=== PATIENT | female | born 1945 | race Caucasian/White ===

== ENCOUNTER 2016-11-10 05:29 | Day surgery (SDC) | payer MEDICARE ==
[2016-11-10] MEDS ORDERED: Dextrose 5%-Lactated Ringers 1,000 ML IV SCH (06:00)
[2016-11-10] MEDS ORDERED: fentaNYL 100 MCG/2 ML SDV ONE (06:48)
[2016-11-10] MEDS ORDERED: Propofol 200 MG/20 ML SDV ONE ×2 (06:48→06:50)
[2016-11-10] MEDS ORDERED: Famotidine 20 MG/2 ML SDV IV PRN (09:45)
[2016-11-10] MEDS ORDERED: Hydrocortisone Sodium Succinate 100 MG/2 ML SDV IV PRN (09:45)
[2016-11-10] MEDS ORDERED: diphenhydrAMINE 50 MG/ML SDV IV PRN (09:45)
[2016-11-10] MEDS ORDERED: Sodium Chloride 0.9% 1,000 ML IV SCH (09:45)
[2016-11-10] MEDS ORDERED: Iron Sucrose Complex 500 MG in Sodium Chloride 0.9% 250 ML IV ONE (10:00)
[2016-11-10 12:53] VITALS: BP 159/81
--- NOTE | 2016-11-16 16:30 | OR ---
DATE OF PROCEDURE: 11/10/2016 PREOPERATIVE DIAGNOSIS: Recent rectal bleeding. POSTOPERATIVE DIAGNOSIS: Recent rectal bleeding associated with excoriated hemorrhoids. OPERATIVE PROCEDURE: Flexible colonoscopy. ANESTHESIA: IV sedation. INDICATION FOR PROCEDURE: This is a 71-year-old female presenting with some recent episodes of rectal bleeding. The patient was placed on chronic Coumadin therapy for atrial fibrillation. The history is suggestive of this being hemorrhoidal in nature as it occurs after bowel movements. The patient denies being consistently constipated. The plan is to proceed with a colonoscopy with biopsies and/or polypectomy as indicated. Potential risks of the procedure including bleeding and perforation were discussed, and the patient wishes to proceed. DESCRIPTION OF PROCEDURE: The patient was taken to the operating room and placed in a left lateral decubitus position. IV sedation was administered, after which the initial digital rectal exam was performed and was unremarkable. Colonoscope was then passed into the rectum with retroflexion revealing more or less diffusely excoriated hemorrhoidal columns. There was no blood or bleeding or single column that would stand out as the likely culprit for the bleeding, but certainly the findings would be consistent with patient with intermittent hemorrhoidal bleeding. The scope was then passed to the level of the cecum. No additional abnormalities were noted. There were no areas of diverticular disease. No polyps or other signs of neoplasia. The scope was then withdrawn. The above findings reconfirmed. At this point, we will have the patient continue to hold off on her Coumadin. We will have the patient see Gabby Oliva and [facility] in about 2 weeks. The patient was noted to be somewhat anemic with hemoglobin 10.6. Her ferritin level was measured, it was quite low at 19, so the patient will be given 510 mg of IV to get that boosted up somewhat and then started on ferrous gluconate 240 mg daily. She will be following with Gabby Oliva in about 2 weeks, and at that time, whether or not to restart the Coumadin can be addressed. Should the patient develop recurrent rectal bleeding, a clinic appointment with surgery department within a day or two of that episode would be preferable as we can likely identify the bleeding source and put hemorrhoid bands as indicated. Gregory Schwartz MD /[id number]
== END 2016-11-10 13:00 | disposition other institution (70) ==
LOC: JP.SDS 05:29
PROVIDERS: ATTEND Surgery
DX: K64.8 Other hemorrhoids (principal); I25.10 Atherosclerotic heart disease of native coronary artery without angina pectoris; I10 Essential (primary) hypertension; E11.9 Type 2 diabetes mellitus without complications; E66.9 Obesity, unspecified; Z88.8 Allergy status to other drugs, medicaments and biological substances
CPT/HCPCS: 36415; 45378; 47000; 82728; 85027; 85610; J1200; J1720; J1756; J2704; J3010; J7042; J7050; S0028

== ENCOUNTER 2016-11-10 13:13 | Inpatient (IN) | payer MEDICARE ==
[2016-11-10] MEDS: Albuterol 0.083% 2.5 MG/3 ML Neb Soln NEB ONE ×2 (13:18→14:18)
[2016-11-10] MEDS ORDERED: Furosemide 40 MG/4 ML VIAL IVPUSH ONE ×2 (13:30→23:35)
[2016-11-10] MEDS ORDERED: Diltiazem 25 MG/5 ML SDV IVPUSH ONE (13:30)
[2016-11-10] MEDS ORDERED: Nitroglycerin 0.4 MG Tab.SL SL ONE (13:38)
[2016-11-10] MEDS ORDERED: Nitroglycerin 0.4 MG Tab.SL ONE (13:38)
[2016-11-10] MEDS ORDERED: Diltiazem 100 MG in Sodium Chloride 0.9% 100 ML IV SCH ×4 (13:45)
--- NOTE | 2016-11-10 13:50 | CR ---
Portable chest Comparison: May 2016. There is cardiac enlargement. There is vascular engorgement. Interstitial infiltrates are demonstrat ed. There are no pleural effusions seen. Impression: 1. CHF with interstitial edema.
[2016-11-10] MEDS: Diltiazem 25 MG/5 ML SDV ONE ×2 (14:15→17:06)
[2016-11-10] MEDS: Furosemide 40 MG/4 ML VIAL ONE ×2 (14:17→17:07)
--- NOTE | 2016-11-10 14:26 | PCM.HP ---
H&P History of Present Illness - General Date of Service: 11/10/16 Admit Problem/Dx: Admission Diagnosis/Problem Admission Diagnosis/Problem Afib, Atrial fibrillation Source of Information: Patient, Provider, Other (Assisted Living insurance healthcare representative Anitra ) History Limitations: Reports: Respiratory distress - History of Present Illness Initial Comments - Free Text/Narative: Olive presented to the hospital today for an outpatient colonoscopy and iron infusion. She had an uneventful colonoscopy but unfortunately during her iron infusion suddenly became very short of breath. Her vital signs quickly went from fairly normal to revealing a heart rate in the 150s as well as a rising blood pressure and quickly dropping oxygen saturation. I was asked to see her in the outpatient setting for further evaluation. her history is somewhat limited because of out of impairment which is chronic. She says that she felt very short of breath and felt like her pants were very tight. She did not complain of any chest pain. She did not notice any palpitations. She has been feeling well recently. She has not had any fevers. She is coughing during our conversation. I did also discuss the situation with her assisted-living coordinator. Per report she has been doing well recently and they have not noticed any concerns. She did not have her morning medications until approximately 11:30 today. When I evaluated her in the outpatient area she was noted to be in atrial fibrillation with a rapid ventricular response and appeared to have a declining respiratory status. She had received Solu-Medrol, Benadryl and Pepcid as part of the usual protocol when there is concern for a transfusion reaction. She was immediately transferred to the ER. - Related Data Allergies/Adverse Reactions: Allergies Allergy/AdvReac Type Severity Reaction Status Date / Time [id number] Reductase Allergy Muscle Verified 11/10/16 06:11 Inhibitor Aches Home Medications: Home Meds Aspirin [Leigha Chewable Aspirin] 81 mg PO DAILY 09/04/13 [History] Diltiazem HCl [Diltiazem ER] 360 mg PO DAILY 09/04/13 [History] Furosemide [Lasix] 40 mg PO DAILY 09/04/13 [History] Lisinopril [Prinivil] 10 mg PO DAILY 09/04/13 [History] Warfarin [Coumadin] 5 mg PO SUTUWETHSA 09/04/13 [History] Carvedilol 6.25 mg PO BID 10/17/14 [History] Warfarin [Coumadin] 6 mg PO MOFR 10/17/14 [History] levETIRAcetam [Levetiracetam] 1,500 mg PO BID 10/17/14 [History] metFORMIN [Glucophage XR] 1,000 mg PO BIDMEALS 10/17/14 [History] Acetaminophen [Tylenol] 650 mg PO ASDIRECTED PRN 05/23/16 [History] Bacitracin/Neomycin/Polymyxin [Neosporin Oint] 1 applic TOP ASDIRECTED PRN 05/24 [History] Calcium Carbonate [Tums] 2 tab PO ASDIRECTED PRN 05/24/16 [History] Ibuprofen 800 mg PO ASDIRECTED PRN 05/24/16 [History] Methyl Salicylate/Menthol [Icy Hot] 1 applic TOP ASDIRECTED PRN 05/24/16 [ History] guaiFENesin [Robitussin] 10 ml PO ASDIRECTED PRN 05/24/16 [History] glipiZIDE [Glucotrol] 5 mg PO BID 11/06/16 [History] Digoxin [Digox] 125 mcg PO DAILY 11/10/16 [History] Past Medical History HEENT History: Reports: Impaired vision Cardiovascular History: Reports: Afib, Bypass, CAD, Hypertension, ND, Stents, Other (see below) Other Cardiovascular History: Edema Gastrointestinal History: Reports: Chronic constipation, GI bleed Genitourinary History: Reports: Urinary incontinence Neurological History: Reports: Neuropathy, peripheral, Seizure, Other (see below ) Other Neuro History: Static Encephalopathy Psychiatric History: Reports: Anxiety, Other (see below) Other Psychiatric History: Mental retardation Endocrine/Metabolic History: Reports: Diabetes, type II, Obesity/BMI 30+ Dermatologic History: Reports: Other (see below) Other Dermatologic History: Actinic Keratosis, Seorrheic Keratosis - Infectious Disease History Infectious Disease History: Reports: Measles - Past Surgical History HEENT Surgical History: Reports: None Cardiovascular Surgical History: Reports: Coronary artery bypass, Coronary artery stent GI Surgical History: Reports: None Female Surgical History: Reports: None Endocrine Surgical History: Reports: None Neurological Surgical History: Reports: None Dermatological Surgical History: Reports: None Social & Family History - Family History Cardiac: Denies: CAD - Tobacco Use Smoking Status *Q: Never Smoker Second Hand Smoke Exposure: No - Caffeine Use Caffeine Use: Reports: Coffee - Alcohol Use Days Per Week of Alcohol Use: 0 - Recreational Drug Use Recreational Drug Use: No H&P Review of Systems - Review of Systems: Review Of Systems: See Below Free Text/Narrative: A complete 12 point review of systems was obtained. Pertinent positives and negatives are noted in the history of present illness. All other systems were reviewed and were negative except as noted. Exam - Exam Exam: See Below - Vital Signs Vital Signs: Last Vital Signs Temp Pulse 124 H 11/10/16 13:58 Resp BP 000/000 H 11/10/16 14:16 Pulse Ox Weight: 72.5 kg - Exam Quality Assessment: supplemental oxygen, urinary catheter General: alert, cooperative, moderate distress HEENT: Conjunctiva clear, Mucosa moist & pink. No: Scleral icterus Neck: supple, trachea midline. No: lymphadenopathy, thyromegaly Lungs: Rales (diffuse rales throughout all lung dominguez). No: Normal respiratory effort (increased work of breathing ), Wheezing Cardiovascular: irregular rhythm, tachycardia. No: systolic murmur Abdomen: Normal Bowel Sounds, Soft. No: Distention, Tenderness Back Exam: normal inspection. No: full range of motion Extremities: normal inspection. No: cyanosis, edema Peripheral Pulses: 2+: dorsalis pedis (L), dorsalis pedis (R) Skin: warm, dry, intact Neuro Extensive - Mental Status: alert, nl response to commands Neuro Extensive - Motor, Sensory, Reflexes: CN II-XII intact, abnormal motor ( some diffuse rigidity of muscles). No: dysarthria, tremor Psychiatric: alert, normal affect - Patient Data Lab Results last 24 hrs: Laboratory Results - last 24 hr 11/10/16 11/10/16 11/10/16 Range/Units 13:33 13:33 13:33 WBC 15.4 H (4.5-11.0) K/uL RBC 4.78 (3.30-5.50) M/uL Hgb 14.4 D (12.0-15.0) g/dL Hct 42.2 (36.0-48.0) % MCV 88 (80-98) fL MCH 30 (27-31) pg MCHC 34 (32-36) % Plt Count 445 H (150-400) K/uL Neut % (Auto) 63 (36-66) % Lymph % (Auto) 26 (24-44) % Caswell % (Auto) 9 H (2-6) % Eos % (Auto) 2 (2-4) % Baso % (Auto) 1 (0-1) % Sodium 138 L (140-148) mmol/L Potassium 3.6 (3.6-5.2) mmol/L Chloride 101 (100-108) mmol/L Carbon Dioxide 25 (21-32) mmol/L Anion Gap 15.6 H (5.0-14.0) mmol/L BUN 6 L (7-18) mg/dL Creatinine 0.9 (0.6-1.0) mg/dL Est Cr Clr Drug Dosing TNP Estimated GFR (MDRD) > 60 (>60) Glucose 218 H (74-106) mg/dL Lactic Acid (0.4-2.0) mmol/L Calcium 8.4 L (8.5-10.1) mg/dL Magnesium 1.8 (1.8-2.4) mg/dL Total Bilirubin 0.2 D (0.2-1.0) mg/dL AST 20 (15-37) U/L ALT 23 (12-78) U/L Alkaline Phosphatase 78 (46-116) U/L Troponin I < 0.017 (0.000-0.056) ng/mL Total Protein 8.6 H (6.4-8.2) g/dL Albumin 3.4 (3.4-5.0) g/dL Globulin 5.2 H (2.3-3.5) g/dL Albumin/Globulin Ratio 0.7 L (1.2-2.2) 11/10/16 Range/Units 13:33 WBC (4.5-11.0) K/uL RBC (3.30-5.50) M/uL Hgb (12.0-15.0) g/dL Hct (36.0-48.0) % MCV (80-98) fL MCH (27-31) pg MCHC (32-36) % Plt Count (150-400) K/uL Neut % (Auto) (36-66) % Lymph % (Auto) (24-44) % Caswell % (Auto) (2-6) % Eos % (Auto) (2-4) % Baso % (Auto) (0-1) % Sodium (140-148) mmol/L Potassium (3.6-5.2) mmol/L Chloride (100-108) mmol/L Carbon Dioxide (21-32) mmol/L Anion Gap (5.0-14.0) mmol/L BUN (7-18) mg/dL Creatinine (0.6-1.0) mg/dL Est Cr Clr Drug Dosing Estimated GFR (MDRD) (>60) Glucose (74-106) mg/dL Lactic Acid 5.3 H (0.4-2.0) mmol/L Calcium (8.5-10.1) mg/dL Magnesium (1.8-2.4) mg/dL Total Bilirubin (0.2-1.0) mg/dL AST (15-37) U/L ALT (12-78) U/L Alkaline Phosphatase (46-116) U/L Troponin I (0.000-0.056) ng/mL Total Protein (6.4-8.2) g/dL Albumin (3.4-5.0) g/dL Globulin (2.3-3.5) g/dL Albumin/Globulin Ratio (1.2-2.2) Result Diagrams: 11/10/16 13:33 11/10/16 13:33 Imaging Impressions last 24 hrs: chest x-ray - images personally reviewed - there is evidence for cardiomegaly, congestive heart failure with diffuse interstitial edema and pulmonary vascular congestion. No evidence for infiltrate or consolidation. EKG INTERPRETATION EKG Date: 11/10/16 Rhythm: a-fib Rate (beats/min): 148 Weatherby: LAD-left axis deviation P-wave: variable QRS: LBBB ST-T: other QT: normal *Q Meaningful Use (ADM) - VTE *Q VTE Criteria *Q: - Stroke *Q Stroke Criteria *Q: - AMI *Q AMI Criteria *Q: - Problem List (1) Atrial fibrillation with rapid ventricular response SNOMED Code(s): 698802819715340 ICD Code: I48.91 - UNSPECIFIED ATRIAL FIBRILLATION Status: Acute Current Visit: Yes (2) Acute congestive heart failure SNOMED Code(s): 70934311 ICD Code: I50.9 - HEART FAILURE, UNSPECIFIED Status: Acute Current Visit : Yes Qualifiers: Congestive heart failure type: unspecified congestive heart failure type Qualified Code(s): I50.9 - Heart failure, unspecified (3) Acute respiratory failure with hypoxia SNOMED Code(s): 59148531, 990229423 ICD Code: J96.01 - ACUTE RESPIRATORY FAILURE WITH HYPOXIA Status: Acute Current Visit: No (4) Diabetes mellitus type II, controlled SNOMED Code(s): 22058048 ICD Code: E11.9 - TYPE 2 DIABETES MELLITUS WITHOUT COMPLICATIONS Status: Chronic Current Visit: No Qualifiers: Diabetes mellitus complication status: with unspecified complications Diabetes mellitus longterm insulin use: without longterm use Qualified Code( s): E11.8 - Type 2 diabetes mellitus with unspecified complications (5) Seizure disorder SNOMED Code(s): 700635749 ICD Code: G40.909 - EPILEPSY, UNSP, NOT INTRACTABLE, WITHOUT STATUS EPILEPTICUS Status: Chronic Current Visit: No Problem List Initiated/Reviewed/Updated: Yes Orders Last 24hrs: Active Orders 24 hr Category Date Time Status Patient Status Manage Transfer [TRANSFER] Routine ADT 11/10/16 14:15 Ordered Cardiac Monitoring [RC] .As Directed Care 11/10/16 13:30 Active EKG Documentation Completion [RC] ASDIRECTED Care 11/10/16 13:29 Active Insert Montoya Catheter [Insert Urinary Catheter] [OM.PC] Care 11/10/16 13:45 Ordered Q24H RT Aerosol Therapy [RC] ASDIRECTED Care 11/10/16 13:31 Active Urinary Catheter Assessment [RC] ASDIRECTED Care 11/10/16 13:32 Active Diltiazem [Cardizem] 100 mg Med 11/10/16 13:45 Active Sodium Chloride 0.9% [Normal Saline] 100 ml IV TITRATE Diltiazem [Cardizem] 100 mg Med 11/10/16 13:45 Active Sodium Chloride 0.9% [Normal Saline] 100 ml IV TITRATE Resuscitation Status Routine Resus Stat 11/10/16 14:19 Ordered EKG 12 Lead [EK] Stat Ther 11/10/16 13:29 Ordered Medication Orders Diltiazem HCl 100 mg/ Sodium (Chloride) 100 mls @ 5 mls/hr IV TITRATE NEW; 5 MG /HR PRN Reason: Protocol Last Admin: 11/10/16 13:58 Dose: 5 mg/hr, 5 mls/hr Diltiazem HCl 100 mg/ Sodium (Chloride) 100 mls @ 5 mls/hr IV TITRATE NEW; 5 MG /HR PRN Reason: Protocol Assessment/Plan Comment:: Assessment and plan - Atrial fibrillation with rapid ventricular response - history of chronic atrial fibrillation. Suboptimal rate control at this time with acute congestive heart failure. Rate has been responding to initial bolus of diltiazem. Blood pressure has tolerated the calcium channel fernie so far. Additional heart failure management as below. -Diltiazem infusion -Cardiac monitoring -Optimize volume status as below -Optimize electrolytes -Continue beta fernie and digoxin -Transition to oral diltiazem, probably in the morning -hold anticoagulation for 2 weeks per recommendations from surgical services Acute congestive heart failure - left ventricular function is unknown at this time. I suspect that the trigger for the heart failure was a combination of chronic atrial fibrillation as well as her colonoscopy preparation last night with significant volume shifts during the preparation. -Recess volume status later in the day -Echocardiogram when available on -Continue beta fernie -Rate control as above History of seizure disorder - no active seizures her recent issues. -Continue antiepileptics Type 2 diabetes mellitus - well controlled by history. -Continue glipizide, hold metformin Maintenance issues - - DVT prophylaxis - enoxaparin - GI prophylaxis - PPI - Nutrition - heart healthy diet - Montoya catheter - placed in the emergency room CODE STATUS - full code Admission justification - This patient will be admitted for inpatient services and is medically appropriate meeting medical necessity for inpatient admission as outlined in my documentation. I reasonably expect the patient will require inpatient services that span a period time over 2 midnights. I reasonably expect this patient to be discharged or transferred within 96 hours [facility]. Disposition - anticipate discharge back to the assisted-living facility after the hospital stay Primary care physician - Dr Miguel Grayson M.D.
[2016-11-10] MEDS ORDERED: Ondansetron 4 MG Tab.DIS PO PRN (16:25)
[2016-11-10] MEDS ORDERED: Morphine 2 MG/ML Syringe IVPUSH PRN (16:25)
[2016-11-10] MEDS ORDERED: Albuterol 0.083% 2.5 MG/3 ML Neb Soln NEB PRN (16:25)
[2016-11-10] MEDS ORDERED: Ondansetron 4 MG/2 ML SDV IV PRN (16:25)
[2016-11-10] MEDS ORDERED: Acetaminophen 325 MG Tab PO PRN (16:25)
[2016-11-10] MEDS ORDERED: Non-Formulary Medication 1 Each (Warfarin [Coumadin] 5 MG) PO ONE (16:25)
[2016-11-10] MEDS ORDERED: Polyethylene Glycol 3350 Powder 17 GM Packet PO PRN (16:25)
[2016-11-10] MEDS ORDERED: Warfarin 5 MG Tab PO ONE (17:00)
[2016-11-10] MEDS: Albuterol 0.083% 2.5 MG/3 ML Neb Soln ONE (17:06)
[2016-11-10] MEDS: glipiZIDE 5 MG Tab PO SCH (17:10)
[2016-11-10] MEDS ORDERED: Aspirin 81 MG Tab.Chew PO ONE (17:46)
[2016-11-10] MEDS ORDERED: Heparin Sodium/D5W 25,000 UNITS/500 ML BAG IV SCH (18:15)
[2016-11-10] MEDS ORDERED: Heparin Sodium 5,000 Units/ML Vial IVPUSH ONE (18:15)
--- NOTE | 2016-11-10 18:45 | PCM.SN ---
- Free Text/Narrative Note: 1700 troponin came back elevated at 3.2. Vital signs have all been stable and patient feels well. She no longer feels short of breath. She is diuresed well with the dose of furosemide. Heart rate is been in the 60s with the diltiazem infusion. Did discuss the case with Dr. Alanis at [facility] in [place]. We're planning to medically manage her here overnight and then we'll transfer her up to the morning for intervention and further evaluation with a coronary angiogram. Heparin drip will be started. She has received a total of 324 mg of aspirin today. Plenty continue the diltiazem infusion overnight as well as a beta fernie as previously scheduled. She will be receiving a statin tonight. Also planning to get serial troponins. Amarjit Grayson MD
[2016-11-10] MEDS: levETIRAcetam 250 MG Tab PO SCH (20:32)
[2016-11-10] MEDS: Carvedilol 6.25 MG Tab PO SCH (20:32)
[2016-11-10] MEDS ORDERED: LEVETIRACETAM 1500 MG PO SCH (21:00)
[2016-11-11] MEDS: Albuterol 0.083% 2.5 MG/3 ML Neb Soln ONE (08:00)
[2016-11-11] MEDS ORDERED: Potassium Chloride 20 MEQ Tab.ER PO ONE (08:30)
[2016-11-11] MEDS: levETIRAcetam 250 MG Tab PO SCH (08:56)
[2016-11-11] MEDS: Carvedilol 6.25 MG Tab PO SCH (08:58)
[2016-11-11] MEDS ORDERED: Enoxaparin 40 MG/0.4 ML Syringe SUBCUT SCH (09:00)
[2016-11-11] MEDS ORDERED: Furosemide 40 MG Tab PO SCH (09:00)
[2016-11-11] MEDS ORDERED: Aspirin 81 MG Tab.Chew PO SCH (09:00)
[2016-11-11] MEDS ORDERED: Lisinopril 10 MG Tab PO SCH (09:00)
[2016-11-11] MEDS ORDERED: DILTIAZEM HCL 360 MG PO SCH (09:00)
[2016-11-11] MEDS ORDERED: Diltiazem 180 MG Cap.CD PO SCH (09:00)
[2016-11-11] MEDS: glipiZIDE 5 MG Tab PO SCH (09:19)
[2016-11-11] MEDS ORDERED: Heparin Sodium 5,000 Units/ML Vial IVPUSH ONE (11:05)
--- NOTE | 2016-11-11 12:18 | PCM.DCSUM1 ---
Discharge Summary - Hospital Course Brief History: 71 year-old female who presented from the [facility] unit to the ED following an outpatient colonoscopy for management of atrial fibrillation with rapid ventricular response and flash pulmonary edema with acute respiratory failure and hypoxia - Discharge Data Discharge Date: 11/11/16 Discharge Disposition: DC/Tfer to Acute Hospital 02 Condition: Fair - Discharge Diagnosis/Problem(s) (1) NSTEMI (non-ST elevated myocardial infarction) SNOMED Code(s): 166713192 ICD Code: I21.4 - NON-ST ELEVATION (NSTEMI) MYOCARDIAL INFARCTION Status: Acute Current Visit: Yes (2) Atrial fibrillation with rapid ventricular response SNOMED Code(s): 034047461457882 ICD Code: I48.91 - UNSPECIFIED ATRIAL FIBRILLATION Status: Acute Current Visit: Yes (3) Acute congestive heart failure SNOMED Code(s): 68219984 ICD Code: I50.9 - HEART FAILURE, UNSPECIFIED Status: Acute Current Visit : Yes Qualifiers: Congestive heart failure type: unspecified congestive heart failure type Qualified Code(s): I50.9 - Heart failure, unspecified (4) Acute respiratory failure with hypoxia SNOMED Code(s): 60931564, 131190825 ICD Code: J96.01 - ACUTE RESPIRATORY FAILURE WITH HYPOXIA Status: Resolved Current Visit: No (5) Diabetes mellitus type II, controlled SNOMED Code(s): 20952038 ICD Code: E11.9 - TYPE 2 DIABETES MELLITUS WITHOUT COMPLICATIONS Status: Chronic Current Visit: No Qualifiers: Diabetes mellitus complication status: with unspecified complications Diabetes mellitus terminal clerk insulin use: without jail use Qualified Code( s): E11.8 - Type 2 diabetes mellitus with unspecified complications (6) Seizure disorder SNOMED Code(s): 043254699 ICD Code: G40.909 - EPILEPSY, UNSP, NOT INTRACTABLE, WITHOUT STATUS EPILEPTICUS Status: Chronic Current Visit: No - Patient Summary/Data Hospital Course: Olive had a colonoscopy performed yesterday morning to look for potential source of GI bleeding. This colonoscopy revealed some minor hemorrhoids but no other source of bleeding. After the procedure she was stable. She started to receive an infusion of iron. Approximately 1 hour into the transfusion she suddenly developed and the sensation that her abdomen was bloated and she became very tachypnic and short of breath. Her vital signs quickly changed from stable to tachycardic with a heart rate in the 150s and she had a slow progression from a normal blood pressure to moderate hypertension. 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 With a respiratory rate in the 40s and her tachycardia I transferred her to the emergency room for further evaluation. EKG revealed atrial fibrillation with rapid ventricular response and she was given a 20 mg bolus of diltiazem. Chest x-ray and examination were consistent with pulmonary edema and she received 60 mg of IV furosemide. Her heart rate did improve after the injection of diltiazem and respiratory status improved over the next hour after the furosemide injection. initial laboratory testing including troponin was essentially unremarkable. She was transferred to the intensive care unit in stable condition. her rate improved with the diltiazem infusion and her blood pressures remained stable. Respiratory rate slowly declined to around 20. Clinically she said she was feeling much better at this point. The evening after admission to the intensive care unit a second troponin level was drawn and this was elevated at 3.2. I called Dr Alanis with the cardiology service at [facility] in [place]. He recommended transfer for angiogram either last evening or first thing this morning. we elected to keep the patient here in the manage medically with aspirin and heparin infusion. We continued the diltiazem infusion overnight with good heart rate control. She remained clinically stable throughout the night. her third troponin level came back at 6:11 PM last night. Troponin level this morning is 4. Clinically she feels well. She does not feel short of breath and has not had any chest pain. Heart rate and blood pressure have been very stable. Discussed the case with the on-call hospitalist in [place] and she was agreeable to receive the transfer. She will be transferred to [facility] via ambulance for a cardiology evaluation and angiogram to further evaluate the non-ST elevation myocardial infarction. She has been n.p.o. She has been on heparin drip since yesterday evening. She did receive her usual home medications this morning. - Patient Instructions Diet: NPO Activity: As Tolerated Driving: Do Not Drive Notify Provider of: Increased Pain, Nausea and/or Vomiting - Discharge Plan Home Medications: Home Meds Aspirin [Leigha Chewable Aspirin] 81 mg PO DAILY 09/04/13 [History] Diltiazem HCl [Diltiazem ER] 360 mg PO DAILY 09/04/13 [History] Furosemide [Lasix] 40 mg PO DAILY 09/04/13 [History] Lisinopril [Prinivil] 10 mg PO DAILY 09/04/13 [History] Warfarin [Coumadin] 5 mg PO SUTUWETHSA 09/04/13 [History] Carvedilol 6.25 mg PO BID 10/17/14 [History] Warfarin [Coumadin] 6 mg PO MOFR 10/17/14 [History] levETIRAcetam [Levetiracetam] 1,500 mg PO BID 10/17/14 [History] metFORMIN [Glucophage XR] 1,000 mg PO BIDMEALS 10/17/14 [History] Acetaminophen [Tylenol] 650 mg PO ASDIRECTED PRN 05/23/16 [History] Bacitracin/Neomycin/Polymyxin [Neosporin Oint] 1 applic TOP ASDIRECTED PRN 05/24 [History] Calcium Carbonate [Tums] 2 tab PO ASDIRECTED PRN 05/24/16 [History] Ibuprofen 800 mg PO ASDIRECTED PRN 05/24/16 [History] Methyl Salicylate/Menthol [Icy Hot] 1 applic TOP ASDIRECTED PRN 05/24/16 [ History] guaiFENesin [Robitussin] 10 ml PO ASDIRECTED PRN 05/24/16 [History] glipiZIDE [Glucotrol] 5 mg PO BID 11/06/16 [History] Digoxin [Digox] 125 mcg PO DAILY 11/10/16 [History] Forms: ED Department Discharge Referrals: Lee Rivera MD [Primary Care Provider] - - Discharge Summary/Plan Comment DC Time >30 min.: Yes (60 - transfer to acute hospital) - Patient Data Vitals - Most Recent: Last Vital Signs Temp 37.3 C 11/11/16 11:00 Pulse 87 11/11/16 11:00 Resp 15 11/11/16 11:00 BP 135/81 11/11/16 11:00 Pulse Ox 96 11/11/16 11:00 Weight - Most Recent: 72.938 kg I&O - Last 24 hours: Intake & Output 11/10/16 11/11/16 11/11/16 22:59 06:59 14:59 Intake Total 375 175 Output Total 1350 1525 850 Balance -975 -1350 -850 Lab Results - Last 24 hrs: Laboratory Results - last 24 hr 11/10/16 11/10/16 11/10/16 Range/Units 17:05 17:11 23:00 WBC (4.5-11.0) K/uL RBC (3.30-5.50) M/uL Hgb (12.0-15.0) g/dL Hct (36.0-48.0) % MCV (80-98) fL MCH (27-31) pg MCHC (32-36) % Plt Count (150-400) K/uL APTT (27.0-36.0) sec Sodium (140-148) mmol/L Potassium (3.6-5.2) mmol/L Chloride (100-108) mmol/L Carbon Dioxide (21-32) mmol/L Anion Gap (5.0-14.0) mmol/L BUN (7-18) mg/dL Creatinine (0.6-1.0) mg/dL Est Cr Clr Drug Dosing mL/min Estimated GFR (MDRD) (>60) Glucose (74-106) mg/dL Calcium (8.5-10.1) mg/dL Troponin I 3.251 H* 6.010 H* (0.000-0.056) ng/mL Urine Color Yellow Urine Appearance Clear Urine pH 5.0 (4.5-8.0) Ur Specific [place] 1.015 (1.008-1.030) Urine Protein Negative (NEGATIVE) mg/dL Urine Glucose (UA) Normal (NEGATIVE) mg/dL Urine Ketones Negative (NEGATIVE) mg/dL Urine Occult Blood Negative (NEGATIVE) Urine Nitrite Negative (NEGATIVE) Urine Bilirubin Negative (NEGATIVE) Urine Urobilinogen Normal (NORMAL) mg/dL Ur Leukocyte Esterase Negative (NEGATIVE) Urine RBC 0-5 (0-5) Urine WBC 0-5 (0-5) Ur Epithelial Cells Rare Amorphous Sediment Few Urine Bacteria Not seen Urine Mucus Not seen 11/11/16 11/11/16 11/11/16 Range/Units 02:20 05:56 05:56 WBC 12.4 H (4.5-11.0) K/uL RBC 3.74 (3.30-5.50) M/uL Hgb 10.9 L D (12.0-15.0) g/dL Hct 33.1 L (36.0-48.0) % MCV 89 (80-98) fL MCH 29 (27-31) pg MCHC 33 (32-36) % Plt Count 360 (150-400) K/uL APTT 105.6 H* (27.0-36.0) sec Sodium 140 (140-148) mmol/L Potassium 3.2 L (3.6-5.2) mmol/L Chloride 103 (100-108) mmol/L Carbon Dioxide 29 (21-32) mmol/L Anion Gap 11.2 (5.0-14.0) mmol/L BUN 6 L (7-18) mg/dL Creatinine 0.8 (0.6-1.0) mg/dL Est Cr Clr Drug Dosing 56.92 mL/min Estimated GFR (MDRD) > 60 (>60) Glucose 112 H (74-106) mg/dL Calcium 7.4 L (8.5-10.1) mg/dL Troponin I (0.000-0.056) ng/mL Urine Color Urine Appearance Urine pH (4.5-8.0) Ur Specific [place] (1.008-1.030) Urine Protein (NEGATIVE) mg/dL Urine Glucose (UA) (NEGATIVE) mg/dL Urine Ketones (NEGATIVE) mg/dL Urine Occult Blood (NEGATIVE) Urine Nitrite (NEGATIVE) Urine Bilirubin (NEGATIVE) Urine Urobilinogen (NORMAL) mg/dL Ur Leukocyte Esterase (NEGATIVE) Urine RBC (0-5) Urine WBC (0-5) Ur Epithelial Cells Amorphous Sediment Urine Bacteria Urine Mucus 11/11/16 11/11/16 Range/Units 05:56 10:00 WBC (4.5-11.0) K/uL RBC (3.30-5.50) M/uL Hgb (12.0-15.0) g/dL Hct (36.0-48.0) % MCV (80-98) fL MCH (27-31) pg MCHC (32-36) % Plt Count (150-400) K/uL APTT 47.8 H (27.0-36.0) sec Sodium (140-148) mmol/L Potassium (3.6-5.2) mmol/L Chloride (100-108) mmol/L Carbon Dioxide (21-32) mmol/L Anion Gap (5.0-14.0) mmol/L BUN (7-18) mg/dL Creatinine (0.6-1.0) mg/dL Est Cr Clr Drug Dosing mL/min Estimated GFR (MDRD) (>60) Glucose (74-106) mg/dL Calcium (8.5-10.1) mg/dL Troponin I 4.304 H* (0.000-0.056) ng/mL Urine Color Urine Appearance Urine pH (4.5-8.0) Ur Specific [place] (1.008-1.030) Urine Protein (NEGATIVE) mg/dL Urine Glucose (UA) (NEGATIVE) mg/dL Urine Ketones (NEGATIVE) mg/dL Urine Occult Blood (NEGATIVE) Urine Nitrite (NEGATIVE) Urine Bilirubin (NEGATIVE) Urine Urobilinogen (NORMAL) mg/dL Ur Leukocyte Esterase (NEGATIVE) Urine RBC (0-5) Urine WBC (0-5) Ur Epithelial Cells Amorphous Sediment Urine Bacteria Urine Mucus Med Orders - Current: Current Medications Acetaminophen (Tylenol) 650 mg PO Q4H PRN PRN Reason: Pain Albuterol (Proventil Neb Soln) 2.5 mg NEB Q4H PRN PRN Reason: Shortness Of Breath/wheezing Last Admin: 11/10/16 20:32 Dose: 2.5 mg Aspirin (Aspirin) 81 mg PO DAILY [facility] [place] Last Admin: 11/11/16 08:58 Dose: 81 mg Carvedilol (Coreg) 6.25 mg PO BID [facility] [place] Last Admin: 11/11/16 08:58 Dose: 6.25 mg Diltiazem HCl (Cardizem Cd) 360 mg PO DAILY [facility] [place] Last Admin: 11/11/16 08:55 Dose: 360 mg Furosemide (Lasix) 40 mg PO DAILY [facility] [place] Last Admin: 11/11/16 08:58 Dose: 40 mg Glipizide (Glucotrol) 5 mg PO BIDAC [facility] [place] Last Admin: 11/11/16 09:19 Dose: Not Given Heparin Sodium/Dextrose (Heparin 25,000 Units In D5w 500 Ml) 25,000 units in 500 mls @ 17.4 mls/hr IV TITRATE NEW; 12 UNITS/KG/HR PRN Reason: Protocol Last Titration: 11/11/16 11:24 Dose: 11 units/kg/hr, 16.046 mls/hr Levetiracetam (Keppra) 1,500 mg PO BID [facility] [place] Last Admin: 11/11/16 08:56 Dose: 1,500 mg Lisinopril (Prinivil) 10 mg PO DAILY [facility] [place] [place] Last Admin: 11/11/16 08:58 Dose: 10 mg Morphine Sulfate (Morphine) 2 mg IVPUSH Q2H PRN PRN Reason: Pain (severe 7-10) Ondansetron HCl (Zofran Odt) 4 mg PO Q6H PRN PRN Reason: Nausea able to take PO Ondansetron HCl (Zofran) 4 mg IV Q6H PRN PRN Reason: Nausea/Vomiting Polyethylene Glycol (Miralax) 17 gm PO DAILY PRN PRN Reason: Constipation Discontinued Medications Albuterol (Proventil Neb Soln) 2.5 mg NEB ONETIME ONE Stop: 11/10/16 13:32 Last Admin: 11/10/16 13:18 Dose: 2.5 mg Albuterol (Proventil Neb Soln) Confirm Administered Dose 2.5 mg .ROUTE .STK-MED ONE Stop: 11/10/16 13:17 Last Admin: 11/11/16 08:00 Dose: Not Given Aspirin (Aspirin) 243 mg PO ONETIME ONE Stop: 11/10/16 17:47 Last Admin: 11/10/16 18:08 Dose: 243 mg Diltiazem HCl (Diltiazem) 20 mg IVPUSH ONETIME ONE Stop: 11/10/16 13:31 Last Admin: 11/10/16 13:26 Dose: 20 mg Diltiazem HCl (Diltiazem) Confirm Administered Dose 25 mg .ROUTE .STK-MED ONE Stop: 11/10/16 13:25 Last Admin: 11/10/16 14:15 Dose: Not Given Enoxaparin Sodium (Lovenox) 40 mg SUBCUT DAILY [facility] [place] [place] Furosemide (Lasix) 60 mg IVPUSH NOW ONE Stop: 11/10/16 13:31 Last Admin: 11/10/16 13:33 Dose: 60 mg Furosemide (Lasix) Confirm Administered Dose 80 mg .ROUTE .STK-MED ONE Stop: 11/10/16 13:26 Last Admin: 11/10/16 14:17 Dose: Not Given Furosemide (Lasix) 40 mg IVPUSH ONETIME ONE Stop: 11/10/16 23:36 Last Admin: 11/11/16 00:00 Dose: 40 mg Heparin Sodium (Porcine) (Heparin Sodium) 4,000 units IVPUSH .BOLUS ONE Stop: 11/10/16 18:16 Last Admin: 11/10/16 18:32 Dose: 4,000 units Heparin Sodium (Porcine) (Heparin Sodium) 1,000 units IVPUSH .BOLUS ONE Stop: 11/11/16 11:06 Last Admin: 11/11/16 11:23 Dose: 1,000 units Diltiazem HCl 100 mg/ Sodium (Chloride) 100 mls @ 5 mls/hr IV TITRATE NEW; 5 MG /HR PRN Reason: Protocol Last Titration: 11/11/16 09:09 Dose: 0 mg/hr, 0 mls/hr Diltiazem HCl 100 mg/ Sodium (Chloride) 100 mls @ 5 mls/hr IV TITRATE NEW; 5 MG /HR PRN Reason: Protocol Nitroglycerin (Nitrostat) 0.4 mg SL ONETIME ONE Stop: 11/10/16 13:39 Last Admin: 11/10/16 14:15 Dose: 0.4 mg Nitroglycerin (Nitrostat) Confirm Administered Dose 0.4 mg .ROUTE .STK-MED ONE Stop: 11/10/16 13:39 Last Admin: 11/10/16 14:16 Dose: Not Given Potassium Chloride (Klor-Con M20) 40 meq PO ONETIME ONE Stop: 11/11/16 08:31 Last Admin: 11/11/16 08:59 Dose: 40 meq Warfarin Sodium (Coumadin) 5 mg PO ONETIME ONE Stop: 11/10/16 17:01 *Q Meaningful Use (DIS) - VTE *Q VTE Criteria *Q: - Stroke *Q Stroke Criteria *Q: - AMI *Q AMI Criteria *Q:
[2016-11-11 12:41] VITALS: BP 113/51
== END 2016-11-11 14:15 | DRG 280 ==
LOC: JP.ED 13:13 → JP.ICU 14:15
PROVIDERS: ADMIT Internal Medicine; ATTEND Internal Medicine
DX: I48.2 Chronic atrial fibrillation (principal); J96.01 Acute respiratory failure with hypoxia; I21.4 Non-ST elevation (NSTEMI) myocardial infarction; I11.0 Hypertensive heart disease with heart failure; I50.9 Heart failure, unspecified; I25.10 Atherosclerotic heart disease of native coronary artery without angina pectoris; E11.42 Type 2 diabetes mellitus with diabetic polyneuropathy; Z79.84 Long term (current) use of oral hypoglycemic drugs; F79 Unspecified intellectual disabilities; R06.02 Shortness of breath; Z79.01 Long term (current) use of anticoagulants; G40.909 Epilepsy, unspecified, not intractable, without status epilepticus; I25.2 Old myocardial infarction; Z95.1 Presence of aortocoronary bypass graft; Z95.5 Presence of coronary angioplasty implant and graft; H54.7 Unspecified visual loss; Z79.82 Long term (current) use of aspirin; Z88.8 Allergy status to other drugs, medicaments and biological substances
CPT/HCPCS: 36415; 71010 ×2; 80053; 83605; 83735; 84484; 85025; 93005; J1940; J7030; 80048; 81001; 85027; 85730; 93010; 96374; 96375; 99239; 99285-25; A9270-GY; J1644; J3490

== ENCOUNTER 2017-02-04 06:49 | Inpatient (IN) | payer MEDICARE ==
[2017-02-04] MEDS ORDERED: Ibuprofen 600 MG Tab PO ONE (07:37)
--- NOTE | 2017-02-04 07:40 | EDM.PDOC ---
[id number] Complaint: ROLLED RIGHT ANKLE Time Seen by Provider: 02/04/17 07:38 Source of Information: Reports: Patient, [facility] Records History Limitations: Reports: No Limitations - History of Present Illness INITIAL COMMENTS - FREE TEXT/NARRATIVE: pt arrived with a painful rt ankle. She went in the bathroom this am and the floor had just been mopped and she slipped. She is now having trouble weight bearing. Onset: Today Duration: Hour(s): Location: Reports: Lower Extremity, Right Right Ankle Pain Score (Numeric/FACES): 3 - Related Data Allergies Allergy/AdvReac Type Severity Reaction Status Date / Time Oawgktl-Veo-Bgc Reductase AdvReac Muscle Verified 02/04/17 06:56 Inhibitor Aches Home Meds: Home Meds Aspirin [Leigha Chewable Aspirin] 81 mg PO DAILY 09/04/13 [History] Furosemide [Lasix] 40 mg PO DAILY 09/04/13 [History] Lisinopril [Prinivil] 5 mg PO DAILY 09/04/13 [History] Warfarin [Coumadin] 5 mg PO SUTUWETHSA 09/04/13 [History] Carvedilol 6.25 mg PO BID 10/17/14 [History] Warfarin [Coumadin] 6 mg PO MOFR 10/17/14 [History] levETIRAcetam [Levetiracetam] 1,500 mg PO BID 10/17/14 [History] metFORMIN [Glucophage XR] 1,000 mg PO BIDMEALS 10/17/14 [History] Acetaminophen [Tylenol] 650 mg PO ASDIRECTED PRN 05/23/16 [History] Bacitracin/Neomycin/Polymyxin [Neosporin Oint] 1 applic TOP ASDIRECTED PRN 05/24 [History] Calcium Carbonate [Tums] 2 tab PO ASDIRECTED PRN 05/24/16 [History] guaiFENesin [Robitussin] 10 ml PO ASDIRECTED PRN 05/24/16 [History] glipiZIDE [Glucotrol] 5 mg PO BID 11/06/16 [History] Clopidogrel [Plavix] 1 tab PO DAILY 02/04/17 [History] Hydrocortisone [Hydrocortisone 1% Crm] 1 dose TOP ASDIRECTED 02/04/17 [History] Loperamide [Imodium] 2 cap PO ASDIRECTED PRN 02/04/17 [History] Magnesium Hydroxide [Milk of Magnesia] 30 ml PO ASDIRECTED 02/04/17 [History] Menthol/Methyl Salicylate [Icy Hot] 1 dose TOP ASDIRECTED PRN 02/04/17 [History] Phenol [Cepastat] 1 dose PO ASDIRECTED 02/04/17 [History] atorvaSTATin Calcium [Atorvastatin Calcium] 1 tab PO DAILY 02/04/17 [History] diphenhydrAMINE [Benadryl] 1 tab PO Q4H PRN 02/04/17 [History] Past Medical History HEENT History: Reports: Impaired Vision Cardiovascular History: Reports: Afib, Bypass, CAD, Hypertension, [place], Stents, Other (See Below) Other Cardiovascular History: Edema Gastrointestinal History: Reports: Chronic Constipation, GI Bleed Genitourinary History: Reports: Urinary Incontinence Neurological History: Reports: Neuropathy, Peripheral, Seizure, Other (See Below ) Other Neuro History: static encephalopathy Psychiatric History: Reports: Anxiety, Other (See Below) Other Psychiatric History: mental disability. Endocrine/Metabolic History: Reports: Diabetes, Type II, Obesity/BMI 30+ Dermatologic History: Reports: Other (See Below) Other Dermatologic History: actinic keratosis, seorrheic keratosis - Infectious Disease History Infectious Disease History: Reports: Measles Other Infectious Disease History: unknown - Past Surgical History Cardiovascular Surgical History: Reports: Coronary Artery Bypass, Coronary Artery Stent Social & Family History - Tobacco Use Smoking Status *Q: Never Smoker Second Hand Smoke Exposure: No - Caffeine Use Caffeine Use: Reports: Coffee - Alcohol Use Days Per Week of Alcohol Use: 0 - Recreational Drug Use Recreational Drug Use: No Review of Systems - Review of Systems Review Of Systems: See Below Constitutional: Reports: No Symptoms Eyes: Reports: No Symptoms Ears: Reports: No Symptoms Nose: Reports: No Symptoms Mouth/Throat: Reports: No Symptoms Respiratory: Reports: No Symptoms Cardiovascular: Reports: No Symptoms GI/Abdominal: Reports: No Symptoms Genitourinary: Reports: No Symptoms Musculoskeletal: Reports: Other (pain and swelling in the rt ankle. ) ED EXAM, GENERAL - Physical Exam Exam: See Below Free Text/Narrative:: pt got up this am and she ate breakfast at about 6 am. She went into the bathroom and they had just mopped the floor. She slipped on the wet floor and she twisted her rt ankle Exam Limited By: No Limitations General Appearance: Alert, Anxious, Moderate Distress Ears: Normal TMs Nose: Normal Inspection Throat/Mouth: Normal Inspection Head: Atraumatic Neck: Normal Inspection Respiratory/Chest: No Respiratory Distress Cardiovascular: Tachycardia, Irregularly Irregular GI/Abdominal: Soft, Non-Tender (Female) Exam: Deferred Rectal (Female) Exam: Deferred Back Exam: Normal Inspection Extremities: Other (Pt has a marked swelling in the rt ankle. This is very tender for her. She fell in the bathroom on a wet floor. ) Neurological: Alert, Oriented, Normal Cognition Psychiatric: Normal Affect Course - Vital Signs Last Recorded V/S: Last Vital Signs Temp 37.1 C 02/05/17 07:05 Pulse 92 02/05/17 02:54 Resp 16 02/05/17 07:05 BP 148/98 H 02/05/17 07:05 Pulse Ox 98 02/05/17 07:05 - Orders/Labs/Meds Orders: Active Orders 24 hr Category Date Time Status Patient Status [ADT] Routine ADT 02/04/17 13:16 Active Bedrest Bedside Commode [RC] ASDIRECTED Care 02/04/17 13:16 Active Intake and Output [RC] QSHIFT Care 02/04/17 13:16 Active Notify Provider Consults [RC] ASDIRECTED Care 02/04/17 13:16 Active Notify Provider Vital Signs [RC] ASDIRECTED Care 02/04/17 13:16 Active Oxygen Therapy [RC] PRN Care 02/04/17 13:16 Active VTE/DVT Education [RC] Per Unit Routine Care 02/04/17 13:16 Active Vital Signs [RC] Q4H Care 02/04/17 13:16 Active Consult to Physician [CONS] Routine Cons 02/04/17 13:16 Ordered OT Evaluation and Treatment [CONS] Routine Cons 02/05/17 07:00 Active PT Evaluation and Treatment [CONS] Routine Cons 02/05/17 07:00 Active Advance Diet Instructions [DIET] Diet 02/04/17 Lunch Active Nothing per Oral Now Diet [DIET] Diet 02/04/17 Lunch Active Fluoro Up To 1Hr [CR] Routine Exams 02/04/17 11:45 Taken BASIC METABOLIC PANEL,BMP [CHEM] AM Lab 02/06/17 05:11 Ordered CBC W/O DIFF,HEMOGRAM [HEME] AM Lab 02/06/17 05:11 Ordered GLUCOSE POC LAB TO COLLECT [POC] BIDAC Lab 02/05/17 17:00 Ordered GLUCOSE POC LAB TO COLLECT [POC] BIDAC Lab 02/06/17 08:00 Ordered GLUCOSE POC LAB TO COLLECT [POC] BIDAC Lab 02/06/17 17:00 Ordered GLUCOSE POC LAB TO COLLECT [POC] BIDAC Lab 02/07/17 08:00 Ordered GLUCOSE POC LAB TO COLLECT [POC] BIDAC Lab 02/07/17 17:00 Ordered GLUCOSE POC LAB TO COLLECT [POC] BIDAC Lab 02/08/17 08:00 Ordered GLUCOSE POC LAB TO COLLECT [POC] BIDAC Lab 02/08/17 17:00 Ordered GLUCOSE POC LAB TO COLLECT [POC] BIDAC Lab 02/09/17 08:00 Ordered INR,PT,PROTHROMBIN TIME [COAG] AM Lab 02/06/17 05:11 Ordered Acetaminophen [Tylenol] Med 02/04/17 13:16 Active 650 mg PO Q4H PRN Aspirin Med 02/05/17 09:00 Active 81 mg PO DAILY Clopidogrel [Plavix] Med 02/05/17 09:00 Active 75 mg PO DAILY Docusate Sodium/Sennosides [Senna Plus] Med 02/04/17 13:16 Active 1 tab PO BID PRN Morphine Med 02/04/17 13:16 Active 2 - 4 mg IVPUSH Q2H PRN Ondansetron [Zofran ODT] Med 02/04/17 13:16 Active 4 mg PO Q6H PRN Sodium Chloride 0.9% [Normal Saline] 1,000 ml Med 02/04/17 13:16 Active IV ASDIRECTED diphenhydrAMINE [Benadryl] Med 02/04/17 13:16 Active 25 mg PO Q4H PRN glipiZIDE [Glucotrol] Med 02/04/17 21:00 Active 5 mg PO BID metFORMIN [Glucophage XR] Med 02/04/17 17:00 Active 1,000 mg PO BIDMEALS oxyCODONE Med 02/04/17 13:16 Active 5 mg PO Q4H PRN traMADol [Ultram] Med 02/04/17 11:48 Active 100 mg PO Q4H PRN VTE Pharmacological Contraindications [AST] Per Unit Oth 02/04/17 13:16 Ordered Routine Weight bearing status [OM.PC] Routine Oth 02/04/17 11:48 Ordered Weight bearing status [OM.PC] Routine Oth 02/04/17 13:16 Ordered Resuscitation Status Routine Resus Stat 02/04/17 10:48 Ordered EKG 12 Lead [EK] Routine Ther 02/04/17 08:35 Stop Req Medication Orders Acetaminophen (Tylenol) 650 mg PO Q4H PRN PRN Reason: Pain (Mild 1-3)/fever Aspirin (Aspirin) 81 mg PO DAILY [facility] Atorvastatin Calcium (Lipitor) 80 mg PO BEDTIME [facility] Last Admin: 02/04/17 21:22 Dose: 80 mg Carvedilol (Coreg) 6.25 mg PO BID [facility] Last Admin: 02/04/17 21:20 Dose: 6.25 mg Clopidogrel Bisulfate (Plavix) 75 mg PO DAILY [facility] Diphenhydramine HCl (Benadryl) 25 mg PO Q4H PRN PRN Reason: Rash Furosemide (Lasix) 40 mg PO DAILY [facility] Glipizide (Glucotrol) 5 mg PO BID [facility] Last Admin: 02/04/17 21:20 Dose: 5 mg Sodium Chloride (Normal Saline) 1,000 mls @ 100 mls/hr IV ASDIRECTED [facility] Last Admin: 02/05/17 04:24 Dose: 100 mls/hr Levetiracetam (Keppra) 1,500 mg PO BID [facility] Last Admin: 02/04/17 21:21 Dose: 1,500 mg Lisinopril (Prinivil) 5 mg PO DAILY [facility] Metformin HCl (Glucophage Xr) 1,000 mg [facility] Last Admin: 02/05/17 07:43 Dose: 1,000 mg Admin: 02/04/17 17:17 Dose: 1,000 mg Morphine Sulfate (Morphine) 2 - 4 mg IVPUSH Q2H PRN PRN Reason: Pain (severe 7-10) Ondansetron HCl (Zofran Odt) 4 mg PO Q6H PRN PRN Reason: Nausea able to take PO Oxycodone HCl (Oxycodone) 5 mg PO Q4H PRN PRN Reason: Pain (moderate 4-6) Senna/Docusate Sodium (Senna Plus) 1 tab PO BID PRN PRN Reason: Constipation Tramadol HCl (Ultram) 100 mg PO Q4H PRN PRN Reason: Pain Warfarin Sodium (Coumadin) 5 mg PO SuTuWeThSa@1300 NEW Warfarin Sodium (Coumadin) 6 mg PO MoFr@1300 [facility] Labs: Laboratory Tests 02/04/17 02/04/17 02/04/17 Range/Units 08:33 08:34 08:34 WBC 11.6 H (4.5-11.0) K/uL RBC 4.52 (3.30-5.50) M/uL Hgb 12.9 D (12.0-15.0) g/dL Hct 39.3 (36.0-48.0) % MCV 87 (80-98) fL MCH 29 (27-31) pg MCHC 33 (32-36) % Plt Count 266 (150-400) K/uL Neut % (Auto) 85 H (36-66) % Lymph % (Auto) 10 L (24-44) % [place] % (Auto) 4 (2-6) % Eos % (Auto) 1 L (2-4) % Baso % (Auto) 0 (0-1) % PT 20.9 H (9.5-12.0) sec INR 1.90 H (0.80-1.20) Sodium 136 L (140-148) mmol/L Potassium 3.8 (3.6-5.2) mmol/L Chloride 99 L (100-108) mmol/L Carbon Dioxide 28 (21-32) mmol/L Anion Gap 12.8 (5.0-14.0) mmol/L BUN 17 D (7-18) mg/dL Creatinine 1.0 (0.6-1.0) mg/dL Est Cr Clr Drug Dosing 43.30 mL/min Estimated GFR (MDRD) 55 L (>60) Glucose 234 H (74-106) mg/dL Calcium 8.7 D (8.5-10.1) mg/dL Total Bilirubin 0.5 D (0.2-1.0) mg/dL AST 19 (15-37) U/L ALT 21 (12-78) U/L Alkaline Phosphatase 65 (46-116) U/L Kcl-Z-Rnmurbmayza Pept (5-125) pg/mL Total Protein 7.8 (6.4-8.2) g/dL Albumin 3.2 L (3.4-5.0) g/dL Globulin 4.6 H (2.3-3.5) g/dL Albumin/Globulin Ratio 0.7 L (1.2-2.2) 02/04/17 Range/Units 08:40 WBC (4.5-11.0) K/uL RBC (3.30-5.50) M/uL Hgb (12.0-15.0) g/dL Hct (36.0-48.0) % MCV (80-98) fL MCH (27-31) pg MCHC (32-36) % Plt Count (150-400) K/uL Neut % (Auto) (36-66) % Lymph % (Auto) (24-44) % [place] % (Auto) (2-6) % Eos % (Auto) (2-4) % Baso % (Auto) (0-1) % PT (9.5-12.0) sec INR (0.80-1.20) Sodium (140-148) mmol/L Potassium (3.6-5.2) mmol/L Chloride (100-108) mmol/L Carbon Dioxide (21-32) mmol/L Anion Gap (5.0-14.0) mmol/L BUN (7-18) mg/dL Creatinine (0.6-1.0) mg/dL Est Cr Clr Drug Dosing mL/min Estimated GFR (MDRD) (>60) Glucose (74-106) mg/dL Calcium (8.5-10.1) mg/dL Total Bilirubin (0.2-1.0) mg/dL AST (15-37) U/L ALT (12-78) U/L Alkaline Phosphatase (46-116) U/L Neu-M-Twzlnnibbth Pept 958 H (5-125) pg/mL Total Protein (6.4-8.2) g/dL Albumin (3.4-5.0) g/dL Globulin (2.3-3.5) g/dL Albumin/Globulin Ratio (1.2-2.2) Meds: Medications Generic Name Dose Route Start Last Admin Trade Name Freq PRN Reason Stop Dose Admin Acetaminophen 650 mg 02/04/17 13:16 Tylenol PO Q4H PRN Pain (Mild 1-3)/fever Aspirin 81 mg 02/05/17 09:00 Aspirin PO DAILY [facility] Atorvastatin Calcium 80 mg 02/04/17 21:00 02/04/17 21:22 Lipitor PO 80 mg BEDTIME [facility] Administration Carvedilol 6.25 mg 02/04/17 21:00 02/04/17 21:20 Coreg PO 6.25 mg BID [facility] Administration Clopidogrel Bisulfate 75 mg 02/05/17 09:00 Plavix PO DAILY [facility] Diphenhydramine HCl 25 mg 02/04/17 13:16 Benadryl PO Q4H PRN Rash Furosemide 40 mg 02/05/17 09:00 Lasix PO DAILY [facility] Glipizide 5 mg 02/04/17 21:00 02/04/17 21:20 Glucotrol PO 5 mg BID [facility] Administration Sodium Chloride 1,000 mls @ 100 mls/hr 02/04/17 13:16 02/05/17 04:24 Normal Saline IV 100 mls/hr ASDIRECTED [facility] Administration Levetiracetam 1,500 mg 02/04/17 21:00 02/04/17 21:21 Keppra PO 1,500 mg BID [facility] Administration Lisinopril 5 mg 02/05/17 09:00 Prinivil PO DAILY [facility] Metformin HCl 1,000 mg 02/04/17 17:00 02/05/17 07:43 Glucophage Xr PO 1,000 mg BIDMEALS [facility] Administration Morphine Sulfate 2 - 4 mg 02/04/17 13:16 Morphine IVPUSH Q2H PRN Pain (severe 7-10) Ondansetron HCl 4 mg 02/04/17 13:16 Zofran Odt PO Q6H PRN Nausea able to take PO Oxycodone HCl 5 mg 02/04/17 13:16 Oxycodone PO Q4H PRN Pain (moderate 4-6) Senna/Docusate Sodium 1 tab 02/04/17 13:16 Senna Plus PO BID PRN Constipation Tramadol HCl 100 mg 02/04/17 11:48 Ultram PO Q4H PRN Pain Warfarin Sodium 5 mg 02/06/17 13:00 Coumadin PO SuTuWeThSa@1300 NEW Warfarin Sodium 6 mg 02/05/17 13:00 Coumadin PO MoFr@1300 [facility] Discontinued Medications Generic Name Dose Route Start Last Admin Trade Name Freq PRN Reason Stop Dose Admin Bupivacaine HCl Confirm 02/04/17 11:25 02/04/17 12:05 Marcaine 0.5% Administered 02/04/17 11:26 20 ml Dose Administration 50 ml .ROUTE .STK-MED ONE Dexamethasone Confirm 02/04/17 11:48 Dexamethasone Administered 02/04/17 11:49 Dose 4 mg .ROUTE .STK-MED ONE Fentanyl Citrate Confirm 02/04/17 11:47 Fentanyl 0.05 Mg/Ml Vial Administered 02/04/17 11:48 Dose 50 mcg .ROUTE .STK-MED ONE Gentamicin Sulfate Confirm 02/04/17 11:25 Gentamicin Administered 02/04/17 11:26 Dose 240 mg .ROUTE .STK-MED ONE Glycopyrrolate Confirm 02/04/17 11:48 Robinul Administered 02/04/17 11:49 Dose 1 mg .ROUTE .STK-MED ONE Sodium Chloride 1,000 mls @ 200 mls/hr 02/04/17 09:00 02/04/17 09:44 Normal Saline IV 200 mls/hr ASDIRECTED NEW Administration Phytonadione 2.5 mg/ Sodium 50.25 mls @ 100 mls/hr 02/04/17 11:00 02/04/17 11 :39 Chloride IV 02/04/17 11:30 100 mls/hr NOW ONE Administration Cefazolin Sodium/Dextrose 2 gm 50 mls @ 100 mls/hr 02/04/17 11:37 02/04/17 16 :40 / Premix IV 02/04/17 12:06 Not Given ONETIME ONE Cefazolin Sodium 2 gm/ Sodium 50 mls @ 100 mls/hr 02/04/17 20:00 Chloride IV 02/05/17 12:29 Q8H NEW Ibuprofen 600 mg 02/04/17 07:37 02/04/17 08:00 Motrin PO 02/04/17 07:38 600 mg ONETIME ONE Administration Morphine Sulfate 2 mg 02/04/17 11:48 Morphine IVPUSH Q2H PRN Pain Neostigmine Methylsulfate Confirm 02/04/17 11:48 Neostigmine Administered 02/04/17 11:49 Dose 5 mg .ROUTE .STK-MED ONE Ondansetron HCl Confirm 02/04/17 11:48 Zofran Administered 02/04/17 11:49 Dose 4 mg .ROUTE .STK-MED ONE Oxycodone/Acetaminophen 1 tab 02/04/17 11:48 Percocet 325-5 Mg PO Q4H PRN Pain Povidone Iodine Confirm 02/04/17 11:26 Betadine 10% Soln Administered 02/04/17 11:27 Dose 1 ml .ROUTE .STK-MED ONE Propofol Confirm 02/04/17 11:48 Diprivan 20 Ml Administered 02/04/17 11:49 Dose 200 mg .ROUTE .STK-MED ONE Rocuronium [place] Confirm 02/04/17 11:48 Zemuron Administered 02/04/17 11:49 Dose 50 mg .ROUTE .STK-MED ONE - Re-Assessments/Exams Free Text/Narrative Re-Assessment/Exam: 02/04/17 08:41 xray revealed a bimolear fracture of the ankle. This will require surgery. 02/04/17 09:14 ekg shows atrial fib which is chronic for her. She is on coumadin therapy with a INR of 1.9. She has a normal looking cbc. 02/04/17 09:16 pt has a bs of 234 Departure - Departure Time of Disposition: 10:35 Disposition: Admitted As Inpatient 67 Condition: Fair Clinical Impression: Closed right ankle fracture Qualifiers: Encounter type: initial encounter Qualified Code(s): S82.891A - Other fracture of right lower leg, initial encounter for closed fracture - Discharge Information - My Orders Last 24 Hours: My Active Orders 02/04/17 08:35 EKG 12 Lead [EK] Routine - Assessment/Plan Last 24 Hours: My Active Orders 02/04/17 08:35 EKG 12 Lead [EK] Routine
[2017-02-04] MEDS ORDERED: Sodium Chloride 0.9% 1,000 ML IV SCH ×2 (09:00→13:16)
--- NOTE | 2017-02-04 10:22 | PCM.CONS ---
H&P History of Present Illness - General Date of Service: 02/04/17 Source of Information: Patient, Provider History Limitations: Reports: Altered Mental Status - History of Present Illness Initial Comments - Free Text/Narative: Olive is a pleasant 71-year-old female who comes in today due to a recent fall. She states she went to the bathroom and slipped and fell noting pain in her right ankle. She then reported to the emergency department. Location: Reports: Lower Extremity, Right Quality: Reports: Ache Severity: Moderate Right Ankle Pain Score (Numeric/FACES): 3 - Related Data Allergies/Adverse Reactions: Allergies Allergy/AdvReac Type Severity Reaction Status Date / Time Ogbznxa-Dcg-Gku Reductase AdvReac Muscle Verified 02/04/17 06:56 Inhibitor Aches Home Medications: Home Meds Aspirin [Leigha Chewable Aspirin] 81 mg PO DAILY 09/04/13 [History] Furosemide [Lasix] 40 mg PO DAILY 09/04/13 [History] Lisinopril [Prinivil] 5 mg PO DAILY 09/04/13 [History] Warfarin [Coumadin] 5 mg PO SUTUWETHSA 09/04/13 [History] Carvedilol 6.25 mg PO BID 10/17/14 [History] Warfarin [Coumadin] 6 mg PO MOFR 10/17/14 [History] levETIRAcetam [Levetiracetam] 1,500 mg PO BID 10/17/14 [History] metFORMIN [Glucophage XR] 1,000 mg PO BIDMEALS 10/17/14 [History] Acetaminophen [Tylenol] 650 mg PO ASDIRECTED PRN 05/23/16 [History] Bacitracin/Neomycin/Polymyxin [Neosporin Oint] 1 applic TOP ASDIRECTED PRN 05/24 [History] Calcium Carbonate [Tums] 2 tab PO ASDIRECTED PRN 05/24/16 [History] guaiFENesin [Robitussin] 10 ml PO ASDIRECTED PRN 05/24/16 [History] glipiZIDE [Glucotrol] 5 mg PO BID 11/06/16 [History] Clopidogrel [Plavix] 1 tab PO DAILY 02/04/17 [History] Hydrocortisone [Hydrocortisone 1% Crm] 1 dose TOP ASDIRECTED 02/04/17 [History] Loperamide [Imodium] 2 cap PO ASDIRECTED PRN 02/04/17 [History] Magnesium Hydroxide [Milk of Magnesia] 30 ml PO ASDIRECTED 02/04/17 [History] Menthol/Methyl Salicylate [Icy Hot] 1 dose TOP ASDIRECTED PRN 02/04/17 [History] Phenol [Cepastat] 1 dose PO ASDIRECTED 02/04/17 [History] atorvaSTATin Calcium [Atorvastatin Calcium] 1 tab PO DAILY 02/04/17 [History] diphenhydrAMINE [Benadryl] 1 tab PO Q4H PRN 02/04/17 [History] Past Medical History HEENT History: Reports: Impaired Vision Cardiovascular History: Reports: Afib, Bypass, CAD, Hypertension, [place], Stents, Other (See Below) Other Cardiovascular History: Edema Gastrointestinal History: Reports: Chronic Constipation, GI Bleed Genitourinary History: Reports: Urinary Incontinence Neurological History: Reports: Neuropathy, Peripheral, Seizure, Other (See Below ) Other Neuro History: static encephalopathy Psychiatric History: Reports: Anxiety, Other (See Below) Other Psychiatric History: mental disability. Endocrine/Metabolic History: Reports: Diabetes, Type II, Obesity/BMI 30+ Dermatologic History: Reports: Other (See Below) Other Dermatologic History: actinic keratosis, seorrheic keratosis - Infectious Disease History Infectious Disease History: Reports: Measles Other Infectious Disease History: unknown - Past Surgical History Cardiovascular Surgical History: Reports: Coronary Artery Bypass, Coronary Artery Stent Social & Family History - Tobacco Use Smoking Status *Q: Never Smoker Second Hand Smoke Exposure: No - Caffeine Use Caffeine Use: Reports: Coffee - Alcohol Use Days Per Week of Alcohol Use: 0 - Recreational Drug Use Recreational Drug Use: No H&P Review of Systems - Review of Systems: Review Of Systems: See Below Musculoskeletal: Reports: Leg Pain (right ankle pain) Skin: Reports: No Symptoms Exam - Exam Exam: See Below - Vital Signs Vital Signs: Last Vital Signs Temp 36.3 C 02/04/17 09:15 Pulse 105 H 02/04/17 09:15 Resp 18 02/04/17 09:15 BP 156/78 H 02/04/17 09:15 Pulse Ox 95 02/04/17 09:15 Weight: 161 lb - Exam General: Alert Extremities: Joint Swelling, Limited Range of Motion (right ankle) Skin: Warm, Intact Neuro Extensive - Mental Status: Alert - Patient Data Lab Results Last 24 hrs: Laboratory Results - last 24 hr 02/04/17 02/04/17 02/04/17 Range/Units 08:33 08:34 08:34 WBC 11.6 H (4.5-11.0) K/uL RBC 4.52 (3.30-5.50) M/uL Hgb 12.9 D (12.0-15.0) g/dL Hct 39.3 (36.0-48.0) % MCV 87 (80-98) fL MCH 29 (27-31) pg MCHC 33 (32-36) % Plt Count 266 (150-400) K/uL Neut % (Auto) 85 H (36-66) % Lymph % (Auto) 10 L (24-44) % [place] % (Auto) 4 (2-6) % Eos % (Auto) 1 L (2-4) % Baso % (Auto) 0 (0-1) % PT 20.9 H (9.5-12.0) sec INR 1.90 H (0.80-1.20) Sodium 136 L (140-148) mmol/L Potassium 3.8 (3.6-5.2) mmol/L Chloride 99 L (100-108) mmol/L Carbon Dioxide 28 (21-32) mmol/L Anion Gap 12.8 (5.0-14.0) mmol/L BUN 17 D (7-18) mg/dL Creatinine 1.0 (0.6-1.0) mg/dL Est Cr Clr Drug Dosing 43.30 mL/min Estimated GFR (MDRD) 55 L (>60) Glucose 234 H (74-106) mg/dL Calcium 8.7 D (8.5-10.1) mg/dL Total Bilirubin 0.5 D (0.2-1.0) mg/dL AST 19 (15-37) U/L ALT 21 (12-78) U/L Alkaline Phosphatase 65 (46-116) U/L Gei-I-Rbqfuzkkxks Pept (5-125) pg/mL Total Protein 7.8 (6.4-8.2) g/dL Albumin 3.2 L (3.4-5.0) g/dL Globulin 4.6 H (2.3-3.5) g/dL Albumin/Globulin Ratio 0.7 L (1.2-2.2) 02/04/17 Range/Units 08:40 WBC (4.5-11.0) K/uL RBC (3.30-5.50) M/uL Hgb (12.0-15.0) g/dL Hct (36.0-48.0) % MCV (80-98) fL MCH (27-31) pg MCHC (32-36) % Plt Count (150-400) K/uL Neut % (Auto) (36-66) % Lymph % (Auto) (24-44) % [place] % (Auto) (2-6) % Eos % (Auto) (2-4) % Baso % (Auto) (0-1) % PT (9.5-12.0) sec INR (0.80-1.20) Sodium (140-148) mmol/L Potassium (3.6-5.2) mmol/L Chloride (100-108) mmol/L Carbon Dioxide (21-32) mmol/L Anion Gap (5.0-14.0) mmol/L BUN (7-18) mg/dL Creatinine (0.6-1.0) mg/dL Est Cr Clr Drug Dosing mL/min Estimated GFR (MDRD) (>60) Glucose (74-106) mg/dL Calcium (8.5-10.1) mg/dL Total Bilirubin (0.2-1.0) mg/dL AST (15-37) U/L ALT (12-78) U/L Alkaline Phosphatase (46-116) U/L Dbv-S-Yqopmpyahnv Pept 958 H (5-125) pg/mL Total Protein (6.4-8.2) g/dL Albumin (3.4-5.0) g/dL Globulin (2.3-3.5) g/dL Albumin/Globulin Ratio (1.2-2.2) Result Diagrams: 02/04/17 08:34 02/04/17 08:34 Consult PN Assessment/Plan POD#: 0 Procedures: Procedures AIRWAY INHALATION TREATMENT (05/24/16) ASSAY OF BLOOD/URIC ACID (10/17/14) ASSAY OF DIGOXIN TOTAL (05/24/16) ASSAY OF FERRITIN (11/10/16) ASSAY OF LACTIC ACID (11/10/16) ASSAY OF MAGNESIUM (11/10/16) ASSAY OF TROPONIN QUANT (11/10/16) BLOOD CULTURE FOR BACTERIA (05/24/16) BLOOD GASES ANY COMBINATION (05/24/16) C-REACTIVE PROTEIN (10/17/14) CARDIAC REHAB/MONITOR (12/03/16) CHEST X-RAY 1 VIEW FRONTAL (11/10/16) CHEST X-RAY 2VW FRONTAL&LATL (05/24/16) COMP SCREEN MAMMOGRAM ADD-ON (01/17/15) COMPLETE CBC AUTOMATED (11/10/16) COMPLETE CBC W/AUTO DIFF WBC (11/10/16) COMPREHEN METABOLIC PANEL (11/10/16) DIAGNOSTIC COLONOSCOPY (11/10/16) ELECTROCARDIOGRAM TRACING (11/10/16) EMERGENCY DEPT VISIT (05/24/16) EMERGENCY DEPT VISIT (10/17/14) GLUCOSE BLOOD TEST (05/24/16) HYDRATE IV INFUSION ADD-ON (05/24/16) INFLUENZA ASSAY W/OPTIC (05/24/16) METABOLIC PANEL TOTAL CA (11/10/16) NEEDLE BIOPSY OF LIVER (11/10/16) POS AIRWAY PRESSURE CPAP (05/24/16) PROTHROMBIN TIME (11/10/16) PT EVALUATION (05/24/16) RHEUMATOID FACTOR QUANT (10/17/14) ROUTINE VENIPUNCTURE (11/10/16) THER/PROPH/DIAG INJ IV PUSH (05/24/16) THERAPEUTIC ACTIVITIES (05/24/16) THERAPEUTIC EXERCISES (05/24/16) THROMBOPLASTIN TIME PARTIAL (11/10/16) TX/PRO/DX INJ NEW DRUG ADDON (05/24/16) URINALYSIS AUTO W/SCOPE (11/10/16) WITHDRAWAL OF ARTERIAL BLOOD (05/24/16) X-RAY EXAM OF FOOT (10/17/14) Problem List Initiated/Reviewed/Updated: Yes Plan: At this time Olive has a displaced right ankle fracture. We will plan to do surgery today at 11. She will continue to remain nothing by mouth at this time.
--- NOTE | 2017-02-04 11:02 | PCM.HP ---
H&P History of Present Illness - General Date of Service: 02/04/17 Admit Problem/Dx: Admission Diagnosis/Problem Admission Diagnosis/Problem Ankle fracture Source of Information: Patient, Family, Provider History Limitations: Reports: No Limitations - History of Present Illness Initial Comments - Free Text/Narative: Olive presents to the emergency room today with right ankle pain. She reports that she slipped in the bathroom this morning and fell striking her foot against the floor. She had immediate severe sharp pain in her right ankle. She was unable to move her right foot. The pain radiated up her right leg to about mid [place]. She did not take anything to help with her pain prior to coming to the emergency room. Any sort of movement makes the pain worse. She has never had pain this severe before. She had been feeling well prior to onset of symptoms. No recent fevers, cough, shortness of breath. No recent issues with chest pain. No bleeding issues with her warfarin therapy. No previous difficulties with anesthesia. Workup in the emergency room revealed a bimalleolar fracture of the right ankle. She'll be admitted for surgical management. Right Ankle Pain Score (Numeric/FACES): 3 - Related Data Allergies/Adverse Reactions: Allergies Allergy/AdvReac Type Severity Reaction Status Date / Time [id number]-Hvk Reductase AdvReac Muscle Verified 02/04/17 06:56 Inhibitor Aches Home Medications: Home Meds Aspirin [Leigha Chewable Aspirin] 81 mg PO DAILY 09/04/13 [History] Furosemide [Lasix] 40 mg PO DAILY 09/04/13 [History] Lisinopril [Prinivil] 5 mg PO DAILY 09/04/13 [History] Warfarin [Coumadin] 5 mg PO SUTUWETHSA 09/04/13 [History] Carvedilol 6.25 mg PO BID 10/17/14 [History] Warfarin [Coumadin] 6 mg PO MOFR 10/17/14 [History] levETIRAcetam [Levetiracetam] 1,500 mg PO BID 10/17/14 [History] metFORMIN [Glucophage XR] 1,000 mg PO BIDMEALS 10/17/14 [History] Acetaminophen [Tylenol] 650 mg PO ASDIRECTED PRN 05/23/16 [History] Bacitracin/Neomycin/Polymyxin [Neosporin Oint] 1 applic TOP ASDIRECTED PRN 05/24 [History] Calcium Carbonate [Tums] 2 tab PO ASDIRECTED PRN 05/24/16 [History] guaiFENesin [Robitussin] 10 ml PO ASDIRECTED PRN 05/24/16 [History] glipiZIDE [Glucotrol] 5 mg PO BID 11/06/16 [History] Clopidogrel [Plavix] 1 tab PO DAILY 02/04/17 [History] Hydrocortisone [Hydrocortisone 1% Crm] 1 dose TOP ASDIRECTED 02/04/17 [History] Loperamide [Imodium] 2 cap PO ASDIRECTED PRN 02/04/17 [History] Magnesium Hydroxide [Milk of Magnesia] 30 ml PO ASDIRECTED 02/04/17 [History] Menthol/Methyl Salicylate [Icy Hot] 1 dose TOP ASDIRECTED PRN 02/04/17 [History] Phenol [Cepastat] 1 dose PO ASDIRECTED 02/04/17 [History] atorvaSTATin Calcium [Atorvastatin Calcium] 1 tab PO DAILY 02/04/17 [History] diphenhydrAMINE [Benadryl] 1 tab PO Q4H PRN 02/04/17 [History] Past Medical History HEENT History: Reports: Impaired Vision Cardiovascular History: Reports: Afib, Bypass, CAD, Hypertension, CO, Stents, Other (See Below) Other Cardiovascular History: Edema Gastrointestinal History: Reports: Chronic Constipation, GI Bleed Genitourinary History: Reports: Urinary Incontinence Neurological History: Reports: Neuropathy, Peripheral, Seizure, Other (See Below ) Other Neuro History: static encephalopathy Psychiatric History: Reports: Anxiety, Other (See Below) Other Psychiatric History: mental disability. Endocrine/Metabolic History: Reports: Diabetes, Type II, Obesity/BMI 30+ Dermatologic History: Reports: Other (See Below) Other Dermatologic History: actinic keratosis, seorrheic keratosis - Infectious Disease History Infectious Disease History: Reports: Measles Other Infectious Disease History: unknown - Past Surgical History Cardiovascular Surgical History: Reports: Coronary Artery Bypass, Coronary Artery Stent Social & Family History - Family History Cardiac: Denies: CAD - Tobacco Use Smoking Status *Q: Never Smoker Second Hand Smoke Exposure: No - Caffeine Use Caffeine Use: Reports: Coffee - Alcohol Use Days Per Week of Alcohol Use: 0 - Recreational Drug Use Recreational Drug Use: No H&P Review of Systems - Review of Systems: Review Of Systems: See Below Free Text/Narrative: A complete 12 point review of systems was obtained. Pertinent positives and negatives are noted in the history of present illness. All other systems were reviewed and were negative except as noted. Exam - Exam Exam: See Below - Vital Signs Vital Signs: Last Vital Signs Temp 36.3 C 02/04/17 09:15 Pulse 105 H 02/04/17 09:15 Resp 18 02/04/17 09:15 BP 156/78 H 02/04/17 09:15 Pulse Ox 95 02/04/17 09:15 Weight: 73.028 kg - Exam Quality Assessment: Supplemental Oxygen General: Alert, Oriented, Cooperative. No: Mild Distress HEENT: Conjunctiva Clear, Mucosa Moist & [place]. No: Scleral Icterus Neck: Supple, Trachea Midline. No: Lymphadenopathy Lungs: Clear to Auscultation, Normal Respiratory Effort Cardiovascular: Regular Rate, Irregular Rhythm. No: Systolic Murmur GI/Abdominal Exam: Normal Bowel Sounds, Soft, Non-Tender, No Distention Back Exam: Normal Inspection, Full Range of Motion Extremities: Pedal Edema (moderate right ankle swelling ). No: Increased Warmth Peripheral Pulses: 2+: Dorsalis Pedis (L), Dorsalis Pedis (R) Skin: Warm, Dry, Intact. No: Rash, Ecchymosis Neuro Extensive - Mental Status: Alert, Oriented x3, Nl Response to Commands Neuro Extensive - Motor, Sensory, Reflexes: CN II-XII Intact. No: Dysarthria, Abnormal Motor, Tremor Psychiatric: Alert, Normal Affect - Patient Data Lab Results Last 24 hrs: Laboratory Results - last 24 hr 02/04/17 02/04/17 02/04/17 Range/Units 08:33 08:34 08:34 WBC 11.6 H (4.5-11.0) K/uL RBC 4.52 (3.30-5.50) M/uL Hgb 12.9 D (12.0-15.0) g/dL Hct 39.3 (36.0-48.0) % MCV 87 (80-98) fL MCH 29 (27-31) pg MCHC 33 (32-36) % Plt Count 266 (150-400) K/uL Neut % (Auto) 85 H (36-66) % Lymph % (Auto) 10 L (24-44) % [place] % (Auto) 4 (2-6) % Eos % (Auto) 1 L (2-4) % Baso % (Auto) 0 (0-1) % PT 20.9 H (9.5-12.0) sec INR 1.90 H (0.80-1.20) Sodium 136 L (140-148) mmol/L Potassium 3.8 (3.6-5.2) mmol/L Chloride 99 L (100-108) mmol/L Carbon Dioxide 28 (21-32) mmol/L Anion Gap 12.8 (5.0-14.0) mmol/L BUN 17 D (7-18) mg/dL Creatinine 1.0 (0.6-1.0) mg/dL Est Cr Clr Drug Dosing 43.30 mL/min Estimated GFR (MDRD) 55 L (>60) Glucose 234 H (74-106) mg/dL Calcium 8.7 D (8.5-10.1) mg/dL Total Bilirubin 0.5 D (0.2-1.0) mg/dL AST 19 (15-37) U/L ALT 21 (12-78) U/L Alkaline Phosphatase 65 (46-116) U/L Zot-P-Qgxjlugofzo Pept (5-125) pg/mL Total Protein 7.8 (6.4-8.2) g/dL Albumin 3.2 L (3.4-5.0) g/dL Globulin 4.6 H (2.3-3.5) g/dL Albumin/Globulin Ratio 0.7 L (1.2-2.2) 02/04/17 Range/Units 08:40 WBC (4.5-11.0) K/uL RBC (3.30-5.50) M/uL Hgb (12.0-15.0) g/dL Hct (36.0-48.0) % MCV (80-98) fL MCH (27-31) pg MCHC (32-36) % Plt Count (150-400) K/uL Neut % (Auto) (36-66) % Lymph % (Auto) (24-44) % [place] % (Auto) (2-6) % Eos % (Auto) (2-4) % Baso % (Auto) (0-1) % PT (9.5-12.0) sec INR (0.80-1.20) Sodium (140-148) mmol/L Potassium (3.6-5.2) mmol/L Chloride (100-108) mmol/L Carbon Dioxide (21-32) mmol/L Anion Gap (5.0-14.0) mmol/L BUN (7-18) mg/dL Creatinine (0.6-1.0) mg/dL Est Cr Clr Drug Dosing mL/min Estimated GFR (MDRD) (>60) Glucose (74-106) mg/dL Calcium (8.5-10.1) mg/dL Total Bilirubin (0.2-1.0) mg/dL AST (15-37) U/L ALT (12-78) U/L Alkaline Phosphatase (46-116) U/L Nzu-W-Ierodubkvnj Pept 958 H (5-125) pg/mL Total Protein (6.4-8.2) g/dL Albumin (3.4-5.0) g/dL Globulin (2.3-3.5) g/dL Albumin/Globulin Ratio (1.2-2.2) Result Diagrams: 02/04/17 08:34 02/04/17 08:34 Imaging Impressions Last 24 hrs: Chest x-ray - images personally reviewed - cardiomegaly but otherwise clear with no infiltrate, mass or effusion X-ray right ankle - images personally reviewed - there is a bimalleolar ankle fracture with moderate displacement EKG INTERPRETATION EKG Date: 02/04/17 Rhythm: A-Fib Rate (Beats/Min): 96 [place]: Normal P-Wave: Variable QRS: Normal ST-T: Normal QT: Normal *Q Meaningful Use (ADM) - VTE *Q VTE Criteria *Q: VTE Pharmacological Contraindications *Q: Patient Scheduled Surgery - VTE Risk Assess *Q Each Risk Factor Represents 1 Point: Minor Surgery Planned Total Score 1 Point Risk Factors: 1 Each Risk Factor Represents 2 Points: Age 60 - 74 Years Total Score 2 Point Risk Factors: 2 Each Risk Factor Represents 3 Points: None Total Score 3 Point Risk Factors: 0 Each Risk Factor Represents 5 Points: None Total Score 5 Point Risk Factors: 0 Venous Thromboembolism Risk Factor Score *Q: 3 - Stroke *Q Stroke Criteria *Q: - AMI *Q AMI Criteria *Q: - Problem List (1) Closed right ankle fracture SNOMED Code(s): 62670189 ICD Code: S82.891A - OTH FRACTURE OF RIGHT LOWER LEG, INIT FOR CLOS FX Status: Acute Current Visit: Yes Qualifiers: Encounter type: initial encounter Qualified Code(s): S82.891A - Other fracture of right lower leg, initial encounter for closed fracture (2) Coronary artery disease SNOMED Code(s): 60139257 ICD Code: I25.10 - ATHSCL HEART DISEASE OF [place] CORONARY ARTERY W/O ANG PCTRS Status: Acute Current Visit: Yes Qualifiers: Coronary Disease-Associated Artery/Lesion type: [place] artery [place] vs. transplanted heart: [place] heart Associated angina: without angina Qualified Code(s): I25.10 - Atherosclerotic heart disease of [place] coronary artery without angina pectoris (3) Chronic atrial fibrillation SNOMED Code(s): 221675984 ICD Code: I48.2 - CHRONIC ATRIAL FIBRILLATION Status: Chronic Current Visit: Yes Problem Details: Chronically anticoagulated (4) Diabetes mellitus type II, controlled SNOMED Code(s): 87876097 ICD Code: E11.9 - TYPE 2 DIABETES MELLITUS WITHOUT COMPLICATIONS Status: Chronic Current Visit: No Qualifiers: Diabetes mellitus complication status: with unspecified complications Diabetes mellitus custodial insulin use: without custodial use Qualified Code( s): E11.8 - Type 2 diabetes mellitus with unspecified complications Problem List Initiated/Reviewed/Updated: Yes Orders Last 24hrs: Active Orders 24 hr Category Date Time Status Patient Status Manage Transfer [TRANSFER] Routine ADT 02/04/17 10:45 Ordered EKG Documentation Completion [RC] ASDIRECTED Care 02/04/17 08:35 Active Ankle Min 3V Rt [CR] Stat Exams 02/04/17 07:37 Taken Chest 1V Frontal [CR] Stat Exams 02/04/17 08:34 Taken Fluoro Up To 1Hr [CR] Routine Exams 02/04/17 11:45 Ordered UA W/MICROSCOPIC [URIN] Urgent Lab 02/04/17 08:53 Uncollected Phytonadione [AquaMephyton] 2.5 mg Med 02/04/17 10:43 Active Sodium Chloride 0.9% [Normal Saline] 50 ml IV NOW Sodium Chloride 0.9% [Normal Saline] 1,000 ml Med 02/04/17 09:00 Active IV ASDIRECTED Resuscitation Status Routine Resus Stat 02/04/17 10:48 Ordered EKG 12 Lead [EK] Routine Ther 02/04/17 08:35 Ordered Medication Orders Sodium Chloride (Normal Saline) 1,000 mls @ 200 mls/hr IV ASDIRECTED [facility] Last Admin: 02/04/17 09:44 Dose: 200 mls/hr Phytonadione 2.5 mg/ Sodium (Chloride) 50.25 mls @ 100 mls/hr IV NOW ONE Stop: 02/04/17 11:13 Assessment/Plan Comment:: Assessment and plan - Right bimalleolar ankle fracture, closed - traumatic fracture following a fall. Patient is approximately 2 months out from a non-ST elevation myocardial infarction but clinically is doing quite well. Good functional status and no recent issues with chest pain. No recent concerns for infection. Her INR is 1.9 and she will be receiving some vitamin K. Other than the anticoagulation I believe that she is medically optimized for surgery and there are no obvious contraindications to proceeding. -Vitamin K 2.5 mg now -Pain control -Orthopedic consultation for surgical intervention Coronary artery disease - she is about 2 months out from a non-ST elevation myocardial infarction. Clinically doing well with no anginal symptoms. Tolerating medical management. Vital signs are stable at this point. No ischemic changes on the EKG. -Continue medical management including aspirin and clopidogrel Chronic atrial fibrillation - acceptable rate control at this time. She is anticoagulated and INR is slightly subtherapeutic. -Vitamin K as above -Continue rate control -Restart warfarin tomorrow -daily INR Type 2 diabetes mellitus - Usual medications will be continued. Maintenance issues - - DVT prophylaxis - warfarin will be reinitiated tomorrow, may need DVT dosing for enoxaparin starting tomorrow - GI prophylaxis - not indicated - Nutrition - nothing by mouth until after surgery - Mont[place] catheter - not indicated CODE STATUS - full code Admission justification - This patient will be admitted for inpatient services and is medically appropriate meeting medical necessity for inpatient admission as outlined in my documentation. I reasonably expect the patient will require inpatient services that span a period time over 2 midnights. I reasonably expect this patient to be discharged or transferred within 96 hours [facility] Disposition - anticipate discharge to assisted living versus possibly the long term after the hospital stay Primary care physician - Dr Miguel Grayson M.D.
--- NOTE | 2017-02-04 11:23 | CR ---
Cardiomegaly. Sternotomy. Low lung volumes. Nodular density right hilum may indicate normal vascular ity but would recommend nonemergent noncontrast CT follow-up to exclude a pulmonary nodule or lympha denopathy.
[2017-02-04] MEDS ORDERED: Gentamicin 40 MG/ML 2 ML Vial ONE (11:25)
[2017-02-04] MEDS ORDERED: Bupivacaine 0.5% 50 ML MDV ONE (11:25)
--- NOTE | 2017-02-04 11:25 | CR ---
Fracture of the distal fibula with displacement of the distal fibula laterally. Lateral angulation a t the ankle joint. Displaced medial malleolar fracture. Hypertrophic change at the anterior ankle talha int tiny avulsion fragments would be difficult to exclude. Calcaneal heel spur and enthesophyte.
[2017-02-04] MEDS ORDERED: Povidone-Iodine 10% Soln 118.25 ML Bottle ONE (11:26)
[2017-02-04] MEDS ORDERED: ceFAZolin 2 GM in Premix Bag 1 BAG IV ONE (11:37)
[2017-02-04] MEDS ORDERED: Propofol 200 MG/20 ML SDV ONE (11:48)
[2017-02-04] MEDS ORDERED: Morphine 2 MG/ML Syringe IVPUSH PRN ×2 (11:48→13:16)
[2017-02-04] MEDS ORDERED: Acetaminophen/oxyCODONE 325-5 MG Tab PO PRN (11:48)
[2017-02-04] MEDS ORDERED: Neostigmine Methylsulfate 1 MG/ML 5 ML Syringe ONE (11:48)
[2017-02-04] MEDS ORDERED: Glycopyrrolate 0.2 MG/ML 5 ML MDV ONE (11:48)
[2017-02-04] MEDS ORDERED: Rocuronium 50 MG/5 ML Vial ONE (11:48)
[2017-02-04] MEDS ORDERED: traMADol 50 MG Tab PO PRN (11:48)
[2017-02-04] MEDS ORDERED: Ondansetron 4 MG/2 ML SDV ONE (11:48)
[2017-02-04] MEDS ORDERED: Dexamethasone 4 MG/ML SDV ONE (11:48)
[2017-02-04] MEDS ORDERED: Ondansetron 4 MG Tab.DIS PO PRN (13:16)
[2017-02-04] MEDS ORDERED: Acetaminophen 325 MG Tab PO PRN (13:16)
[2017-02-04] MEDS ORDERED: diphenhydrAMINE 25 MG Cap PO PRN (13:16)
[2017-02-04] MEDS ORDERED: oxyCODONE 5 MG Tab PO PRN (13:16)
--- NOTE | 2017-02-04 14:46 | OR ---
DATE OF PROCEDURE: 02/04/2017 PREOPERATIVE DIAGNOSIS: Right ankle bimalleolar fracture, displaced, closed. POSTOPERATIVE DIAGNOSIS: Right ankle bimalleolar fracture, displaced, closed. PROCEDURE: Right ankle bimalleolar fracture closed reduction under anesthesia and short-leg splint placement. INFORMATION SPECIALIST: JOAQUINA Almeida. ANESTHESIA: Conscious sedation. FLUID: Lactated Ringer solution. ESTIMATED BLOOD LOSS: Zero. COMPLICATIONS: None. SPECIMEN: None. DISCHARGE DISPOSITION: Stable to PACU. INDICATIONS FOR THE PROCEDURE: The patient was at a [facility], she fell there, was taken to the emergency department where she was found to have a right bimalleolar fracture. We were then consulted. I spoke with her caregiver who was on the phone with the power of commercial real estate attorney. Risks and benefits of the procedure were explained and informed consent was obtained for open reduction, internal fixation. DETAILS OF PROCEDURE: The patient was seen preoperatively in the hospital bed. She was taken to the operative suite by Anesthesia staff. Before anesthesia had been administered, we noticed that she was tachycardic in the 130s. She has a history of atrial fibrillation. Therefore, we decided to do only a closed reduction instead of open reduction and internal fixation. Time-out was called identifying the correct patient, correct procedure, the correct site, and antibiotics given with appropriate time. The right ankle was reduced, a short-leg splint was placed. After the splint dried, she was allowed to awaken and taken to the PACU in stable condition. Benoit Schwartz DO /[id number]
[2017-02-04] MEDS: metFORMIN 500 MG Tab.ER PO SCH (17:17)
[2017-02-04] MEDS ORDERED: ceFAZolin 2 GM in Sodium Chloride 0.9% 50 ML IV SCH (20:00)
[2017-02-04] MEDS ORDERED: atorvaSTATin 20 MG Tab PO SCH (21:00)
[2017-02-04] MEDS ORDERED: Carvedilol 12.5 MG Tab PO SCH (21:00)
[2017-02-04] MEDS ORDERED: ATORVASTATIN CALCIUM PO SCH (21:00)
[2017-02-04] MEDS ORDERED: LEVETIRACETAM 1500 MG PO SCH (21:00)
[2017-02-04] MEDS: Carvedilol 6.25 MG Tab PO SCH (21:20)
[2017-02-04] MEDS: glipiZIDE 5 MG Tab PO SCH (21:20)
[2017-02-04] MEDS: levETIRAcetam 250 MG Tab PO SCH (21:21)
[2017-02-05] MEDS: metFORMIN 500 MG Tab.ER PO SCH (07:43)
[2017-02-05] MEDS ORDERED: Clopidogrel 75 MG Tab PO SCH (09:00)
[2017-02-05] MEDS ORDERED: Furosemide 20 MG Tab PO SCH (09:00)
[2017-02-05] MEDS ORDERED: Lisinopril 10 MG Tab PO SCH (09:00)
[2017-02-05] MEDS ORDERED: Furosemide 40 MG Tab PO SCH (09:00)
[2017-02-05] MEDS ORDERED: Aspirin 81 MG Tab.Chew PO SCH (09:00)
[2017-02-05] MEDS ORDERED: Lisinopril 5 MG Tab PO SCH (09:00)
[2017-02-05] MEDS: glipiZIDE 5 MG Tab PO SCH (09:20)
[2017-02-05] MEDS: Carvedilol 6.25 MG Tab PO SCH (09:21)
[2017-02-05] MEDS: levETIRAcetam 250 MG Tab PO SCH (09:30)
[2017-02-05 10:46] VITALS: BP 158/97
[2017-02-05] MEDS ORDERED: Carvedilol 6.25 MG Tab PO ONE (11:22)
--- NOTE | 2017-02-05 12:47 | PCM.DCSUM1 ---
Discharge Summary - Hospital Course Brief History: 71-year-old female with history of coronary artery disease and chronic atrial fibrillation who presented with right ankle pain after a fall in the bathroom. She was admitted for surgical management of the fracture. - Discharge Data Discharge Date: 02/05/17 Discharge Disposition: Home, Self-Care 01 Condition: Good - Discharge Diagnosis/Problem(s) (1) Closed right ankle fracture SNOMED Code(s): 02468089 ICD Code: S82.891A - OTH FRACTURE OF RIGHT LOWER LEG, INIT FOR CLOS FX Status: Acute Qualifiers: Encounter type: initial encounter Qualified Code(s): S82.891A - Other fracture of right lower leg, initial encounter for closed fracture (2) Coronary artery disease SNOMED Code(s): 89351593 ICD Code: I25.10 - ATHSCL HEART DISEASE OF [place] CORONARY ARTERY W/O ANG PCTRS Status: Acute Qualifiers: Coronary Disease-Associated Artery/Lesion type: [place] artery [place] vs. transplanted heart: [place] heart Associated angina: without angina Qualified Code(s): I25.10 - Atherosclerotic heart disease of [place] coronary artery without angina pectoris (3) Chronic atrial fibrillation SNOMED Code(s): 349244858 ICD Code: I48.2 - CHRONIC ATRIAL FIBRILLATION Status: Chronic Problem Details: Chronically anticoagulated (4) Diabetes mellitus type II, controlled SNOMED Code(s): 10443717 ICD Code: E11.9 - TYPE 2 DIABETES MELLITUS WITHOUT COMPLICATIONS Status: Chronic Qualifiers: Diabetes mellitus complication status: with unspecified complications Diabetes mellitus correction insulin use: without termite treater helper use Qualified Code( s): E11.8 - Type 2 diabetes mellitus with unspecified complications - Patient Summary/Data Consults: Dr. Schwartz with orthopedic surgery Hospital Course: Olive presented to the emergency room with right ankle pain after falling in the bathroom. X-rays suggested bimalleolar fracture of the right ankle and she was admitted to the hospital with the plan for surgical intervention. Unfortunately when she went down to have the operation performed her heart rate jumped up into the 120s. The operating team elected to avoid the procedure given her tachycardia. They did perform a closed reduction of the fracture and she is now in a splint. Her pain has been well-controlled overnight. Heart rate was stable overnight but has risen some this morning. We did discover that are prior to admission dose of carvedilol was less than what she was on as an outpatient. The plan is for surgical intervention after one week of rest to allow the swelling to go down. We did reverse her INR at the time of admission and will not restart her warfarin until after her surgery next week. She will stay on her aspirin and clopidogrel. She'll be discharged to her assisted- living facility today with home health care using the transition. She will be returning next week to have surgery on February 10. - Patient Instructions Diet: Diabetic Diet Activity: As Tolerated, Non Weight Bearing (do not put any weight on your right leg ) Showering/Bathing: May Shower Notify Provider of: Fever, Increased Pain, Nausea and/or Vomiting Other/Special Instructions: 1. You were in the hospital for management of a right ankle fracture. You had a closed reduction and a splint placed. Surgical management is planned for next Wednesday. You will be seeing Dr. Schwartz for surgery, probably around 9 AM. You should take 1000 mg of acetaminophen 3 times a day to help with the mild pain. You will have oxycodone available for severe breakthrough pain. 2. Because you will be having surgery next week you should not take your warfarin until after the surgery is complete. You should continue to take both aspirin and clopidogrel. 3. You should be nothing by mouth after midnight on Wednesday night with the plan to have surgical intervention on Wednesday morning. 4. Please restart warfarin and regular INR monitoring the day after surgery. 5. I have placed a referral to home health care to provide physical and occupational therapy. They will help to ease your transition home from the hospital. 6. Please seek medical attention if you have fever greater than 101, have severe pain that is not controlled with the above medications or you develop persistent vomiting or severe diarrhea. - Discharge Plan Prescriptions/Med Rec: Acetaminophen [Acetaminophen Extra Strength] 1,000 mg PO TID #90 tablet traMADol [Ultram] 100 mg PO Q4H PRN #100 tablet PRN Reason: Pain Home Medications: Home Meds Aspirin [Leigha Chewable Aspirin] 81 mg PO DAILY 09/04/13 [History] Furosemide [Lasix] 40 mg PO DAILY 09/04/13 [History] Lisinopril [Prinivil] 5 mg PO DAILY 09/04/13 [History] Warfarin [Coumadin] 5 mg PO SUTUWETHSA 09/04/13 [History] Warfarin [Coumadin] 6 mg PO MOFR 10/17/14 [History] levETIRAcetam [Levetiracetam] 1,500 mg PO BID 10/17/14 [History] metFORMIN [Glucophage XR] 1,000 mg PO BIDMEALS 10/17/14 [History] Bacitracin/Neomycin/Polymyxin [Neosporin Oint] 1 applic TOP ASDIRECTED PRN 05/24 [History] Calcium Carbonate [Tums] 2 tab PO ASDIRECTED PRN 05/24/16 [History] guaiFENesin [Robitussin] 10 ml PO ASDIRECTED PRN 05/24/16 [History] glipiZIDE [Glucotrol] 5 mg PO BID 11/06/16 [History] Clopidogrel [Plavix] 1 tab PO DAILY 02/04/17 [History] Hydrocortisone [Hydrocortisone 1% Crm] 1 dose TOP ASDIRECTED 02/04/17 [History] Loperamide [Imodium] 2 cap PO ASDIRECTED PRN 02/04/17 [History] Magnesium Hydroxide [Milk of Magnesia] 30 ml PO ASDIRECTED 02/04/17 [History] Menthol/Methyl Salicylate [Icy Hot] 1 dose TOP ASDIRECTED PRN 02/04/17 [History] Phenol [Cepastat] 1 dose PO ASDIRECTED 02/04/17 [History] atorvaSTATin Calcium [Atorvastatin Calcium] 1 tab PO DAILY 02/04/17 [History] diphenhydrAMINE [Benadryl] 1 tab PO Q4H PRN 02/04/17 [History] Acetaminophen [Acetaminophen Extra Strength] 1,000 mg PO TID #90 tablet [Rx] Carvedilol [Coreg] 25 mg PO BID 02/05/17 [History] traMADol [Ultram] 100 mg PO Q4H PRN #100 tablet 02/05/17 [Rx] Patient Handouts: Ankle Fracture Forms: ED Department Discharge Referrals: Lee Rivera MD [Primary Care Provider] - (f/u next week - f/u BP and HR prior to surgery on Wednesday ) - Discharge Summary/Plan Comment DC Time >30 min.: Yes (40 - setting up home health care) - Patient Data Vitals - Most Recent: Last Vital Signs Temp 37.2 C 02/05/17 10:45 Pulse 118 H 02/05/17 12:20 Resp 16 02/05/17 10:45 BP 158/97 H 02/05/17 10:45 Pulse Ox 95 02/05/17 10:45 Weight - Most Recent: 73.028 kg I&O - Last 24 hours: Intake & Output 02/04/17 02/05/17 02/05/17 22:59 06:59 14:59 Intake Total 090 837 [id number] Output Total 375 750 950 Balance 193 -650 1744 Lab Results - Last 24 hrs: Laboratory Results - last 24 hr 02/05/17 02/05/17 02/05/17 Range/Units 04:45 04:45 04:45 WBC 7.5 (4.5-11.0) K/uL RBC 4.06 (3.30-5.50) M/uL Hgb 11.7 L (12.0-15.0) g/dL Hct 35.6 L (36.0-48.0) % MCV 88 (80-98) fL MCH 29 (27-31) pg MCHC 33 (32-36) % Plt Count 225 (150-400) K/uL PT 12.8 H (9.5-12.0) sec INR 1.19 (0.80-1.20) Sodium 141 (140-148) mmol/L Potassium 4.0 (3.6-5.2) mmol/L Chloride 105 (100-108) mmol/L Carbon Dioxide 28 (21-32) mmol/L Anion Gap 7.6 (5.0-14.0) mmol/L BUN 10 (7-18) mg/dL Creatinine 0.8 (0.6-1.0) mg/dL Est Cr Clr Drug Dosing 54.13 mL/min Estimated GFR (MDRD) > 60 (>60) Glucose 81 (74-106) mg/dL Calcium 8.2 L (8.5-10.1) mg/dL Med Orders - Current: Current Medications Acetaminophen (Tylenol) 650 mg PO Q4H PRN PRN Reason: Pain (Mild 1-3)/fever Aspirin (Aspirin) 81 mg PO DAILY [facility] Last Admin: 02/05/17 09:19 Dose: 81 mg Atorvastatin Calcium (Lipitor) 80 mg PO BEDTIME [facility] Last Admin: 02/04/17 21:22 Dose: 80 mg Carvedilol (Coreg) 12.5 mg PO BID [facility] Clopidogrel Bisulfate (Plavix) 75 mg PO DAILY [facility] Last Admin: 02/05/17 09:21 Dose: 75 mg Diphenhydramine HCl (Benadryl) 25 mg PO Q4H PRN PRN Reason: Rash Furosemide (Lasix) 40 mg PO DAILY [facility] Last Admin: 02/05/17 09:20 Dose: 40 mg Glipizide (Glucotrol) 5 mg PO BID [facility] Last Admin: 02/05/17 09:20 Dose: 5 mg Sodium Chloride (Normal Saline) 1,000 mls @ 100 mls/hr IV ASDIRECTED [facility] Last Admin: 02/05/17 04:24 Dose: 100 mls/hr Levetiracetam (Keppra) 1,500 mg PO BID [facility] Last Admin: 02/05/17 09:30 Dose: 1,500 mg Lisinopril (Prinivil) 5 mg PO DAILY [facility] Last Admin: 02/05/17 09:22 Dose: 5 mg Metformin HCl (Glucophage Xr) 1,000 mg PO BIDMEALS [facility] Last Admin: 02/05/17 07:43 Dose: 1,000 mg Morphine Sulfate (Morphine) 2 - 4 mg IVPUSH Q2H PRN PRN Reason: Pain (severe 7-10) Ondansetron HCl (Zofran Odt) 4 mg PO Q6H PRN PRN Reason: Nausea able to take PO Oxycodone HCl (Oxycodone) 5 mg PO Q4H PRN PRN Reason: Pain (moderate 4-6) Senna/Docusate Sodium (Senna Plus) 1 tab PO BID PRN PRN Reason: Constipation Tramadol HCl (Ultram) 100 mg PO Q4H PRN PRN Reason: Pain Last Admin: 02/05/17 08:17 Dose: 100 mg Warfarin Sodium (Coumadin) 5 mg PO SuTuWeThSa@1300 NEW Warfarin Sodium (Coumadin) 6 mg PO MoFr@1300 [facility] Discontinued Medications Bupivacaine HCl (Marcaine 0.5%) Confirm Administered Dose 50 ml .ROUTE .STK-MED ONE Stop: 02/04/17 11:26 Last Admin: 02/04/17 12:05 Dose: 20 ml Carvedilol (Coreg) 6.25 mg PO BID [facility] Last Admin: 02/05/17 09:21 Dose: 6.25 mg Carvedilol (Coreg) 6.25 mg PO ONETIME ONE Stop: 02/05/17 11:23 Last Admin: 02/05/17 12:20 Dose: 6.25 mg Dexamethasone (Dexamethasone) Confirm Administered Dose 4 mg .ROUTE .STK-MED ONE Stop: 02/04/17 11:49 Fentanyl Citrate (Fentanyl 0.05 Mg/Ml Vial) Confirm Administered Dose 50 mcg .ROUTE .STK-MED ONE Stop: 02/04/17 11:48 Gentamicin Sulfate (Gentamicin) Confirm Administered Dose 240 mg .ROUTE .STK- MED ONE Stop: 02/04/17 11:26 Glycopyrrolate (Robinul) Confirm Administered Dose 1 mg .ROUTE .STK-MED ONE Stop: 02/04/17 11:49 Sodium Chloride (Normal Saline) 1,000 mls @ 200 mls/hr IV ASDIRECTED [facility] Last Admin: 02/04/17 09:44 Dose: 200 mls/hr Phytonadione 2.5 mg/ Sodium (Chloride) 50.25 mls @ 100 mls/hr IV NOW ONE Stop: 02/04/17 11:30 Last Admin: 02/04/17 11:39 Dose: 100 mls/hr Cefazolin Sodium/Dextrose 2 gm (/ Premix) 50 mls @ 100 mls/hr IV ONETIME ONE Stop: 02/04/17 12:06 Last Admin: 02/04/17 16:40 Dose: Not Given Cefazolin Sodium 2 gm/ Sodium (Chloride) 50 mls @ 100 mls/hr IV Q8H [facility] Stop: 02/05/17 12:29 Ibuprofen (Motrin) 600 mg PO ONETIME ONE Stop: 02/04/17 07:38 Last Admin: 02/04/17 08:00 Dose: 600 mg Morphine Sulfate (Morphine) 2 mg IVPUSH Q2H PRN PRN Reason: Pain Neostigmine Methylsulfate (Neostigmine) Confirm Administered Dose 5 mg .ROUTE .STK-MED ONE Stop: 02/04/17 11:49 Ondansetron HCl (Zofran) Confirm Administered Dose 4 mg .ROUTE .STK-MED ONE Stop: 02/04/17 11:49 Oxycodone/Acetaminophen (Percocet 325-5 Mg) 1 tab PO Q4H PRN PRN Reason: Pain Povidone Iodine (Betadine 10% Soln) Confirm Administered Dose 1 ml .ROUTE .STK- MED ONE Stop: 02/04/17 11:27 Propofol (Diprivan 20 Ml) Confirm Administered Dose 200 mg .ROUTE .STK-MED ONE Stop: 02/04/17 11:49 Rocuronium [place] (Zemuron) Confirm Administered Dose 50 mg .ROUTE .STK-MED ONE Stop: 02/04/17 11:49 *Q Meaningful Use (DIS) - VTE *Q VTE Criteria *Q: VTE Pharmacological Contraindications *Q: Patient Scheduled Surgery - Stroke *Q Stroke Criteria *Q: - AMI *Q AMI Criteria *Q:
[2017-02-05] MEDS ORDERED: Non-Formulary Medication 1 Each (Warfarin [Coumadin] 6 MG) PO SCH (13:00)
[2017-02-05] MEDS ORDERED: Warfarin 3 MG Tab PO SCH (13:00)
[2017-02-05] MEDS ORDERED: Carvedilol 6.25 MG Tab PO SCH (21:00)
[2017-02-05] MEDS ORDERED: Carvedilol 12.5 MG Tab PO SCH (21:00)
[2017-02-06] MEDS ORDERED: Warfarin 5 MG Tab PO SCH (13:00)
[2017-02-06] MEDS ORDERED: Non-Formulary Medication 1 Each (Warfarin [Coumadin] 5 MG) PO SCH (13:00)
== END 2017-02-05 14:04 | disposition home or self-care (01) | DRG 562 ==
LOC: JP.ED 06:49 → JP.MS 10:49 → JP.SDS 11:04 → UNDOADMIN 13:16 → JP.MS 13:16 → UNDODISIN 02-05 14:04
PROVIDERS: ADMIT Internal Medicine; ATTEND Internal Medicine
PROC: 2W3QX1Z Immobilization of Right Lower Leg using Splint (ICD-10-PCS; principal; 2017-02-04)
DX: S82.841A Displaced bimalleolar fracture of right lower leg, initial encounter for closed fracture (principal); G93.49 Other encephalopathy; I10 Essential (primary) hypertension; I48.2 Chronic atrial fibrillation; E11.42 Type 2 diabetes mellitus with diabetic polyneuropathy; Z79.84 Long term (current) use of oral hypoglycemic drugs; Z79.01 Long term (current) use of anticoagulants; W01.0XXA Fall on same level from slipping, tripping and stumbling without subsequent striking against object, initial encounter; Y92.002 Bathroom of unspecified non-institutional (private) residence as the place of occurrence of the external cause; I25.10 Atherosclerotic heart disease of native coronary artery without angina pectoris; I25.2 Old myocardial infarction; Z79.82 Long term (current) use of aspirin; Z95.1 Presence of aortocoronary bypass graft; Z95.5 Presence of coronary angioplasty implant and graft; H54.7 Unspecified visual loss; Z88.8 Allergy status to other drugs, medicaments and biological substances; R00.0 Tachycardia, unspecified
CPT/HCPCS: 36415; 71010 ×2; 73610 ×2; 80053; 83880; 85025; 85610; 93005; 93010; 96361; 99283; 99285; A9270; J7040; 76000; 80048; 82962; 85027; 96374; 96375; 97161-GP; 97165-GO; 97530-GP; J1100; J1580; J2405; J2704; J2710; J3010; J3430; J7050

== ENCOUNTER 2017-02-10 07:10 | Inpatient (IN) | payer MEDICARE ==
[2017-02-10] MEDS ORDERED: Lactated Ringers 1,000 ML IV SCH (07:45)
--- NOTE | 2017-02-10 09:17 | CR ---
Ankle Min 3V Rt HISTORY: fracture right ankle COMPARISON: 02/04/2017 FINDINGS: Bimalleolar fracture right ankle is redemonstrated. Lateral displacement and angulation is similar to the prior study. The talus is subluxed/newly dislocated laterally. There is mild overrid ing. IMPRESSION: Bimalleolar ankle fracture with lateral displacement, angulation, and overriding is akua lar in position and alignment to exam of 02/04/2017.
[2017-02-10] MEDS: ceFAZolin 2 GM in Sodium Chloride 0.9% 50 ML IV ONE (09:30)
[2017-02-10] MEDS ORDERED: Povidone-Iodine 10% Soln 118.25 ML Bottle ONE (09:39)
[2017-02-10] MEDS ORDERED: Propofol 200 MG/20 ML SDV ONE (09:39)
[2017-02-10] MEDS ORDERED: fentaNYL 100 MCG/2 ML SDV ONE (09:39)
[2017-02-10] MEDS ORDERED: Bupivacaine 0.5%/EPINEPHrine 1:200,000 50 ML MDV ONE (09:41)
[2017-02-10] MEDS: traMADol 50 MG Tab PO SCH ×3 (11:05→22:54)
--- NOTE | 2017-02-10 12:07 | PCM.HP ---
H&P History of Present Illness - General Date of Service: 02/10/17 Admit Problem/Dx: Admission Diagnosis/Problem Admission Diagnosis/Problem Atrial fibrillation Source of Information: Patient, Family, Provider History Limitations: Reports: Altered Mental Status (congenital cognitive impairment) - History of Present Illness Initial Comments - Free Text/Narative: Ms. Johnson is a 71-year-old woman who experienced a right ankle fracture last week. She was hospitalized overnight and the fracture was splinted with the plan to proceed with surgical repair of the fracture today. During her last hospitalization was noted to have atrial fibrillation ablation with rapid ventricular response and her rate slowing medication with the Coreg was increased to 25 mg twice daily. She came back in today to have the surgical repair and was noted to be in atrial fibrillation with rapid ventricular response and rates into the 140s. She was not felt to be candidate for surgery and so the fracture was reduced manually and she was placed in a cast. I'm asked to see her at this time by Dr. Rex Schwartz for further evaluation and management of the atrial fibrillation. Patient herself is unable to provide significant history concerning recent symptoms or events because of congenital cognitive impairment. She does have a known history of coronary artery disease and is status post angioplasty and stent placement done 3 months ago. She remains on aspirin and Plavix, her warfarin was held pending surgery today. She denies current symptoms of chest pain or pressure or significant shortness of breath. Right Ankle Pain Score (Numeric/FACES): 10 - Related Data Allergies/Adverse Reactions: Allergies Allergy/AdvReac Type Severity Reaction Status Date / Time Nxknixu-Bdv-Pvg Reductase AdvReac Muscle Verified 02/04/17 06:56 Inhibitor Aches Home Medications: Home Meds Aspirin [Leigha Chewable Aspirin] 81 mg PO DAILY 09/04/13 [History] Furosemide [Lasix] 40 mg PO DAILY 09/04/13 [History] Lisinopril [Prinivil] 5 mg PO DAILY 09/04/13 [History] Warfarin [Coumadin] 5 mg PO SUTUWETHSA 09/04/13 [History] Warfarin [Coumadin] 6 mg PO MOFR 10/17/14 [History] levETIRAcetam [Levetiracetam] 1,500 mg PO BID 10/17/14 [History] metFORMIN [Glucophage XR] 1,000 mg PO BIDMEALS 10/17/14 [History] Bacitracin/Neomycin/Polymyxin [Neosporin Oint] 1 applic TOP ASDIRECTED PRN 05/24 [History] Calcium Carbonate [Tums] 2 tab PO ASDIRECTED PRN 05/24/16 [History] guaiFENesin [Robitussin] 10 ml PO ASDIRECTED PRN 05/24/16 [History] glipiZIDE [Glucotrol] 5 mg PO BID 11/06/16 [History] Clopidogrel [Plavix] 1 tab PO DAILY 02/04/17 [History] Hydrocortisone [Hydrocortisone 1% Crm] 1 dose TOP ASDIRECTED 02/04/17 [History] Loperamide [Imodium] 2 cap PO ASDIRECTED PRN 02/04/17 [History] Magnesium Hydroxide [Milk of Magnesia] 30 ml PO ASDIRECTED 02/04/17 [History] Menthol/Methyl Salicylate [Icy Hot] 1 dose TOP ASDIRECTED PRN 02/04/17 [History] Phenol [Cepastat] 1 dose PO ASDIRECTED 02/04/17 [History] atorvaSTATin Calcium [Atorvastatin Calcium] 1 tab PO DAILY 02/04/17 [History] diphenhydrAMINE [Benadryl] 1 tab PO Q4H PRN 02/04/17 [History] Acetaminophen [Acetaminophen Extra Strength] 1,000 mg PO TID #90 tablet [Rx] Carvedilol [Coreg] 25 mg PO BID 02/05/17 [History] traMADol [Ultram] 100 mg PO Q4H PRN #100 tablet 02/05/17 [Rx] Past Medical History HEENT History: Reports: Impaired Vision Other HEENT History: wears glasses Cardiovascular History: Reports: Afib, Bypass, CAD, Hypertension, OR, Stents, Other (See Below) Other Cardiovascular History: Edema Respiratory History: Reports: Pneumonia, Recurrent Gastrointestinal History: Reports: Chronic Constipation, GI Bleed Genitourinary History: Reports: Urinary Incontinence Neurological History: Reports: Neuropathy, Peripheral, Seizure, Other (See Below ) Other Neuro History: static encephalopathy Psychiatric History: Reports: Anxiety, Other (See Below) Other Psychiatric History: mental disability. Endocrine/Metabolic History: Reports: Diabetes, Type II, Obesity/BMI 30+ Dermatologic History: Reports: Other (See Below) Other Dermatologic History: actinic keratosis, seorrheic keratosis - Infectious Disease History Infectious Disease History: Reports: Chicken Pox Other Infectious Disease History: unknown - Past Surgical History HEENT Surgical History: Reports: None Cardiovascular Surgical History: Reports: Coronary Artery Bypass, Coronary Artery Stent Respiratory Surgical History: Reports: None GI Surgical History: Reports: Colonoscopy Female Surgical History: Reports: None Endocrine Surgical History: Reports: None Neurological Surgical History: Reports: None Dermatological Surgical History: Reports: None Social & Family History - Tobacco Use Smoking Status *Q: Never Smoker Second Hand Smoke Exposure: No - Caffeine Use Caffeine Use: Reports: Coffee, Soda - Alcohol Use Days Per Week of Alcohol Use: 0 - Recreational Drug Use Recreational Drug Use: No H&P Review of Systems - Review of Systems: Review Of Systems: Unable To Obtain General: Reports: ROS unobtainable (cognitive impairment) Exam - Exam Exam: See Below - Vital Signs Vital Signs: Last Vital Signs Temp 95.5 F 02/10/17 10:27 Pulse 147 H 02/10/17 11:38 Resp 18 02/10/17 11:38 BP 126/87 02/10/17 11:38 Pulse Ox 97 02/10/17 11:38 Weight: 161 lb - Exam General: Alert, Cooperative, Mild Distress HEENT: Conjunctiva Clear, Hearing Intact, Mucosa Moist & [place], Normal Nasal Septum, Posterior Pharynx Clear, Pupils Equal Neck: Supple, Trachea Midline, +2 Carotid Pulse wo Bruit Lungs: Clear to Auscultation, Normal Respiratory Effort Cardiovascular: Irregular Rhythm, Tachycardia. No: Bradycardia GI/Abdominal Exam: Normal Bowel Sounds, Soft, Non-Tender, No Distention Back Exam: Normal Inspection, Full Range of Motion Extremities: Other (past in place right lower leg). No: Pedal Edema Skin: Warm, Dry, Intact Neurological: Cranial Nerves Intact, Strength Equal Bilateral, Normal Speech, Sensation Intact. No: Focal Deficit Neuro Extensive - Mental Status: Alert, Normal Mood/Affect. No: Normal Cognition, Memory Intact - Patient Data Lab Results Last 24 hrs: Laboratory Results - last 24 hr 02/10/17 02/10/17 Range/Units 07:30 07:30 WBC 9.9 (4.5-11.0) K/uL RBC 4.33 (3.30-5.50) M/uL Hgb 12.2 (12.0-15.0) g/dL Hct 37.9 (36.0-48.0) % MCV 88 (80-98) fL MCH 28 (27-31) pg MCHC 32 (32-36) % Plt Count 372 (150-400) K/uL PT 11.0 (9.5-12.0) sec INR 1.03 (0.80-1.20) Result Diagrams: 02/10/17 07:30 *Q Meaningful Use (ADM) - VTE *Q VTE Criteria *Q: - VTE Risk Assess *Q Each Risk Factor Represents 1 Point: None Total Score 1 Point Risk Factors: 0 Each Risk Factor Represents 2 Points: Age 60 - 74 Years Total Score 2 Point Risk Factors: 2 Each Risk Factor Represents 3 Points: None Total Score 3 Point Risk Factors: 0 Each Risk Factor Represents 5 Points: Hip, Pelvis or Leg Fracture, Less than 1 month Total Score 5 Point Risk Factors: 5 Venous Thromboembolism Risk Factor Score *Q: 7 - Stroke *Q Stroke Criteria *Q: - AMI *Q AMI Criteria *Q: Problem List Initiated/Reviewed/Updated: Yes Orders Last 24hrs: Active Orders 24 hr Category Date Time Status Patient Status Manage Transfer [TRANSFER] Routine ADT 02/10/17 11:44 Active Cardiac Monitoring [RC] .As Directed Care 02/10/17 11:44 Active RT Incentive Spirometry [RC] ASDIRECTED Care 02/10/17 07:00 Active Fluoro Up To 1Hr [CR] Routine Exams 02/10/17 08:28 Taken Lactated Ringers [Ringers, Lactated] 1,000 ml Med 02/10/17 07:45 Active IV ASDIRECTED traMADol [Ultram] Med 02/10/17 11:00 Active 50 mg PO Q6H Sequential Compression Device [OM.PC] Routine Oth 02/10/17 07:15 Ordered Resuscitation Status Routine Resus Stat 02/10/17 11:51 Ordered EKG 12 Lead [EK] Routine Ther 02/10/17 07:15 Ordered Medication Orders Lactated Ringer's (Ringers, Lactated) 1,000 mls @ 0 mls/hr IV ASDIRECTED NEW PRN Reason: KVO Last Admin: 02/10/17 08:24 Dose: 25 mls/hr Tramadol HCl (Ultram) 50 mg PO Q6H NEW Last Admin: 02/10/17 11:05 Dose: 50 mg Assessment/Plan Comment:: ASSESSMENT AND PLAN Atrial fibrillation with rapid ventricular [id number], during previous hospitalization was noted to have elevated heart rate as well as again this morning. Currently treated with Coreg 50 mg by mouth twice daily. -Plan to re-anticoagulate with warfarin, 7.5 mg by mouth today -Recheck INR in a.m. -Lovenox 70 mg subcutaneous every 12 hours until INR is within therapeutic range -Diltiazem 20 mg IV bolus -Diltiazem continuous infusion 5 mg per hour -Transitioned to oral diltiazem tomorrow Right lower leg fracture -Management per Dr. Huan Schwartz Coronary artery disease-currently asymptomatic -continue outpatient medical regimen Type 2 diabetes mellitus -Hold glipizide -Continue metformin -4 times a day glucometers -Low-dose sliding scale NovoLog MAINTENANCE ISSUES -DVT prophylaxis;therapeutic dose of Lovenox should provide adequate DVT prophylaxis -GI prophylaxis;not indicated -[place]oya catheter;not indicated -Nutrition;consistent carb diet -Nicotine dependence;not required CODE STATUS-full code ADMISSION STATUS-patient will be admitted to inpatient status, expect at least a 2 night hospital stay for evaluation and management of problems as outlined above. At the time of this admission I do not reasonably expected evaluation and management of this problem will require more than a 96 hour hospital stay. DISPOSITION-anticipate discharge to home after the hospital stay. PRIMARY CARE PROVIDER-Dr. Rivera
[2017-02-10] MEDS ORDERED: oxyCODONE 5 MG Tab PO ONE (12:11)
[2017-02-10] MEDS ORDERED: Docusate Sodium 100 MG Cap PO PRN (13:39)
[2017-02-10] MEDS ORDERED: Magnesium Hydroxide 400 MG/5 ML Susp 30 ML Cup PO PRN (13:39)
[2017-02-10] MEDS ORDERED: Acetaminophen 325 MG Tab PO PRN (13:39)
[2017-02-10] MEDS ORDERED: 50% Dextrose in Water 50 ML Syringe IV PRN (13:39)
[2017-02-10] MEDS ORDERED: Glucose Gel 15 GM in 37.5 GM Tube PO PRN (13:39)
[2017-02-10] MEDS ORDERED: Ondansetron 4 MG/2 ML SDV IV PRN (13:39)
[2017-02-10] MEDS ORDERED: Sodium Chloride 0.9% 10 ML Syringe FLUSH PRN (13:39)
[2017-02-10] MEDS ORDERED: Polyethylene Glycol 3350 Powder 17 GM Packet PO PRN (13:39)
[2017-02-10] MEDS ORDERED: Diltiazem 25 MG/5 ML SDV IVPUSH ONE (13:50)
[2017-02-10] MEDS ORDERED: Diltiazem 100 MG in Sodium Chloride 0.9% 100 ML IV SCH (14:00)
[2017-02-10] MEDS ORDERED: Warfarin 2.5 MG Tab PO ONE (15:00)
[2017-02-10] MEDS: Magnesium Sulfate/Water 2 GM in Premix Bag 1 BAG IV SCH ×2 (16:51→21:04)
[2017-02-10] MEDS: Enoxaparin 80 MG/0.8 ML Syringe SUBCUT SCH (16:52)
[2017-02-10] MEDS: metFORMIN 500 MG Tab.ER PO SCH (17:06)
[2017-02-10] MEDS: Insulin Aspart 100 Units/ML 3 ML Pen SUBCUT SCH (17:07)
[2017-02-10] MEDS: Carvedilol 25 MG Tab PO SCH (20:34)
[2017-02-10] MEDS: levETIRAcetam 250 MG Tab PO SCH (20:35)
[2017-02-10] MEDS ORDERED: LEVETIRACETAM 1500 MG PO SCH (21:00)
[2017-02-11] MEDS: oxyCODONE 5 MG Tab PO PRN ×2 (02:28→09:04)
[2017-02-11] MEDS: Enoxaparin 80 MG/0.8 ML Syringe SUBCUT SCH ×2 (04:59→18:05)
[2017-02-11] MEDS: Magnesium Sulfate/Water 2 GM in Premix Bag 1 BAG IV SCH (05:00)
[2017-02-11] MEDS: traMADol 50 MG Tab PO SCH ×4 (05:00→23:57)
[2017-02-11] MEDS: ceFAZolin 2 GM in Sodium Chloride 0.9% 50 ML IV ONE (06:57)
[2017-02-11] MEDS: metFORMIN 500 MG Tab.ER PO SCH ×2 (08:17→17:15)
[2017-02-11] MEDS: Diltiazem IR 30 MG Tab PO SCH ×4 (08:20→21:26)
--- NOTE | 2017-02-11 08:36 | OR ---
DATE OF PROCEDURE: 02/10/2017 PREOPERATIVE DIAGNOSIS: Bimalleolar ankle fracture, closed. POSTOPERATIVE DIAGNOSIS: Bimalleolar ankle fracture, closed. PROCEDURE: Closed reduction and casting, right bimalleolar ankle fracture. BUCKET OPERATOR: JOAQUINA Almeida. FLUID: Lactated Ringer solution. ESTIMATED BLOOD LOSS: None. COMPLICATIONS: None. SPECIMEN: None. DISCHARGE DISPOSITION: Stable to PACU. INDICATIONS FOR PROCEDURE: The patient was seen last week. We were going to do an open reduction and internal fixation. However, the patient has had a history of atrial fibrillation, and her heart rate was in the 120s. We did order an EKG this morning, which showed a heart rate in the 150s. We also took some films prior to going back, and it had been obvious that the patient had been walking on it, as she is completely displaced with the distal fibula overriding the proximal fibular segment significantly. Risks and benefits of procedure were explained to the patient's caregiver, and informed consent was obtained. DETAILS OF PROCEDURE: The patient was seen preoperatively by myself and the Anesthesia Staff in the preoperative holding area, where the operative site was marked. She was brought to the operative suite by the anesthesia staff, where MAC local sedation was administered. I did apply some Betadine and then injected the joint with approximately 20 mL of 0.5% bupivacaine with epinephrine. We then used the fluoroscopy unit, and it did confirm that the fracture was severely displaced at the medial and lateral malleolus. With the knee flexed, I spent quite a bit of time milking the tissues to get the distal fibula back into position, and then with holding the patient with the foot and ankle in extreme pronation, I then casted with plaster followed by an overwrap with fiberglass. We confirmed that she was in adequate alignment. Please note that prior to the cast placement, there was an area over the medial ankle with skin breakdown, so we did place Betadine-soaked Adaptic plus sponges. Benoit Schwartz DO /[id number]
--- NOTE | 2017-02-11 08:50 | PCM.PN ---
- General Info Date of Service: 02/11/17 Functional Status: Reports: Pain Controlled, Tolerating Diet - Review of Systems General: Reports: Weakness. Denies: Fever, Chills Pulmonary: Reports: No Symptoms Cardiovascular: Reports: No Symptoms Gastrointestinal: Reports: No Symptoms Systems Review Comment:: This patient has been stable since admission yesterday, heart rate control has improved with use of IV Cardizem. Rates have been higher this morning when she is been more active. Vital signs have otherwise been stable and she has been afebrile. Denies current symptoms of chest pain or pressure or significant shortness of breath. - Patient Data Vitals - Most Recent: Last Vital Signs Temp 98.5 F 02/11/17 07:00 Pulse 94 02/11/17 07:00 Resp 28 H 02/11/17 07:00 BP 139/79 02/11/17 07:00 Pulse Ox 92 L 02/11/17 07:00 Weight - Most Recent: 161 lb I&O - Last 24 Hours: Intake & Output 02/10/17 02/11/17 02/11/17 22:59 06:59 14:59 Intake Total 365 160 Output Total 450 200 Balance -85 -40 Lab Results Last 24 Hours: Laboratory Results - last 24 hr 02/10/17 02/11/17 02/11/17 Range/Units 07:28 04:36 04:36 PT 11.9 (9.5-12.0) sec INR 1.11 (0.80-1.20) Sodium 140 138 L (140-148) mmol/L Potassium 4.6 4.5 (3.6-5.2) mmol/L Chloride 100 102 (100-108) mmol/L Carbon Dioxide 28 30 (21-32) mmol/L Anion Gap 11.8 10.5 (5.0-14.0) mmol/L BUN 14 12 (7-18) mg/dL Creatinine 1.0 0.9 (0.6-1.0) mg/dL Est Cr Clr Drug Dosing 43.30 48.10 mL/min Estimated GFR (MDRD) 55 L > 60 (>60) Glucose 156 H 143 H (74-106) mg/dL Calcium 8.9 8.5 (8.5-10.1) mg/dL Magnesium 1.3 L 1.8 (1.8-2.4) mg/dL Total Bilirubin 0.8 D (0.2-1.0) mg/dL AST 16 (15-37) U/L ALT 19 (12-78) U/L Alkaline Phosphatase 66 (46-116) U/L Total Protein 8.1 (6.4-8.2) g/dL Albumin 3.2 L (3.4-5.0) g/dL Globulin 4.9 H (2.3-3.5) g/dL Albumin/Globulin Ratio 0.7 L (1.2-2.2) Med Orders - Current: Current Medications Acetaminophen (Tylenol) 650 mg PO Q4H PRN PRN Reason: Pain (Mild 1-3)/fever Last Admin: 02/11/17 02:28 Dose: 650 mg Aspirin (Aspirin) 81 mg PO DAILY [facility] Atorvastatin Calcium (Lipitor) 80 mg PO DAILY [facility] Carvedilol (Coreg) 25 mg PO BID [facility] Last Admin: 02/10/17 20:34 Dose: 25 mg Clopidogrel Bisulfate (Plavix) 75 mg PO DAILY [facility] Dextrose (Glutose 15) 15 gm PO ASDIRECTED PRN PRN Reason: Hypoglycemia Dextrose/Water (Dextrose 50% In Water) 50 ml IV ASDIRECTED PRN PRN Reason: Hypoglycemia Diltiazem HCl (Cardizem) 60 mg PO Q6HR [facility] Last Admin: 02/11/17 08:20 Dose: 60 mg Docusate Sodium (Colace) 100 mg PO BID PRN PRN Reason: Constipation Enoxaparin Sodium (Lovenox) 70 mg SUBCUT Q12H [facility] Last Admin: 02/11/17 04:59 Dose: 70 mg Furosemide (Lasix) 40 mg PO DAILY [facility] Insulin Aspart (Novolog) 0 unit SUBCUT ASDIRECTED [facility] PRN Reason: Protocol Last Admin: 02/10/17 17:07 Dose: 1 unit Levetiracetam (Keppra) 1,500 mg PO BID [facility] Last Admin: 02/10/17 20:35 Dose: 1,500 mg Lisinopril (Prinivil) 5 mg PO DAILY [facility] Magnesium Hydroxide (Milk Of Magnesia) 30 ml PO Q12H PRN PRN Reason: Constipation Metformin [facility] (Gluc[facility] Xr) [facility] Last Admin: 02/11/17 08:17 Dose: 1,000 mg Ondansetron HCl (Zofran) 4 mg IV Q4H PRN PRN Reason: Nausea/Vomiting Oxycodone HCl (Oxycodone) 5 mg PO Q4H PRN PRN Reason: Pain (moderate 4-6) Last Admin: 02/11/17 02:28 Dose: 5 mg Polyethylene Glycol (Miralax) 17 gm PO DAILY PRN PRN Reason: Constipation Sodium Chloride (Saline Flush) 10 ml FLUSH ASDIRECTED PRN PRN Reason: Keep Vein Open Tramadol HCl (Ultram) 50 mg PO Q6H NEW Last Admin: 02/11/17 05:00 Dose: 50 mg Warfarin Sodium (Coumadin) 7.5 mg PO ONETIME ONE Stop: 02/11/17 13:01 Discontinued Medications Bupivacaine HCl/Epinephrine Bitart (Marcaine 0.5%/Epinephrine 1:200,000) Confirm Administered Dose 50 ml .ROUTE .STK-MED ONE Stop: 02/10/17 09:42 Last Admin: 02/10/17 09:48 Dose: 30 ml Diltiazem HCl (Diltiazem) 20 mg IVPUSH ONETIME ONE Stop: 02/10/17 13:51 Last Admin: 02/10/17 13:56 Dose: 20 mg Fentanyl (Sublimaze) Confirm Administered Dose 100 mcg .ROUTE .STK-MED ONE Stop: 02/10/17 09:40 Lactated Ringer's (Ringers, Lactated) 1,000 mls @ 0 mls/hr IV ASDIRECTED NEW PRN Reason: KVO Last Admin: 02/10/17 08:24 Dose: 25 mls/hr Cefazolin Sodium 2 gm/ Sodium (Chloride) 50 mls @ 100 mls/hr IV ONETIME ONE Stop: 02/10/17 09:14 Last Admin: 02/11/17 06:57 Dose: Not Given Diltiazem HCl 100 mg/ Sodium (Chloride) 100 mls @ 5 mls/hr IV TITRATE NEW; 5 MG /HR PRN Reason: Protocol Last Admin: 02/10/17 13:58 Dose: 5 mg/hr, 5 mls/hr Magnesium Sulfate 2 gm/ Premix 50 mls @ 25 mls/hr IV Q6H NEW Stop: 02/11/17 05:59 Last Admin: 02/11/17 05:00 Dose: 25 mls/hr Oxycodone HCl (Oxycodone) 5 mg PO ONETIME ONE Stop: 02/10/17 12:12 Last Admin: 02/10/17 12:19 Dose: 5 mg Povidone Iodine (Betadine 10% Soln) Confirm Administered Dose 1 ml .ROUTE .STK- MED ONE Stop: 02/10/17 09:40 Last Admin: 02/10/17 09:50 Dose: 1 ml Propofol (Diprivan 20 Ml) Confirm Administered Dose 200 mg .ROUTE .STK-MED ONE Stop: 02/10/17 09:40 Warfarin Sodium (Coumadin) 7.5 mg PO ONETIME ONE Stop: 02/10/17 15:01 Last Admin: 02/10/17 15:31 Dose: 7.5 mg - Exam Quality Assessment: DVT Prophylaxis General: Alert, Cooperative, No Acute Distress Lungs: Clear to Auscultation, Normal Respiratory Effort Cardiovascular: No Murmurs, Irregular Rhythm, Tachycardia. No: Bradycardia GI/Abdominal Exam: Normal Bowel Sounds, Soft, Non-Tender, No Organomegaly, No Distention, No Abnormal Bruit, No Mass, Pelvis Stable Extremities: Normal Inspection, No Pedal Edema Skin: Warm, Dry, Intact - Problem List Review Problem List Initiated/Reviewed/Updated: Yes - My Orders Last 24 Hours: My Active Orders 02/10/17 11:44 Cardiac Monitoring [RC] Q6H 02/10/17 11:51 Resuscitation Status Routine 02/10/17 12:11 Convert IV to Saline Lock [OM.PC] Urgent 02/10/17 13:39 Patient Status [ADT] Routine Blood Glucose Check, Bedside [RC] QIDACANDBED Communication Order [RC] ASDIRECTED Diabetes Education [RC] Click to Edit Intake and Output [RC] QSHIFT Notify Provider Vital Signs [RC] ASDIRECTED Notify Provider [RC] PRN Oxygen Therapy [RC] PRN Up With Assistance [RC] ASDIRECTED VTE/DVT Education [RC] Per Unit Routine PT Evaluation and Treatment [CONS] Routine Acetaminophen [Tylenol] 650 mg PO Q4H PRN Dextrose 50% in Water 50 ml IV ASDIRECTED PRN Dextrose [Glutose 15] 15 gm PO ASDIRECTED PRN Docusate Sodium [Colace] 100 mg PO BID PRN Insulin Aspart [NovoLOG] See Protocol SUBCUT ASDIRECTED Magnesium Hydroxide [Milk of Magnesia] 30 ml PO Q12H PRN Ondansetron [Zofran] 4 mg IV Q4H PRN Polyethylene Glycol 3350 [MiraLAX] 17 gm PO DAILY PRN Sodium Chloride 0.9% [Saline Flush] 10 ml FLUSH ASDIRECTED PRN oxyCODONE 5 mg PO Q4H PRN Saline Lock Insert [OM.PC] Routine VTE Pharmacological Contraindications [AST] Per Unit Routine 02/10/17 16:00 Enoxaparin [Lovenox] 70 mg SUBCUT Q12H 02/10/17 17:00 metFORMIN [Glucophage XR] 1,000 mg PO BIDMEALS 02/10/17 21:00 Carvedilol [Coreg] 25 mg PO BID levETIRAcetam [Keppra] 1,500 mg PO BID 02/10/17 Lunch Consistent Carbohydrate Diet [DIET] 02/11/17 07:30 GLUCOSE POC LAB TO COLLECT [POC] QIDACANDBED 02/11/17 09:00 Aspirin 81 mg PO DAILY Clopidogrel [Plavix] 75 mg PO DAILY Furosemide [Lasix] 40 mg PO DAILY Lisinopril [Prinivil] 5 mg PO DAILY atorvaSTATin [Lipitor] 80 mg PO DAILY 02/11/17 10:00 Diltiazem [Cardizem] 60 mg PO Q6HR 02/11/17 11:30 GLUCOSE POC LAB TO COLLECT [POC] QIDACANDBED 02/11/17 13:00 Warfarin [Coumadin] 7.5 mg PO ONETIME ONE 02/11/17 16:30 GLUCOSE POC LAB TO COLLECT [POC] QIDACANDBED 02/11/17 21:00 GLUCOSE POC LAB TO COLLECT [POC] QIDACANDBED 02/12/17 05:11 INR,PT,PROTHROMBIN TIME [COAG] AM 02/12/17 07:30 GLUCOSE POC LAB TO COLLECT [POC] QIDACANDBED 02/12/17 11:30 GLUCOSE POC LAB TO COLLECT [POC] QIDACANDBED 02/12/17 16:30 GLUCOSE POC LAB TO COLLECT [POC] QIDACANDBED 02/12/17 21:00 GLUCOSE POC LAB TO COLLECT [POC] QIDACANDBED 02/13/17 07:30 GLUCOSE POC LAB TO COLLECT [POC] QIDACANDBED 02/13/17 11:30 GLUCOSE POC LAB TO COLLECT [POC] QIDACANDBED 02/13/17 16:30 GLUCOSE POC LAB TO COLLECT [POC] QIDACANDBED 02/13/17 21:00 GLUCOSE POC LAB TO COLLECT [POC] QIDACANDBED 02/14/17 07:30 GLUCOSE POC LAB TO COLLECT [POC] QIDACANDBED 02/14/17 11:30 GLUCOSE POC LAB TO COLLECT [POC] QIDACANDBED 02/14/17 16:30 GLUCOSE POC LAB TO COLLECT [POC] QIDACANDBED 02/14/17 21:00 GLUCOSE POC LAB TO COLLECT [POC] QIDACANDBED 02/15/17 07:30 GLUCOSE POC LAB TO COLLECT [POC] QIDACANDBED 02/15/17 11:30 GLUCOSE POC LAB TO COLLECT [POC] QIDACANDBED 02/15/17 16:30 GLUCOSE POC LAB TO COLLECT [POC] QIDACANDBED 02/15/17 21:00 GLUCOSE POC LAB TO COLLECT [POC] QIDACANDBED 02/16/17 07:30 GLUCOSE POC LAB TO COLLECT [POC] QIDACANDBED 02/16/17 11:30 GLUCOSE POC LAB TO COLLECT [POC] QIDACANDBED 02/16/17 16:30 GLUCOSE POC LAB TO COLLECT [POC] QIDACANDBED 02/16/17 21:00 GLUCOSE POC LAB TO COLLECT [POC] QIDACANDBED 02/17/17 07:30 GLUCOSE POC LAB TO COLLECT [POC] QIDACANDBED 02/17/17 11:30 GLUCOSE POC LAB TO COLLECT [POC] QIDACANDBED 02/17/17 16:30 GLUCOSE POC LAB TO COLLECT [POC] QIDACANDBED 02/17/17 21:00 GLUCOSE POC LAB TO COLLECT [POC] QIDACANDBED 02/18/17 07:30 GLUCOSE POC LAB TO COLLECT [POC] QIDACANDBED 02/18/17 11:30 GLUCOSE POC LAB TO COLLECT [POC] QIDACANDBED 02/18/17 16:30 GLUCOSE POC LAB TO COLLECT [POC] QIDACANDBED 02/18/17 21:00 GLUCOSE POC LAB TO COLLECT [POC] QIDACANDBED 02/19/17 07:30 GLUCOSE POC LAB TO COLLECT [POC] QIDACANDBED 02/19/17 11:30 GLUCOSE POC LAB TO COLLECT [POC] QIDACANDBED 02/19/17 16:30 GLUCOSE POC LAB TO COLLECT [POC] QIDACANDBED 02/19/17 21:00 GLUCOSE POC LAB TO COLLECT [POC] QIDACANDBED 02/20/17 07:30 GLUCOSE POC LAB TO COLLECT [POC] QIDACANDBED 02/20/17 11:30 GLUCOSE POC LAB TO COLLECT [POC] QIDACANDBED 02/20/17 16:30 GLUCOSE POC LAB TO COLLECT [POC] QIDACANDBED 02/20/17 21:00 GLUCOSE POC LAB TO COLLECT [POC] QIDACANDBED 02/21/17 07:30 GLUCOSE POC LAB TO COLLECT [POC] QIDACANDBED 02/21/17 11:30 GLUCOSE POC LAB TO COLLECT [POC] QIDACANDBED - Plan Plan:: ASSESSMENT AND PLAN ATRIAL FIBRILLATION WITH RAPID VENTRICULAR RESPONSE-rate under better control with use of IV Cardizem -Plan to re-anticoagulate with warfarin, 7.5 mg by mouth today -Recheck INR in a.m. -Lovenox 70 mg subcutaneous every 12 hours until INR is within therapeutic range -Discontinue IV diltiazem -Diltiazem 60 mg by mouth every 6 hours RIGHT LOWER LEG FRACTURE -Management per Dr. Huan Schwartz CORONARY ARTERY DISEASE-currently asymptomatic -continue outpatient medical regimen TYPE 2 DIABETES MELLITUS -Hold glipizide -Continue metformin -4 times a day glucometers -Low-dose sliding scale NovoLog MAINTENANCE ISSUES -DVT prophylaxis;therapeutic dose of Lovenox should provide adequate DVT prophylaxis -GI prophylaxis;not indicated -Montoya catheter;not indicated -Nutrition;consistent carb diet -Nicotine dependence;not required CODE STATUS-full code ADMISSION STATUS-patient will be admitted to inpatient status, expect at least a 2 night hospital stay for evaluation and management of problems as outlined above. At the time of this admission I do not reasonably expected evaluation and management of this problem will require more than a 96 hour hospital stay. DISPOSITION-anticipate discharge to home after the hospital stay. PRIMARY CARE PROVIDER-Dr. Rivera
[2017-02-11] MEDS ORDERED: ATORVASTATIN CALCIUM PO SCH (09:00)
[2017-02-11] MEDS ORDERED: Furosemide 20 MG Tab PO SCH (09:00)
[2017-02-11] MEDS ORDERED: Lisinopril 10 MG Tab PO SCH (09:00)
[2017-02-11] MEDS: Aspirin 81 MG Tab.Chew PO SCH (09:04)
[2017-02-11] MEDS: Furosemide 40 MG Tab PO SCH (09:05)
[2017-02-11] MEDS: levETIRAcetam 250 MG Tab PO SCH ×2 (09:05→20:32)
[2017-02-11] MEDS: Carvedilol 25 MG Tab PO SCH ×2 (09:05→20:32)
[2017-02-11] MEDS: atorvaSTATin 20 MG Tab PO SCH (09:06)
[2017-02-11] MEDS: Lisinopril 5 MG Tab PO SCH (09:09)
[2017-02-11] MEDS: Clopidogrel 75 MG Tab PO SCH (09:10)
[2017-02-11] MEDS: Insulin Aspart 100 Units/ML 3 ML Pen SUBCUT SCH ×2 (11:10→21:24)
[2017-02-11] MEDS ORDERED: Warfarin 2.5 MG Tab PO ONE (13:00)
[2017-02-12] MEDS: Enoxaparin 80 MG/0.8 ML Syringe SUBCUT SCH (05:18)
[2017-02-12] MEDS: Diltiazem IR 30 MG Tab PO SCH (05:18)
[2017-02-12] MEDS: traMADol 50 MG Tab PO SCH (05:20)
[2017-02-12] MEDS: metFORMIN 500 MG Tab.ER PO SCH (07:42)
[2017-02-12] MEDS: oxyCODONE 5 MG Tab PO PRN (07:55)
[2017-02-12] MEDS ORDERED: Warfarin 2.5 MG Tab PO ONE ×2 (08:13→09:30)
[2017-02-12] MEDS ORDERED: Diltiazem 120 MG Cap.CD PO SCH (09:00)
[2017-02-12] MEDS: Aspirin 81 MG Tab.Chew PO SCH (09:03)
[2017-02-12] MEDS: Carvedilol 25 MG Tab PO SCH (09:04)
[2017-02-12] MEDS: levETIRAcetam 250 MG Tab PO SCH (09:05)
[2017-02-12] MEDS: Furosemide 40 MG Tab PO SCH (09:05)
[2017-02-12] MEDS: atorvaSTATin 20 MG Tab PO SCH (09:05)
[2017-02-12] MEDS: Clopidogrel 75 MG Tab PO SCH (09:06)
[2017-02-12] MEDS: Lisinopril 5 MG Tab PO SCH (09:06)
--- NOTE | 2017-02-12 11:05 | PCM.DCSUM1 ---
Discharge Summary - Hospital Course Brief History: Ms. Johnson is a 71-year-old woman who was admitted as a direct admission from same day surgery because of atrial fibrillation with rapid ventricular response. - Discharge Data Discharge Date: 02/12/17 Discharge Disposition: DC/Tfer to Other 71 Condition: Fair - Discharge Diagnosis/Problem(s) (1) Closed right ankle fracture SNOMED Code(s): 67937785 ICD Code: S82.891A - OTH FRACTURE OF RIGHT LOWER LEG, INIT FOR CLOS FX Status: Acute Current Visit: No (2) Chronic atrial fibrillation SNOMED Code(s): 146456352 ICD Code: I48.2 - CHRONIC ATRIAL FIBRILLATION Status: Chronic Current Visit: No Problem Details: Chronically anticoagulated (3) Diabetes mellitus type II, controlled SNOMED Code(s): 63987252 ICD Code: E11.9 - TYPE 2 DIABETES MELLITUS WITHOUT COMPLICATIONS Status: Chronic Current Visit: No Qualifiers: Diabetes mellitus complication status: with unspecified complications Diabetes mellitus termite control 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 PT Reason for Consult: no weightbearing right leg This query below is only for informational purposes and is not editable. Hospital Course: Ms. Johnson is a 71-year-old woman who unfortunately fell last week and experienced a left lower leg fracture. She was brought back to same day surgery on the day of admission for surgical repair of the fracture. At that time she was found to be in atrial fibrillation with rapid ventricular response heart rates in the 130s to 140s. Surgery was canceled, the fracture was set and the leg casted. I was asked to see her by Dr. Rex Schwartz for admission and medical management of her atrial fibrillation. She was admitted to the intensive care unit and started on IV Cardizem after receiving a Cardizem bolus. Heart rate was well controlled with IV Cardizem and the following morning she was transitioned to oral Cardizem. She was also placed on therapeutic dose of Lovenox and restarted with oral anticoagulation using warfarin. Tramadol was held and she was treated for pain as needed with oxycodone. Would continue to hold tramadol because of potential to lower seizure threshold and this patient does have a known history of seizure disorder. She will be discharged home on long-acting diltiazem and her usual dose of warfarin. She is to be nonweightbearing on her right leg and will resume usual diet. Follow-up appointment will be scheduled with Dr. Rex Schwartz in 2 weeks. Follow-up INR level will be obtained on April 17. - Patient Instructions Diet: Usual Diet as Tolerated Activity: As Tolerated Other/Special Instructions: Please schedule follow-up appointment with Dr. Huan Schwartz in 2 weeks. Please obtain an INR for follow-up of anticoagulation on February 15. - Discharge Plan Prescriptions/Med Rec: Diltiazem HCl [Diltiazem 24Hr Cd] 240 mg PO DAILY #30 cap.er.24h oxyCODONE 5 mg PO Q4H PRN #30 tablet PRN Reason: Pain Home Medications: Home Meds Aspirin [Leigha Chewable Aspirin] 81 mg PO DAILY 09/04/13 [History] Furosemide [Lasix] 40 mg PO DAILY 09/04/13 [History] Lisinopril [Prinivil] 5 mg PO DAILY 09/04/13 [History] Warfarin [Coumadin] 5 mg PO SUTUWETHSA 09/04/13 [History] Warfarin [Coumadin] 6 mg PO MOFR 10/17/14 [History] levETIRAcetam [Levetiracetam] 1,500 mg PO BID 10/17/14 [History] metFORMIN [Glucophage XR] 1,000 mg PO BIDMEALS 10/17/14 [History] Bacitracin/Neomycin/Polymyxin [Neosporin Oint] 1 applic TOP ASDIRECTED PRN 05/24 [History] Calcium Carbonate [Tums] 2 tab PO ASDIRECTED PRN 05/24/16 [History] guaiFENesin [Robitussin] 10 ml PO ASDIRECTED PRN 05/24/16 [History] glipiZIDE [Glucotrol] 5 mg PO BID 11/06/16 [History] Clopidogrel [Plavix] 1 tab PO DAILY 02/04/17 [History] Hydrocortisone [Hydrocortisone 1% Crm] 1 dose TOP ASDIRECTED 02/04/17 [History] Loperamide [Imodium] 2 cap PO ASDIRECTED PRN 02/04/17 [History] Magnesium Hydroxide [Milk of Magnesia] 30 ml PO ASDIRECTED 02/04/17 [History] Menthol/Methyl Salicylate [Icy Hot] 1 dose TOP ASDIRECTED PRN 02/04/17 [History] Phenol [Cepastat] 1 dose PO ASDIRECTED 02/04/17 [History] atorvaSTATin Calcium [Atorvastatin Calcium] 1 tab PO DAILY 02/04/17 [History] diphenhydrAMINE [Benadryl] 1 tab PO Q4H PRN 02/04/17 [History] Acetaminophen [Acetaminophen Extra Strength] 1,000 mg PO TID #90 tablet [Rx] Carvedilol [Coreg] 25 mg PO BID 02/05/17 [History] Diltiazem HCl [Diltiazem 24Hr Cd] 240 mg PO DAILY #30 cap.er.24h 02/12/17 [Rx] oxyCODONE 5 mg PO Q4H PRN #30 tablet 02/12/17 [Rx] - Patient Data Vitals - Most Recent: Last Vital Signs Temp 98.8 F 02/12/17 07:46 Pulse 97 02/12/17 09:04 Resp 28 H 02/12/17 07:46 BP 117/68 02/12/17 09:06 Pulse Ox 91 L 02/12/17 07:46 Weight - Most Recent: 160 lb 15.987 oz I&O - Last 24 hours: Intake & Output 02/11/17 02/12/17 02/12/17 22:59 06:59 14:59 Intake Total 920 Output Total 675 150 200 Balance 245 -150 -200 Lab Results - Last 24 hrs: Laboratory Results - last 24 hr 02/12/17 Range/Units 05:58 PT 16.1 H (9.5-12.0) sec INR 1.48 H (0.80-1.20) Med Orders - Current: Current Medications Acetaminophen (Tylenol) 650 mg PO Q4H PRN PRN Reason: Pain (Mild 1-3)/fever Last Admin: 02/11/17 02:28 Dose: 650 mg Aspirin (Aspirin) 81 mg PO DAILY NEW Last Admin: 02/12/17 09:03 Dose: 81 mg Atorvastatin Calcium (Lipitor) 80 mg PO DAILY [facility] Last Admin: 02/12/17 09:05 Dose: 80 mg Carvedilol (Coreg) 25 mg PO BID [facility] Last Admin: 02/12/17 09:04 Dose: 25 mg Clopidogrel Bisulfate (Plavix) 75 mg PO DAILY [facility] Last Admin: 02/12/17 09:06 Dose: 75 mg Dextrose (Glutose 15) 15 gm PO ASDIRECTED PRN PRN Reason: Hypoglycemia Dextrose/Water (Dextrose 50% In Water) 50 ml IV ASDIRECTED PRN PRN Reason: Hypoglycemia Diltiazem HCl (Cardizem Cd) 240 mg PO DAILY [facility] Last Admin: 02/12/17 09:04 Dose: 240 mg Docusate Sodium (Colace) 100 mg PO BID PRN PRN Reason: Constipation Last Admin: 02/11/17 18:09 Dose: 100 mg Enoxaparin Sodium (Lovenox) 70 mg SUBCUT Q12H [facility] Last Admin: 02/12/17 05:18 Dose: 70 mg Furosemide (Lasix) 40 mg PO DAILY [facility] Last Admin: 02/12/17 09:05 Dose: 40 mg Insulin Aspart (Novolog) 0 unit SUBCUT ASDIRECTED [facility] PRN Reason: Protocol Last Admin: 02/11/17 21:24 Dose: 1 unit Levetiracetam (Keppra) 1,500 mg PO BID [facility] Last Admin: 02/12/17 09:05 Dose: 1,500 mg Lisinopril (Prinivil) 5 mg PO DAILY [facility] Last Admin: 02/12/17 09:06 Dose: 5 mg Magnesium Hydroxide (Milk Of Magnesia) 30 ml PO Q12H PRN PRN Reason: Constipation Metformin [facility] ([facility]) [facility] Last Admin: 02/12/17 07:42 Dose: 1,000 mg Ondansetron HCl (Zofran) 4 mg IV Q4H PRN PRN Reason: Nausea/Vomiting Oxycodone HCl (Oxycodone) 5 mg PO Q4H PRN PRN Reason: Pain (moderate 4-6) Last Admin: 02/12/17 07:55 Dose: 5 mg Polyethylene Glycol (Miralax) 17 gm PO DAILY PRN PRN Reason: Constipation Sodium Chloride (Saline Flush) 10 ml FLUSH ASDIRECTED PRN PRN Reason: Keep Vein Open Tramadol HCl (Ultram) 50 mg PO Q6H [facility] Last Admin: 02/12/17 05:20 Dose: 50 mg Discontinued Medications Bupivacaine HCl/Epinephrine Bitart (Marcaine 0.5%/Epinephrine 1:200,000) Confirm Administered Dose 50 ml .ROUTE .STK-MED ONE Stop: 02/10/17 09:42 Last Admin: 02/10/17 09:48 Dose: 30 ml Diltiazem HCl (Diltiazem) 20 mg IVPUSH ONETIME ONE Stop: 02/10/17 13:51 Last Admin: 02/10/17 13:56 Dose: 20 mg Diltiazem HCl (Cardizem) 60 mg PO Q6HR NEW Last Admin: 02/12/17 05:18 Dose: 60 mg Fentanyl (Sublimaze) Confirm Administered Dose 100 mcg .ROUTE .STK-MED ONE Stop: 02/10/17 09:40 Lactated Ringer's (Ringers, Lactated) 1,000 mls @ 0 mls/hr IV ASDIRECTED NEW PRN Reason: KVO Last Admin: 02/10/17 08:24 Dose: 25 mls/hr Cefazolin Sodium 2 gm/ Sodium (Chloride) 50 mls @ 100 mls/hr IV ONETIME ONE Stop: 02/10/17 09:14 Last Admin: 02/10/17 09:30 Dose: 100 mls/hr Diltiazem HCl 100 mg/ Sodium (Chloride) 100 mls @ 5 mls/hr IV TITRATE NEW; 5 MG /HR PRN Reason: Protocol Last Admin: 02/10/17 13:58 Dose: 5 mg/hr, 5 mls/hr Magnesium Sulfate 2 gm/ Premix 50 mls @ 25 mls/hr IV Q6H NEW Stop: 02/11/17 05:59 Last Admin: 02/11/17 05:00 Dose: 25 mls/hr Oxycodone HCl (Oxycodone) 5 mg PO ONETIME ONE Stop: 02/10/17 12:12 Last Admin: 02/10/17 12:19 Dose: 5 mg Povidone Iodine (Betadine 10% Soln) Confirm Administered Dose 1 ml .ROUTE .STK- MED ONE Stop: 02/10/17 09:40 Last Admin: 02/10/17 09:50 Dose: 1 ml Propofol (Diprivan 20 Ml) Confirm Administered Dose 200 mg .ROUTE .STK-MED ONE Stop: 02/10/17 09:40 Warfarin Sodium (Coumadin) 7.5 mg PO ONETIME ONE Stop: 02/10/17 15:01 Last Admin: 02/10/17 15:31 Dose: 7.5 mg Warfarin Sodium (Coumadin) 7.5 mg PO ONETIME ONE Stop: 02/11/17 13:01 Last Admin: 02/11/17 14:13 Dose: 7.5 mg Warfarin Sodium (Coumadin) 7.6 mg PO ONETIME ONE Stop: 02/12/17 08:14 Warfarin Sodium (Coumadin) 7.5 mg PO ONETIME ONE Stop: 02/12/17 09:31 Last Admin: 02/12/17 09:06 Dose: 7.5 mg *Q Meaningful Use (DIS) - VTE *Q VTE Criteria *Q: VTE Pharmacological Contraindications *Q: High INR Value - Stroke *Q Stroke Criteria *Q: - AMI *Q AMI Criteria *Q:
[2017-02-12 11:54] VITALS: BP 121/66
== END 2017-02-12 13:28 | disposition other institution (70) | DRG 563 ==
LOC: JP.SDS 07:10 → EDSTATUS 08:45 → JP.ICU 12:47 → UNDOADMOB 12:47 → OBSVTOIN 13:39 → JP.ICU 13:39
PROVIDERS: ADMIT Hospitalist; ATTEND Hospitalist
PROC: 0QSGXZZ Reposition Right Tibia, External Approach (ICD-10-PCS; principal; 2017-02-10)
PROC: 0QSJXZZ Reposition Right Fibula, External Approach (ICD-10-PCS; principal; 2017-02-10)
DX: S82.841A Displaced bimalleolar fracture of right lower leg, initial encounter for closed fracture (principal); I48.91 Unspecified atrial fibrillation; I48.2 Chronic atrial fibrillation; E11.8 Type 2 diabetes mellitus with unspecified complications; G40.909 Epilepsy, unspecified, not intractable, without status epilepticus; W19.XXXA Unspecified fall, initial encounter; Z79.01 Long term (current) use of anticoagulants; I25.10 Atherosclerotic heart disease of native coronary artery without angina pectoris; I25.2 Old myocardial infarction; Z95.5 Presence of coronary angioplasty implant and graft; Z95.1 Presence of aortocoronary bypass graft; S82.841K Displaced bimalleolar fracture of right lower leg, subsequent encounter for closed fracture with nonunion
CPT/HCPCS: 27810; 36415; 73610 ×2; 76000; 80053; 83735; 85027; 85610; 93005; 93010; A9270 ×2; J0690; J2704; J3010; J7050; J7120; 80048; 82962; 97162-GP; 97530-GP; J1650; J3475; J3490; J7030

== ENCOUNTER 2017-03-24 08:50 | Emergency (ER) | payer MEDICARE ==
[2017-03-24] MEDS ORDERED: Sodium Chloride 0.9% 500 ML IV ONE (09:23)
--- NOTE | 2017-03-24 09:30 | EDM.PDOC ---
ED HPI GENERAL MEDICAL PROBLEM - General Chief Complaint: General Stated Complaint: MEDIATION PROBLEM Time Seen by Provider: 03/24/17 09:26 Source of Information: Reports: Patient, Family, Residential Records History Limitations: Reports: No Limitations - History of Present Illness INITIAL COMMENTS - FREE TEXT/NARRATIVE: pt was given the wrong meds this am. The only thing that was different is that she received isosorbide 30mg. extra lasix 40mg and eplereone 50mg. The other meds were the same. Onset: Today, Other ( she did receive them at 8 thirty. ) Duration: Hour(s): Associated Symptoms: Reports: Other (pt took the wrong meds. ) Denies Pain Score (Numeric/FACES): 0 - Related Data Allergies Allergy/AdvReac Type Severity Reaction Status Date / Time Yazmzft-Lmo-Tys Reductase AdvReac Muscle Verified 02/04/17 06:56 Inhibitor Aches Home Meds: Home Meds Aspirin [Leigha Chewable Aspirin] 81 mg PO DAILY 09/04/13 [History] Furosemide [Lasix] 40 mg PO DAILY 09/04/13 [History] Lisinopril [Prinivil] 5 mg PO DAILY 09/04/13 [History] Warfarin [Coumadin] 5 mg PO SUTUWETHSA 09/04/13 [History] Warfarin [Coumadin] 6 mg PO MOFR 10/17/14 [History] levETIRAcetam [Levetiracetam] 1,500 mg PO BID 10/17/14 [History] metFORMIN [Glucophage XR] 1,000 mg PO BIDMEALS 10/17/14 [History] Bacitracin/Neomycin/Polymyxin [Neosporin Oint] 1 applic TOP ASDIRECTED PRN 05/24 [History] Calcium Carbonate [Tums] 2 tab PO Q6H PRN 05/24/16 [History] guaiFENesin [Robitussin] 10 ml PO ASDIRECTED PRN 05/24/16 [History] glipiZIDE [Glucotrol] 5 mg PO BID 11/06/16 [History] Clopidogrel [Plavix] 1 tab PO DAILY 02/04/17 [History] Hydrocortisone [Hydrocortisone 1% Crm] 1 dose TOP TID PRN 02/04/17 [History] Loperamide [Imodium] 2 cap PO ASDIRECTED PRN 02/04/17 [History] Magnesium Hydroxide [Milk of Magnesia] 30 ml PO ASDIRECTED PRN 02/04/17 [History ] Menthol/Methyl Salicylate [Icy Hot] 1 dose TOP ASDIRECTED PRN 02/04/17 [History] Phenol [Cepastat] 1 dose PO ASDIRECTED 02/04/17 [History] atorvaSTATin Calcium [Atorvastatin Calcium] 1 tab PO DAILY 02/04/17 [History] diphenhydrAMINE [Benadryl] 1 tab PO Q4H PRN 02/04/17 [History] Acetaminophen [Acetaminophen Extra Strength] 1,000 mg PO TID #90 tablet [Rx] Carvedilol [Coreg] 25 mg PO BID 02/05/17 [History] Diltiazem HCl [Diltiazem 24Hr Cd] 240 mg PO DAILY #30 cap.er.24h 02/12/17 [Rx] oxyCODONE 5 mg PO Q4H PRN #30 tablet 02/12/17 [Rx] Past Medical History HEENT History: Reports: Impaired Vision Other HEENT History: wears glasses Cardiovascular History: Reports: Afib, Bypass, CAD, Hypertension, [place], Stents, Other (See Below) Other Cardiovascular History: Edema Respiratory History: Reports: Pneumonia, Recurrent Gastrointestinal History: Reports: Chronic Constipation, GI Bleed Genitourinary History: Reports: Urinary Incontinence 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 Endocrine/Metabolic History: Reports: Diabetes, Type II, Obesity/BMI 30+ Dermatologic History: Reports: Other (See Below) Other Dermatologic History: actinic keratosis, seorrheic keratosis - Infectious Disease History Infectious Disease History: Reports: Chicken Pox Other Infectious Disease History: unknown - Past Surgical History HEENT Surgical History: Reports: None Cardiovascular Surgical History: Reports: Coronary Artery Bypass, Coronary Artery Stent Respiratory Surgical History: Reports: None GI Surgical History: Reports: Colonoscopy Female Surgical History: Reports: None Endocrine Surgical History: Reports: None Neurological Surgical History: Reports: None Dermatological Surgical History: Reports: None Social & Family History - Tobacco Use Smoking Status *Q: Never Smoker Second Hand Smoke Exposure: No - Caffeine Use Caffeine Use: Reports: Coffee - Alcohol Use Days Per Week of Alcohol Use: 0 - Recreational Drug Use Recreational Drug Use: No ED ROS GENERAL - Review of Systems Review Of Systems: See Below Constitutional: Reports: No Symptoms HEENT: Reports: No Symptoms Respiratory: Reports: No Symptoms Cardiovascular: Reports: No Symptoms Endocrine: Reports: No Symptoms GI/Abdominal: Reports: No Symptoms : Reports: No Symptoms Musculoskeletal: Reports: Other (pt has pain in her left heel. ) Skin: Reports: No Symptoms ED EXAM, GENERAL - Physical Exam Exam: See Below Free Text/Narrative:: pt was given someone elses meds. As this was analized she got eplereone 50 mg, extra lasix 40mg and a multivit. extra. her bp was good on arrival. She was putting out alot of fluid, . For that reason she was given an extra 500cc of fluid while here. She was monitored in terms of her bp. Exam Limited By: No Limitations General Appearance: Alert, Other (pt was complaining of pain in her left heel. her pupils were equal and reactive. ) Ears: Normal TMs Nose: Normal Inspection Throat/Mouth: Normal Inspection Head: Atraumatic Neck: Normal Inspection Respiratory/Chest: No Respiratory Distress Cardiovascular: Regular Rate, Rhythm GI/Abdominal: Soft, Non-Tender (Female) Exam: Deferred Rectal (Female) Exam: Deferred Back Exam: Normal Inspection Extremities: Other ( pt has a boot on her rt ankle and has an appt tomorrow for follow up. She is complaining of pain in her left heel. An xray was obtained of her left heel. ) Neurological: Alert, Oriented Psychiatric: Normal Affect Course - Vital Signs Last Recorded V/S: Last Vital Signs Temp 36.4 C 03/24/17 11:16 Pulse 87 03/24/17 11:16 Resp 16 03/24/17 11:16 BP 120/84 03/24/17 11:16 Pulse Ox 94 L 03/24/17 11:16 - Orders/Labs/Meds Labs: Laboratory Tests 03/24/17 03/24/17 Range/Units 09:35 09:35 WBC 11.6 H (4.5-11.0) K/uL RBC 4.87 (3.30-5.50) M/uL Hgb 13.7 (12.0-15.0) g/dL Hct 42.0 (36.0-48.0) % MCV 86 (80-98) fL MCH 28 (27-31) pg MCHC 33 (32-36) % Plt Count 405 H (150-400) K/uL Neut % (Auto) 73 H (36-66) % Lymph % (Auto) 18 L (24-44) % [place] % (Auto) 7 H (2-6) % Eos % (Auto) 2 (2-4) % Baso % (Auto) 1 (0-1) % Sodium 135 L (140-148) mmol/L Potassium 4.3 (3.6-5.2) mmol/L Chloride 97 L (100-108) mmol/L Carbon Dioxide 29 (21-32) mmol/L Anion Gap 13.3 (5.0-14.0) mmol/L BUN 12 (7-18) mg/dL Creatinine 0.7 (0.6-1.0) mg/dL Est Cr Clr Drug Dosing 56.43 mL/min Estimated GFR (MDRD) > 60 (>60) Glucose 115 H (74-106) mg/dL Calcium 9.3 (8.5-10.1) mg/dL Meds: Medications Discontinued Medications Generic Name Dose Route Start Last Admin Trade Name Maribel PRN Reason Stop Dose Admin Cephalexin 500 mg 03/24/17 10:22 03/24/17 10:52 Keflex PO 03/24/17 10:23 500 mg ONETIME ONE Administration Clopidogrel Bisulfate 75 mg 03/24/17 10:20 03/24/17 10:53 Plavix PO 03/24/17 10:21 75 mg ONETIME ONE Administration Sodium Chloride 500 mls @ 250 mls/hr 03/24/17 09:23 03/24/17 09:59 Normal Saline IV 03/24/17 11:22 250 mls/hr .BOLUS ONE Administration - Re-Assessments/Exams Free Text/Narrative Re-Assessment/Exam: 03/24/17 12:01 pt maintained her bp well. She did put out a fair amount of fluid. No other symptoms were noted. Departure - Departure Time of Disposition: 12:02 Disposition: Home, Self-Care 01 Condition: Fair Clinical Impression: Medication administered in error, Heel spur - Discharge Information Instructions: Heel Spur Referrals: PCP,None [Primary Care Provider] - Forms: ED Department Discharge Care Plan Goals: keep ortho appt tomorrow. Have ortho look at the xray of left heel with a spur which is painful. Consider giving her heel cup for the spur to relieve the pain. Call if any bp problems during the day. encourage fluids today.
--- NOTE | 2017-03-24 10:18 | CR ---
Calcaneus Lt INDICATION: pain in the heel. FINDINGS: No evidence for acute fracture or cortical destruction of the calcaneus. Achilles and plant ar calcaneal spurs. Exam otherwise negative.
[2017-03-24] MEDS ORDERED: Clopidogrel 75 MG Tab PO ONE (10:20)
[2017-03-24] MEDS ORDERED: Cephalexin 250 MG Cap PO ONE (10:22)
[2017-03-24 11:17] VITALS: BP 120/84
== END 2017-03-24 12:25 | disposition home or self-care (01) ==
LOC: JP.ED 08:50
DX: T50.1X1A Poisoning by loop [high-ceiling] diuretics, accidental (unintentional), initial encounter (principal); T50.0X1A Poisoning by mineralocorticoids and their antagonists, accidental (unintentional), initial encounter; M77.32 Calcaneal spur, left foot; I25.2 Old myocardial infarction; I25.10 Atherosclerotic heart disease of native coronary artery without angina pectoris; E11.9 Type 2 diabetes mellitus without complications; E66.9 Obesity, unspecified; Z79.899 Other long term (current) drug therapy; Z79.01 Long term (current) use of anticoagulants
CPT/HCPCS: 36415; 73650; 80048; 85025; 96360; 96361; 99283; A9270; J7040

== ENCOUNTER → 2017-05-17 | Day surgery (SDC) | payer MEDICARE ==
[~2017-05-17] MED LIST: Propofol 200 MG/20 ML SDV ONE
[2017-05-17 15:51] VITALS: BP 136/97
--- NOTE | 2017-05-17 16:28 | EDM.PDOC ---
<Lisette Arteaga - Last Filed: 05/17/17 16:20> ED HPI GENERAL MEDICAL PROBLEM - General Chief Complaint: ENT Problem Stated Complaint: PAIN IN THROAT Time Seen by Provider: 05/17/17 16:20 Source of Information: Reports: Patient, [facility] Records History Limitations: Reports: No Limitations - History of Present Illness INITIAL COMMENTS - FREE TEXT/NARRATIVE: pt arrived the pt and nurse stating that she got up fine and she ate breakfast. She did do alot of coughing while she was eating. After breakfast she has been spitting and not able to get water down. She states that there is one place in the throat that hurts when she swallows. Onset: Today, Other ( this occurred after breakfast. ) Duration: Hour(s):, Other ( she has not been able to drink water all day. ) Location: Reports: Abdomen Associated Symptoms: Reports: Other ( Pt is constantlt bring up saliva and water that she drinks. ) Throat Pain Score (Numeric/FACES): 5 - Related Data Allergies Allergy/AdvReac Type Severity Reaction Status Date / Time Rrghuhv-Wpj-Inq Reductase AdvReac Muscle Verified 05/17/17 16:03 Inhibitor Aches Home Meds: Home Meds Aspirin [Leigha Chewable Aspirin] 81 mg PO DAILY 09/04/13 [History] Furosemide [Lasix] 40 mg PO DAILY 09/04/13 [History] Lisinopril [Prinivil] 5 mg PO DAILY 09/04/13 [History] Warfarin [Coumadin] 5 mg PO SUTUWETHSA 09/04/13 [History] Warfarin [Coumadin] 6 mg PO MOFR 10/17/14 [History] levETIRAcetam [Levetiracetam] 1,500 mg PO BID 10/17/14 [History] metFORMIN [Glucophage XR] 1,000 mg PO BIDMEALS 10/17/14 [History] glipiZIDE [Glucotrol] 5 mg PO BID 11/06/16 [History] Clopidogrel [Plavix] 1 tab PO DAILY 02/04/17 [History] Hydrocortisone [Hydrocortisone 1% Crm] 1 dose TOP TID PRN 02/04/17 [History] atorvaSTATin Calcium [Atorvastatin Calcium] 1 tab PO DAILY 02/04/17 [History] Acetaminophen [Acetaminophen Extra Strength] 1,000 mg PO TID #90 tablet [Rx] Carvedilol [Coreg] 25 mg PO BID 02/05/17 [History] Diltiazem HCl [Diltiazem 24Hr Cd] 240 mg PO DAILY #30 cap.er.24h 02/12/17 [Rx] Past Medical History HEENT History: Reports: Impaired Vision Other HEENT History: wears glasses Cardiovascular History: Reports: Afib, Bypass, CAD, Hypertension, CT, Stents, Other (See Below) Other Cardiovascular History: Edema Respiratory History: Reports: Pneumonia, Recurrent Gastrointestinal History: Reports: Chronic Constipation, GI Bleed Genitourinary History: Reports: Urinary Incontinence 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 Endocrine/Metabolic History: Reports: Diabetes, Type II, Obesity/BMI 30+ Dermatologic History: Reports: Other (See Below) Other Dermatologic History: actinic keratosis, seorrheic keratosis - Infectious Disease History Infectious Disease History: Reports: Chicken Pox Other Infectious Disease History: unknown - Past Surgical History HEENT Surgical History: Reports: None Cardiovascular Surgical History: Reports: Coronary Artery Bypass, Coronary Artery Stent GI Surgical History: Reports: Colonoscopy Social & Family History - Tobacco Use Smoking Status *Q: Never Smoker Second Hand Smoke Exposure: No - Caffeine Use Caffeine Use: Reports: Coffee - Alcohol Use Days Per Week of Alcohol Use: 0 - Recreational Drug Use Recreational Drug Use: No ED ROS ENT - Review of Systems Review Of Systems: See Below Constitutional: Reports: No Symptoms HEENT: Reports: Other (pt is not able to get fluids down. ) Respiratory: Reports: No Symptoms Cardiovascular: Reports: No Symptoms Endocrine: Reports: No Symptoms GI/Abdominal: Reports: Other ( spitting up fluid. ) : Reports: No Symptoms Musculoskeletal: Reports: No Symptoms Skin: Reports: No Symptoms Neurological: Reports: No Symptoms ED EXAM, ENT - Physical Exam Exam: See Below Text/Narrative:: pt arrived with a history of not getting fluids down. She did drink some water here and she spit that up/ This is not short of breath. Exam Limited By: No Limitations General Appearance: Alert, Anxious, Mild Distress Ears: Normal TMs Nose: Normal Inspection Mouth/Throat: Normal Inspection, Other (pt is spitting saliva) Head: Atraumatic Neck: Normal Inspection Respiratory/Chest: No Respiratory Distress Cardiovascular: Normal Peripheral Pulses GI/Abdominal: Soft, Non-Tender Rectal (Female) Exam: Deferred Back: Normal Inspection Extremities: Normal Inspection Neurological: Alert, Oriented, Normal Cognition Psychiatric: Anxious Course - Vital Signs Last Recorded V/S: Last Vital Signs Temp 96.6 F 05/17/17 15:50 Pulse 93 05/17/17 15:50 Resp 18 05/17/17 15:50 BP 136/97 H 05/17/17 15:50 Pulse Ox 97 05/17/17 15:50 - Orders/Labs/Meds Orders: Active Orders 24 hr Category Date Time Status REINIER TEST [RM] Routine Lab 05/17/17 21:00 Ordered Labs: Laboratory Tests 05/17/17 05/17/17 Range/Units 16:18 16:30 WBC 8.4 (4.5-11.0) K/uL RBC 4.41 (3.30-5.50) M/uL Hgb 12.7 (12.0-15.0) g/dL Hct 39.2 (36.0-48.0) % MCV 89 (80-98) fL MCH 29 (27-31) pg MCHC 32 (32-36) % Plt Count 336 (150-400) K/uL Neut % (Auto) 61 (36-66) % Lymph % (Auto) 27 (24-44) % Coleman % (Auto) 9 H (2-6) % Eos % (Auto) 3 (2-4) % Baso % (Auto) 0 (0-1) % Sodium 142 (140-148) mmol/L Potassium 3.6 (3.6-5.2) mmol/L Chloride 102 (100-108) mmol/L Carbon Dioxide 29 (21-32) mmol/L Anion Gap 10.6 (5.0-14.0) mmol/L BUN 12 (7-18) mg/dL Creatinine 0.7 (0.6-1.0) mg/dL Est Cr Clr Drug Dosing 59.15 mL/min Estimated GFR (MDRD) > 60 (>60) Glucose 97 (74-106) mg/dL Calcium 9.3 (8.5-10.1) mg/dL Meds: Medications Discontinued Medications Generic Name Dose Route Start Last Admin Trade Name Maribel PRN Reason Stop Dose Admin Propofol Confirm 05/17/17 20:28 Diprivan 20 Ml Administered 05/17/17 20:29 Dose 200 mg .ROUTE .STK-MED ONE Departure - Departure Disposition: Home, Self-Care 01 Clinical Impression: Esophagus, foreign body Qualifiers: Encounter type: initial encounter Qualified Code(s): T18.108A - Unspecified foreign body in esophagus causing other injury, initial encounter - Discharge Information <Javier Christine - Last Filed: 05/17/17 22:01> Course - Re-Assessments/Exams Free Text/Narrative Re-Assessment/Exam: 05/17/17 21:45 Patient seen and evaluated by Dr. Arteaga. Dr. Carreno consulted for an EGD. Patient did well postoperatively, she was discharged with instructions to follow per . Departure - Departure Time of Disposition: 21:58 Condition: Good
--- NOTE | 2017-05-18 07:50 | OR ---
DATE OF PROCEDURE: 05/17/2017 PREOPERATIVE DIAGNOSIS: Dysphagia, possible obstructing esophageal foreign body. POSTOPERATIVE DIAGNOSES: Mid to distal esophageal circumferential irritation, hiatal hernia, antral gastritis. PROCEDURE: Esophagogastroduodenoscopy with biopsy of antrum for CLOtest and for pathology to look for Helicobacter pylori, biopsy of mid to distal esophageal irritation. ANESTHESIA: IV anesthesia with monitored anesthesia care. INDICATION: This 71-year-old white female is in a correction. She was having trouble swallowing. She had apparently sausage and pancakes for breakfast and could not or would not eat after that. She came into the emergency room. Dr. Arteaga saw her and requested upper endoscopy to evaluate for possible obstructing esophageal foreign body. Informed consent was obtained from her guardian. DESCRIPTION OF PROCEDURE: The patient was placed in the left lateral decubitus position. IV anesthesia was administered by the anesthesia service. Time-out was held. The flexible video Olympus upper endoscope was passed through her mouth, down her esophagus, and into her stomach. There was no obstructing lesion. There was a fairly short area of the esophagus, which was in the distal to mid esophagus, which was quite inflamed. The scope was passed down to the pylorus and through the pylorus into the duodenum, reaching its third portion. The scope was then slowly withdrawn, examining the mucosa throughout. The duodenal mucosa appeared unremarkable. The scope was brought up through the pylorus. There was erythema and red streaking emanating from the pylorus, consistent with gastritis. We obtained gastric biopsies for CLOtest and for pathology to look for Helicobacter pylori. The scope was retroflexed. The proximal stomach appeared unremarkable. We did note a hiatal hernia on going in, but it was not evident when retroflexing. The scope was straightened and brought up through the hiatal hernia. The GE junction appeared fine. As we went up more proximally into the esophagus, the short segment of the irritation was encountered. We did biopsy this area. The scope was then brought more proximally above this, which otherwise appeared unremarkable, and it was removed. She tolerated the procedure well. Eliu Carreno MD /[id number] [facility]
== END ==
LOC: JP.ED 15:37 → JP.SDS 17:57
PROVIDERS: ATTEND Surgery
DX: K29.50 Unspecified chronic gastritis without bleeding (principal); K44.9 Diaphragmatic hernia without obstruction or gangrene; I25.10 Atherosclerotic heart disease of native coronary artery without angina pectoris; I10 Essential (primary) hypertension; K59.09 Other constipation; J18.9 Pneumonia, unspecified organism; E11.9 Type 2 diabetes mellitus without complications; F41.9 Anxiety disorder, unspecified; E66.9 Obesity, unspecified; Z68.30 Body mass index [BMI] 30.0-30.9, adult; Z88.8 Allergy status to other drugs, medicaments and biological substances; Z79.82 Long term (current) use of aspirin; Z79.899 Other long term (current) drug therapy; Z95.5 Presence of coronary angioplasty implant and graft
CPT/HCPCS: 36415; 43239; 80048; 85025; 87081; 88305; 88312; 99284; J2704; 99283

== ENCOUNTER 2017-06-06 23:41 | Emergency (ER) | payer MEDICARE ==
[2017-06-06 23:53] VITALS: BP 114/61
--- NOTE | 2017-06-07 00:11 | EDM.PDOC ---
ED HPI GENERAL MEDICAL PROBLEM - General Chief Complaint: Chest Pain Stated Complaint: MEDICAL VIA TRI Time Seen by Provider: 06/07/17 00:00 Source of Information: Reports: Patient, EMS History Limitations: Reports: No Limitations - History of Present Illness INITIAL COMMENTS - FREE TEXT/NARRATIVE: 71-year-old female with known coronary artery disease, anticoagulated on warfarin and also chronic atrial fibrillation was in bed tonight, felt restless and rolling around and developed pain in her chest on her left side. There was some discomfort with breathing so she mentioned to the nurses. She was not short of breath or diaphoretic. They gave her some Tylenol, the pain resolved but they called the ambulance to transfer her here. She was stable and had no symptoms from the time she left, during transport, and currently here in the emergency room. She feels fine. Onset: Unknown/Unsure Location: Reports: Chest (Left side under her arm) Quality: Reports: Ache Severity: Mild Worsens with: Reports: Breathing, Movement Associated Symptoms: Reports: No Other Symptoms - Related Data Allergies Allergy/AdvReac Type Severity Reaction Status Date / Time Jiqqoit-Wbp-Wsh Reductase AdvReac Muscle Verified 05/17/17 16:03 Inhibitor Aches Home Meds: Home Meds Aspirin [Leigha Chewable Aspirin] 81 mg PO DAILY 09/04/13 [History] Furosemide [Lasix] 40 mg PO DAILY 09/04/13 [History] Lisinopril [Prinivil] 5 mg PO DAILY 09/04/13 [History] Warfarin [Coumadin] 5 mg PO SUTUWETHSA 09/04/13 [History] Warfarin [Coumadin] 6 mg PO MOFR 10/17/14 [History] levETIRAcetam [Levetiracetam] 1,500 mg PO BID 10/17/14 [History] metFORMIN [Glucophage XR] 1,000 mg PO BIDMEALS 10/17/14 [History] glipiZIDE [Glucotrol] 5 mg PO BID 11/06/16 [History] Clopidogrel [Plavix] 75 mg PO DAILY 02/04/17 [History] Hydrocortisone [Hydrocortisone 1% Crm] 1 dose TOP TID PRN 02/04/17 [History] atorvaSTATin Calcium [Atorvastatin Calcium] 80 mg PO BEDTIME 02/04/17 [History] Acetaminophen [Acetaminophen Extra Strength] 1,000 mg PO TID #90 tablet [Rx] Carvedilol [Coreg] 25 mg PO BID 02/05/17 [History] Acetaminophen 325 mg PO ASDIRECTED PRN 06/07/17 [History] Calcium Carbonate [Tums] 400 mg PO ASDIRECTED PRN 06/07/17 [History] Codeine/guaiFENesin [guaiFENesin-Codeine Syrup] 10 ml PO Q4H PRN 06/07/17 [ History] Diltiazem HCl [Diltiazem 24Hr Cd] 240 mg PO BEDTIME 06/07/17 [History] Glycerin [Glycerin Laxative] 5.6 gm RC ASDIRECTED PRN 06/07/17 [History] Loperamide HCl [Imodium A-D] 2 mg PO ASDIRECTED PRN 06/07/17 [History] Magnesium Hydroxide [Milk of Magnesia] 30 ml PO ASDIRECTED PRN 06/07/17 [History ] Methyl Salicylate/Menthol [Icy Hot] 35.4 gm TP ASDIRECTED PRN 06/07/17 [History] Neomycin Gonzalez/Bacitrac Zn/Poly [Neosporin Antibiotic Ointment] 1 applic TP ASDIRECTED PRN 06/07/17 [History] Phenol [Cepastat] 1 lozenge PO ASDIRECTED PRN 06/07/17 [History] diphenhydrAMINE [Benadryl] 25 mg PO Q4H PRN 06/07/17 [History] oxyCODONE HCl [Oxycodone HCl] 5 mg PO ASDIRECTED PRN 06/07/17 [History] Past Medical History HEENT History: Reports: Impaired Vision Other HEENT History: wears glasses Cardiovascular History: Reports: Afib, Bypass, CAD, Hypertension, [place], Stents, Other (See Below) Other Cardiovascular History: Edema Respiratory History: Reports: Pneumonia, Recurrent Gastrointestinal History: Reports: Chronic Constipation, GI Bleed Genitourinary History: Reports: Urinary Incontinence 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 Endocrine/Metabolic History: Reports: Diabetes, Type II, Obesity/BMI 30+ Dermatologic History: Reports: Other (See Below) Other Dermatologic History: actinic keratosis, seorrheic keratosis - Infectious Disease History Infectious Disease History: Reports: Chicken Pox Other Infectious Disease History: unknown - Past Surgical History HEENT Surgical History: Reports: None Cardiovascular Surgical History: Reports: Coronary Artery Bypass, Coronary Artery Stent GI Surgical History: Reports: Colonoscopy Dermatological Surgical History: Reports: Skin Biopsy Social & Family History - Tobacco Use Smoking Status *Q: Never Smoker Second Hand Smoke Exposure: No - Caffeine Use Caffeine Use: Reports: Coffee - Alcohol Use Days Per Week of Alcohol Use: 0 - Recreational Drug Use Recreational Drug Use: No ED ROS GENERAL - Review of Systems Review Of Systems: See Below Constitutional: Denies: Fever, Chills Respiratory: Reports: Cough (Occasional cough over the past few weeks) Cardiovascular: Reports: Chest Pain GI/Abdominal: Denies: Abdominal Pain, Nausea, Vomiting Skin: Reports: Other (Recent biopsy in the left elbow) Neurological: Denies: Headache ED EXAM, GENERAL - Physical Exam Exam: See Below Exam Limited By: No Limitations General Appearance: Alert, No Apparent Distress Respiratory/Chest: No Respiratory Distress, Lungs Clear Cardiovascular: Irregularly Irregular GI/Abdominal: Non-Tender Extremities: No: Pedal Edema Neurological: Alert Skin Exam: Warm, Dry EKG INTERPRETATION Rhythm: A-Fib Course - Vital Signs Last Recorded V/S: Last Vital Signs Temp 95.9 F 06/06/17 23:55 Pulse Resp 18 06/06/17 23:55 BP 114/61 06/06/17 23:55 Pulse Ox 95 06/06/17 23:55 - Orders/Labs/Meds Labs: Laboratory Tests 06/07/17 Range/Units 00:11 Troponin I < 0.017 (0.000-0.056) ng/mL - Re-Assessments/Exams Free Text/Narrative Re-Assessment/Exam: 06/07/17 00:11 EKG showed atrial fibrillation without ST changes. A troponin was drawn. 06/07/17 00:42 Patient remained asymptomatic in the emergency room, troponin was negative. A family member was willing to take her back home. Departure - Departure Time of Disposition: 01:11 Disposition: DC/Tfer to Densit[facility] 64 Condition: Good Clinical Impression: Atypical chest pain - Discharge Information Instructions: Nonspecific Chest Pain, [id number] Referrals: PCP,None [Primary Care Provider] - Forms: ED Department Discharge Care Plan Goals: Continue with current medications, activity as tolerated.
== END 2017-06-07 01:11 ==
LOC: JP.ED 23:41
DX: R07.89 Other chest pain (principal); I10 Essential (primary) hypertension; I25.10 Atherosclerotic heart disease of native coronary artery without angina pectoris; E11.42 Type 2 diabetes mellitus with diabetic polyneuropathy; Z79.01 Long term (current) use of anticoagulants; Z79.02 Long term (current) use of antithrombotics/antiplatelets; Z79.82 Long term (current) use of aspirin; Z79.84 Long term (current) use of oral hypoglycemic drugs; Z79.899 Other long term (current) drug therapy; Z95.5 Presence of coronary angioplasty implant and graft; Z95.1 Presence of aortocoronary bypass graft
CPT/HCPCS: 36415; 84484; 93005; 93010; 99284; 99285-25

== ENCOUNTER 2020-05-29 22:24 | Emergency (ER) | payer MEDICARE ==
--- NOTE | 2020-05-29 22:51 | EDM.PDOC ---
ED HPI GENERAL MEDICAL PROBLEM - General Chief Complaint: Respiratory Problem Stated Complaint: CHEST PAIN [place]IA [place] Time Seen by Provider: 05/29/20 22:40 Source of Information: Reports: Patient, EMS, Penitentiary Records History Limitations: Reports: No Limitations - History of Present Illness INITIAL COMMENTS - FREE TEXT/NARRATIVE: 74-year-old female sent in from a alf for evaluation for recurring chest pain. She is known Covid positive, and is getting somewhat more short of breath and needing more oxygen as well. She was living in an assisted living situation but moved to [facility] when she became Covid positive several days ago. The patient herself says this chest pain is recurring and chronic but according to the staff it seemed more persistent and new. Her respiratory rate is slowly rising and O2 sats are lower than baseline. She is afebrile. Onset: Gradual Duration: Day(s): (Seems to be worsening over the last several days, chest pain was present just today) Location: Reports: Chest (Patient points to just left of the sternum) Associated Symptoms: Reports: Cough, Malaise, Shortness of Breath, Weakness. Denies: Fever/Chills denies Pain Score (Numeric/FACES): 0 - Related Data Allergies Allergy/AdvReac Type Severity Reaction Status Date / Time [id number] Reductase AdvReac Muscle Verified 05/29/20 22:31 Inhibitor Aches Home Meds: Home Meds Aspirin [Leigha Chewable Aspirin] 81 mg PO DAILY 09/04/13 [History] Furosemide [Lasix] 40 mg PO DAILY 09/04/13 [History] lisinopriL [Prinivil] 5 mg PO DAILY 09/04/13 [History] Warfarin [Coumadin] 2.5 mg PO ASDIRECTED 10/17/14 [History] levETIRAcetam [Levetiracetam] 750 mg PO BID 10/17/14 [History] metFORMIN [Glucophage XR] 1,000 mg PO BIDMEALS 10/17/14 [History] glipiZIDE [Glucotrol] 5 mg PO BID 11/06/16 [History] Hydrocortisone [Hydrocortisone 1% Crm] 1 dose TOP TID PRN 02/04/17 [History] atorvaSTATin Calcium [Atorvastatin Calcium] 80 mg PO BEDTIME 02/04/17 [History] carvediloL [Coreg] 25 mg PO BID 02/05/17 [History] Acetaminophen 325 mg PO ASDIRECTED PRN 06/07/17 [History] Calcium Carbonate [Tums] 400 mg PO ASDIRECTED PRN 06/07/17 [History] Codeine/guaiFENesin [guaiFENesin-Codeine Syrup] 10 ml PO Q4H PRN 06/07/17 [History] Diltiazem HCl [Diltiazem 24Hr Cd] 240 mg PO BEDTIME 06/07/17 [History] Glycerin [Glycerin Laxative] 5.6 gm RC ASDIRECTED PRN 06/07/17 [History] Loperamide HCl [Imodium A-D] 2 mg PO ASDIRECTED PRN 06/07/17 [History] Methyl Salicylate/Menthol [Icy Hot] 35.4 gm TP ASDIRECTED PRN 06/07/17 [History] Neomycin Gonzalez/Bacitrac Zn/Poly [Neosporin Antibiotic Ointment] 1 applic TP ASDIRECTED PRN 06/07/17 [History] Phenol [Cepastat] 1 lozenge PO ASDIRECTED PRN 06/07/17 [History] Acetaminophen [Acetaminophen Extra Strength] 1,000 mg PO TID PRN 05/29/20 [History] Ascorbate Calcium [Vitamin C] 500 mg PO DAILY 05/29/20 [History] Budesonide [Pulmicort] 0.5 mg IH BID 05/29/20 [History] Cholecalciferol (Vitamin D3) [Vitamin D3] 2,000 unit PO BID 05/29/20 [History] Famotidine [Pepcid] 40 mg PO DAILY 05/29/20 [History] Ibuprofen 400 mg PO Q6H PRN 05/29/20 [History] Ipratropium/Albuterol Sulfate [Iprat-Albut 0.5-3(2.5) mg/3 ml] 3 ml IH Q4H PRN 05/29/20 [History] L.acidoph,Paracasei, B.lactis [Probiotic] 1 each PO DAILY 05/29/20 [History] Zinc 50 mg PO DAILY 05/29/20 [History] dexAMETHasone [Dexamethasone] 6 mg PO DAILY 05/29/20 [History] Past Medical History HEENT History: Reports: Impaired Vision Other HEENT History: wears glasses Cardiovascular History: Reports: Afib, Bypass, CAD, Hypertension, FL, Stents, Other (See Below) Other Cardiovascular History: Edema Respiratory History: Reports: Pneumonia, Recurrent, Other (See Below) Other Respiratory History: positive covid Gastrointestinal History: Reports: Chronic Constipation, GI Bleed Genitourinary History: Reports: Urinary Incontinence 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 Endocrine/Metabolic History: Reports: Diabetes, Type II, Obesity/BMI 30+ Dermatologic History: Reports: Other (See Below) Other Dermatologic History: actinic keratosis, seorrheic keratosis - Infectious Disease History Infectious Disease History: Reports: Chicken Pox Other Infectious Disease History: unknown covid positive - Past Surgical History HEENT Surgical History: Reports: None Cardiovascular Surgical History: Reports: Coronary Artery Bypass, Coronary Artery Stent Respiratory Surgical History: Reports: None GI Surgical History: Reports: Colonoscopy Female Surgical History: Reports: None Endocrine Surgical History: Reports: None Neurological Surgical History: Reports: None Dermatological Surgical History: Reports: Skin Biopsy Social & Family History - Caffeine Use Caffeine Use: Reports: Coffee ED ROS GENERAL - Review of Systems Review Of Systems: See Below Constitutional: Reports: Malaise, Decreased Appetite. Denies: Fever, Chills Respiratory: Reports: Shortness of Breath, Cough Cardiovascular: Reports: Chest Pain. Denies: Palpitations GI/Abdominal: Denies: Nausea, Vomiting Skin: Reports: No Symptoms Neurological: Reports: Confusion, Weakness ED EXAM, GENERAL - Physical Exam Exam: See Below Exam Limited By: No Limitations General Appearance: Alert, No Apparent Distress, Other (Patient appears comfortable) Eye Exam: Bilateral Eye: Normal Inspection Respiratory/Chest: No Respiratory Distress, Wheezing (A few scattered expiratory wheezes, otherwise good air movement) Cardiovascular: Irregularly Irregular, Other (Occasional tachycardia) GI/Abdominal: Soft, Non-Tender Extremities: Other (Symmetric 1+ edema bilaterally) Neurological: Alert. No: Oriented (Disoriented to time and place) Psychiatric: Normal Affect, Normal Mood Skin Exam: Warm, Dry Course - Vital Signs Last Recorded V/S: Last Vital Signs Temp 97.8 F 05/30/20 01:49 Pulse 117 H 05/30/20 01:49 Resp 25 H 05/30/20 01:49 BP 118/59 L 05/30/20 01:49 Pulse Ox 95 05/30/20 01:49 - Orders/Labs/Meds Orders: Active Orders 24 hr Category Date Time Status Chest 1V Frontal [CR] Stat Exams 05/29/20 22:50 Taken CORONAVIRUS COVID-19 RAPID [MOLEC] Routine Lab 05/30/20 00:12 Received Labs: Laboratory Tests 05/29/20 05/29/20 Range/Units 23:05 23:05 WBC 5.8 (4.5-11.0) K/uL RBC 3.88 (3.30-5.50) M/uL Hgb 11.6 L (12.0-15.0) g/dL Hct 34.8 L (36.0-48.0) % MCV 90 (80-98) fL MCH 30 (27-31) pg MCHC 33 (32-36) % Plt Count 205 (150-400) K/uL Neut % (Auto) 82 H (36-66) % Lymph % (Auto) 11 L (24-44) % [place] % (Auto) 7 H (2-6) % Eos % (Auto) 0 L (2-4) % Baso % (Auto) 1 (0-1) % Sodium 129 L (140-148) mmol/L Potassium 3.0 L (3.6-5.2) mmol/L Chloride 93 L (100-108) mmol/L Carbon Dioxide 26 (21-32) mmol/L Anion Gap 13.0 (5.0-14.0) mmol/L BUN 18 (7-18) mg/dL Creatinine 0.9 (0.6-1.0) mg/dL Est Cr Clr Drug Dosing TNP Estimated GFR (MDRD) > 60 (>60) Glucose 158 H (74-106) mg/dL Calcium 8.0 L (8.5-10.1) mg/dL Troponin I 0.353 H* (0.000-0.056) ng/mL Meds: Medications Discontinued Medications Generic Name Dose Route Start Last Admin Trade Name Freq PRN Reason Stop Dose Admin Potassium Chloride 20 meq 05/30/20 01:28 05/30/20 01:35 Klor-Con M20 PO 05/30/20 01:29 20 meq ONETIME ONE Administration - Re-Assessments/Exams Free Text/Narrative Re-Assessment/Exam: 05/29/20 23:19 A 1 view chest x-ray was done which showed cardiomegaly but no significant infiltrates or failure. CBC, BMP and troponin were obtained. She maintained O2 saturations in the 90s with 2 L of oxygen, and if her labs are stable and troponin negative she can probably return to the alf. 05/30/20 01:34 Troponin unfortunately returned 0.353. Potassium was 3.0, the rest of her labs were reasonably stable. She was given 20 mEq of oral potassium, and [facility] was called to discuss transfer for cardiology evaluation. They asked for repeat Covid test which was positive, so they denied transfer as they have no "Covid bed available". Dr. Galindo at [facility] kindly accepted her to transfer for evaluation and treatment of suspected FL. She remained pain- free and stable while in the emergency room. Departure - Departure Time of Disposition: 02:18 Disposition: DC/Tfer to Other 70 Clinical Impression: Non-STEMI (non-ST elevated myocardial infarction), Hypokalemia - Discharge Information Referrals: Lee Rivera MD [Primary Care Provider] - Forms: ED Department Discharge Care Plan Goals: Patient will be transferred to [facility] for inpatient evaluation and further treatment of suspected myocardial infarction. Sepsis Event Note (ED) - Evaluation Sepsis Screening Result: No Definite Risk - Focused Exam Vital Signs: Vital Signs Temp Pulse Resp BP Pulse Ox 05/30/20 01:49 97.8 F 117 H 25 H 118/59 L 95 05/30/20 00:05 54 L 28 H 101/47 L 93 L 05/29/20 23:35 51 L 24 H 97/50 L 93 L 05/29/20 23:00 53 L 28 H 83/40 L 94 L 05/29/20 22:58 107 H 37 H 113/61 96 05/29/20 22:28 97.6 F 110 H 25 H 99/63 93 L - My Orders Last 24 Hours: My Active Orders 05/29/20 22:50 Chest 1V Frontal [CR] Stat 05/30/20 00:12 CORONAVIRUS COVID-19 RAPID [MOLEC] Routine - Assessment/Plan Last 24 Hours: My Active Orders 05/29/20 22:50 Chest 1V Frontal [CR] Stat 05/30/20 00:12 CORONAVIRUS COVID-19 RAPID [MOLEC] Routine
[2020-05-30] MEDS ORDERED: Potassium Chloride 20 MEQ Tab.ER PO ONE (01:28)
[2020-05-30 01:51] VITALS: BP 118/59; PULSE 117
--- NOTE | 2020-05-30 10:28 | CR ---
CHEST: Portable 05/29/2020 at 11:05 PM CLINICAL HISTORY:Chest pain COMPARISON:2017 FINDINGS: Heart is enlarged. Pulmonary vascularity is obscured by diffuse bilateral pulmonary infiltrates. Patient has had previous sternotomy. There are atherosclerotic changes in the aorta.. No effusions are seen. IMPRESSION: Diffuse bilateral pulmonary infiltrates. Patient has a history of CHF. This could represent pulmonary edema but pneumonia and/or pneumonitis should also be considered. Clinical correlation necessary Cardiomegaly Previous sternotomy
== END 2020-05-30 02:18 | disposition other institution (70) ==
LOC: JP.ED 22:24
DX: I21.4 Non-ST elevation (NSTEMI) myocardial infarction (principal); U07.1 COVID-19; E87.6 Hypokalemia; I48.91 Unspecified atrial fibrillation; I25.10 Atherosclerotic heart disease of native coronary artery without angina pectoris; I10 Essential (primary) hypertension; I25.2 Old myocardial infarction; E11.40 Type 2 diabetes mellitus with diabetic neuropathy, unspecified; F41.9 Anxiety disorder, unspecified; E66.9 Obesity, unspecified; Z68.28 Body mass index [BMI] 28.0-28.9, adult; Z88.8 Allergy status to other drugs, medicaments and biological substances; Z79.82 Long term (current) use of aspirin; Z79.01 Long term (current) use of anticoagulants; Z79.84 Long term (current) use of oral hypoglycemic drugs; Z79.899 Other long term (current) drug therapy; Z95.1 Presence of aortocoronary bypass graft
CPT/HCPCS: 36415; 71045; 80048; 84484; 85025; 93005; 99285; A9270; U0002; 93010

== ENCOUNTER 2020-06-21 06:33 | Day surgery (SDC) | payer MEDICARE ==
[2020-06-21] MEDS ORDERED: Sodium Chloride 0.9% 1,000 ML IV SCH (07:00)
[2020-06-21] MEDS ORDERED: Propofol 200 MG/20 ML SDV ONE (07:21)
[2020-06-21 08:46] VITALS: BP 137/73; PULSE 96
--- NOTE | 2020-06-21 10:21 | OR ---
DATE OF PROCEDURE: 06/21/2020 SURGEON: Molina Shearer MD PROCEDURE: Esophagogastroduodenoscopy. FINDINGS: Hiatal hernia approximately 4 cm. COMPLICATIONS: None. R AND D LAB TECHNICIAN: None. ANESTHETIC: MAC. PREOPERATIVE DIAGNOSIS: Dysphagia. POSTOPERATIVE DIAGNOSIS: Dysphagia. RISKS: Risks, benefits, alternatives, and limitations including, but not limited to, infection, bleeding, and perforation. PROCEDURE IN DETAIL: The patient was placed in left lateral decubitus position. EGD scope was introduced and advanced atraumatically to the 2nd part of the duodenum. No evidence of duodenitis or ulceration. In the stomach itself, there is no gastritis or ulceration. There is approximately 4 cm hiatal hernia. This did not show any abnormalities. The GE junction was normal with no evidence of reflux, inflammatory lesions, masses, etc. The main esophagus was inspected; however, the patient developed some saturation issues at the end of the case. Therefore, there was only cursory examination of the proximal esophagus and the risks of reintroducing the scope were evaluated and felt not to be having changes compared to the respiratory challenges. The patient tolerated the procedure well. Molina Shearer MD /[id number]
== END 2020-06-21 08:49 | disposition home or self-care (01) ==
LOC: JP.SDS 06:33
PROVIDERS: ATTEND Surgery
DX: R13.10 Dysphagia, unspecified (principal); K44.9 Diaphragmatic hernia without obstruction or gangrene; I48.91 Unspecified atrial fibrillation; I25.10 Atherosclerotic heart disease of native coronary artery without angina pectoris; I10 Essential (primary) hypertension; E78.5 Hyperlipidemia, unspecified; E11.9 Type 2 diabetes mellitus without complications; E66.9 Obesity, unspecified; Z95.1 Presence of aortocoronary bypass graft; Z88.8 Allergy status to other drugs, medicaments and biological substances
CPT/HCPCS: 43235; J2704; J7030